=== PATIENT | male | born 1950 | race Caucasian/White ===

== ENCOUNTER 2023-06-07 16:56 | Inpatient (IN) | payer OTHER, SELFPAY ==
[2023-06-07] VITALS (11 sets, daily range): BP systolic 98–160; BP diastolic 24–90; BMI 24.8
[2023-06-07 13:46] LABS: % Basophils 0.4 % (0-2); % Eosinophils 1.6 % (0-6); % Immature Granulocytes 0.2 % (0-0.5); % Lymphocytes 18.5 % (20.5-51.1); % Monocytes 8.5 % (1.7-9.3); % Neutrophils 70.8 % (42.2-75.2); Absolute Eosinophils 0.1 10^3/uL (0-0.7); Absolute Lymphocytes 1.5 10^3/uL (1.2-3.4); Absolute Monocytes 0.7 10^3/uL (0.1-0.6); Absolute Neutrophils 5.9 10^3/uL (1.4-6.5); Hematocrit 42.3 % (39.0-52.0); Hemoglobin 14.2 g/dL (13.0-18.0); Mean Corp Hgb Conc. 33.6 g/dL (33.0-37.0); Mean Corpuscular Hgb 30.1 pg (27.0-31.0); Mean Corpuscular Volume 89.8 fL (80.0-94.0); Mean Platelet Volume 9.1 fL (7.4-10.4); Nucleated Red Blood Cells % 0 % (-); Platelet Count 215 10^3/uL (130-400); Red Blood Cell Count 4.71 10^6/uL (4.70-6.10); Red Cell Dist. Width 14.6 % (11.5-14.5); White Blood Cell Count 8.3 10^3/uL (4.8-10.8)
[2023-06-07 13:50] LABS: Lactic Acid 3.4 mmol/L (0.7-2.0)
[2023-06-07 13:52] LABS: ALT (SGPT) 21 U/L (0-50); AST (SGOT) 20 U/L (17-59); Albumin 2.6 g/dl (3.5-5.0); Alkaline Phosphatase 105 U/L (38-126); Blood Urea Nitrogen 17 mg/dl (9-20); Calcium 8.6 mg/dl (8.4-10.2); Carbon Dioxide 26 mmol/L (22-30); Chloride 101 mmol/L (98-107); Glucose 203 mg/dl (70-99); Potassium 5.2 mmol/L (3.5-5.1); Sodium 133 mmol/L (135-145); Total Bilirubin 0.5 mg/dl (0.2-1.3); Total Protein 5.5 g/dl (6.3-8.2); eGFR > 60.00
[2023-06-07 14:24] LABS: Lactic Acid 3.1 mmol/L (0.7-2.0)
[2023-06-07 14:36] LABS: Troponin I < 0.012 ng/ml
--- NOTE | 2023-06-07 14:51 | ED.GENMED ---
History of Present Illness
General
Chief Complaint: Breathing Problem
Source: patient and spouse
Exam Limitations: none
Time Seen by Provider: 06/07/23 13:32
Nursing documentation reviewed up to this point in time: agreed with
Travel History
Have you had any contact with someone who has COVID-19?: No
Do you have any symptoms of coronavirus? Fever > 100 degrees, chills, cough, shortness of breath, sore throat, loss of taste or smell, muscle aches, or headache?: No
History of Present Illness
History of Present Illness:
72-year-old male with Mari history of lung cancer currently on oral chemo treated at [place], history of atrial fibrillation currently on Eliquis, CAD hypertension hyperlipidemia diabetes presenting to the emergency department today with
concerns of shortness of breath and cough worsening over the past week was seen at [facility] 5 days ago had a thoracentesis but has had ongoing symptoms since. Claims that he had subjective fevers but denies any objective fevers. Denies specific
chest pain nausea vomiting. He claims that his exercise tolerance has been decreasing as well.
Past History
Past History
ED Past Medical History: Arrthythmia (Paroxysmal atrial fibrillation), CAD, Cancer (Prostate; adenocarcinoma of the lung diagnosed August 2021), HTN, Hypercholesterolemia and IDDM
ED Past Surgical History: Cardiac (CABG 2020) and Urological (Prostatectomy, urethral cuff)
Social History
Tobacco: Non-smoker
Alcohol: None
Drug: None
Personal:
Living: with family
Employment: Retired
Family History
Family History: Other (Noncontributory)
Review of Systems
Review of Systems
Allergies reviewed?: Yes
All Other Systems: ROS reviewed and negative except as documented in HPI and ROS
Phy Exam
Physical Exam
Physical Exam:
GENERAL: Alert , in no apparent distress
EYE: pupils equal and reactive
NECK: Supple, no significant adenopathy.
ENT: o/p clr, mmm.
CARDIAC: Crackles throughout the left lung mainly to the left lower lung, regular rate and rhythm .
LUNGS: Clear breath sounds bilaterally, no acute respiratory distress, no wheezes/rales/rhonchi
ABDOMEN: Soft, without focal tenderness, no r/g, no cvat
NEUROLOGICAL: Alert and oriented, no focal neuro deficits
SKIN: Warm and dry, skin intact.
MUSCULOSKELETAL: No edema, well perfused.
PSYCH: Normal and appropriate interaction.
Scores
Heart Failure Risk
Heart Failure Risk Score: Not Applicable
Course
Orders/Labs/Results
Orders:
Orders
06/07/23 13:29
EKG [Electrocardiogram (*1)] Stat
Reason for Study: Shortness of Breath
EKG- Treatment ONCE
06/07/23 13:31
Complete Blood Count/With Diff Urgent
Comprehensive Metabolic Panel Urgent
Lactate Level [Lactic Acid] Urgent
06/07/23 13:43
CT Chest Pe Study Urgent
Comment:
Reason For Exam: lung ca, cough, sob,
Cardiac Monitoring- Treatment ONCE
06/07/23 13:44
Electrocardiogram (*1) Stat
Reason for Study: Other
Other Reason for Exam: pneumonia
EKG- Treatment ONCE
06/07/23 13:55
Lactic Acid Q4H
Comment: CANCEL 2nd LACTIC ACID IF 1st LACTIC ACID IS LESS THAN 2
Troponin I Urgent
Blood Culture Q30M
ÁLVARO Source: Blood/Venous
Specimen Description:
06/07/23 15:18
Cefepime HCl [Maxipime] 2,000 mg IV NOW STA
06/07/23 15:38
0.9% Sodium Chloride 500 ml [Nss] 500 ml IV BOLUS
06/07/23 15:41
Vancomycin [Vancocin] 2,000 mg 0.9% Sodium Chloride 500 ml [Nss] 500 ml IV NOW
06/07/23 15:54
Blood Culture Q30M
ÁLVARO Source: Blood/Venous
Specimen Description:
06/07/23 16:22
Diabetes Management by Nurse Practitioner Routine
Consulting Provider: Liberty Mcdaniel
Was provider already notified?: Yes
PULMONARY CONSULT Routine
Consulting Provider: Reny Mabry
Was physician already notified: Yes
06/07/23 16:23
Admit/Transfer Patient As Directed
Co-Sign Provider:
Level of Care: Inpatient admission
Assign to:: Telemetry
Physician / Group: jack davis
Diagnosis: pneumonia
Reason for Telemetry: Arrhythmia
Date to Stop Telemetry: 06/10/23
Time to Stop Telemetry: 11:00
Reason for Hospitalization: pneumonia
pleural effusion
Expected length of stay greater than two midnights?: Yes
ELOS- Estimated Length of Stay in days: 3
I certify the patient meets the requirements for IP care: Yes
06/07/23 16:26
Code Status As Directed
Resuscitation Status: Full Code
06/07/23 16:52
Pantoprazole [Protonix IV] 40 mg IV NOW STA
06/07/23 16:54
Metoprolol [Lopressor] 5 mg IV NOW STA
06/07/23 17:09
Lactic Acid Q4H
Comment: CANCEL 2nd LACTIC ACID IF 1st LACTIC ACID IS LESS THAN 2
Procalcitonin Stat
PCT Algorithmm Indication: Respiratory
06/07/23 18:25
Dextrose 50%-Water [Dextrose 50% Syringe] 12.5 grams IV [id number] PRN
Enoxaparin Sodium [Lovenox] 40 mg SC QPM
Glucagon [GlucaGen] 1 mg IM PRN PRN
Insulin Pump [Patient's Own Insulin Pump:] 1 ea SC ACHS
Ipratropium/Albuterol Sulfate [Duoneb] 3 ml INH R Q4HPRN PRN
06/07/23 18:25
Legionella Urinary Antigen Routine
ÁLVARO Source: Urine
Specimen Description:
Respiratory Culture/Gram Stain Routine
ÁLVARO Source: Sputum
Specimen Description:
Activity As Directed
Activity Level: Out of Bed-Early Mobility
Bedside Glucose Monitoring As Directed
Frequency: AC&HS
Comment: Change to q6h if pt on TPN, tube feeding or not eating
Intake/ Output As Directed
Frequency: Per unit guidelines
Vital Signs As Directed
Frequency: Per unit guidelines
Weight As Directed
Frequency: Once
Comment: on admission
Pt Eval And Treat Routine
Activity Level: As Tolerated
DX Deep Vein Thrombosis Video Routine
06/07/23 19:00
Gabapentin [Neurontin] 600 mg PO BID@0800,1700
Insulin Pump [Patient's Own Insulin Pump] See Dose Instructions SC ACHS
METFORMIN HCl [Glucophage] 1,000 mg PO BID@0800,1700
06/07/23 20:00
Guaifenesin [Mucinex] 600 mg PO Q12
06/07/23 22:00
Gabapentin [Neurontin] 1,200 mg PO HS
Pravastatin Sodium [Pravachol] 40 mg PO HS
Trazodone [Desyrel] 200 mg PO HS
06/08/23 Breakfast
1800 calorie (15 carb) Diabetic
At Your Request: Full Participation
Cefepime HCl [Maxipime] 1,000 mg IV Q8H
06/08/23 07:29
Basic Metabolic Panel IN AM
Complete Blood Count/No Diff IN AM
Glycohemoglobin (HgbA1c) IN AM
06/08/23 08:00
Amlodipine [Norvasc] 7.5 mg PO DAILY
Aspirin Chewable [Low Strength Aspirin] 81 mg PO DAILY
Cetirizine HCl [Zyrtec] 10 mg PO DAILY
Cyclobenzaprine HCl [Flexeril] 10 mg PO DAILY
Escitalopram Oxalate [Lexapro] 10 mg PO DAILY
Gemfibrozil [Lopid] 600 mg PO DAILY
Metoprolol [Lopressor] 25 mg PO DAILY
Pantoprazole [Protonix] 40 mg PO DAILY
06/09/23 06:00
Basic Metabolic Panel IN AM
Complete Blood Count/No Diff IN AM
06/10/23 06:00
Basic Metabolic Panel IN AM
Complete Blood Count/No Diff IN AM
06/10/23 11:00
DC Protocol for Telemetry ONCE
06/11/23 06:00
Basic Metabolic Panel IN AM
Complete Blood Count/No Diff IN AM
06/12/23 06:00
Basic Metabolic Panel IN AM
Complete Blood Count/No Diff IN AM
Abnormal Lab Results
06/07/23 06/07/23
13:31 13:55
RDW 14.6 H %
(11.5-14.5)
Absolute Monos (auto) 0.7 H 10^3/uL
(0.1-0.6)
Lymphocytes % 18.5 L %
(20.5-51.1)
Sodium 133 L mmol/L
(135-145)
Potassium 5.2 H mmol/L
(3.5-5.1)
Glucose 203 H mg/dl
(70-99)
Lactic Acid 3.4 H mmol/L 3.1 H mmol/L
(0.7-2.0) (0.7-2.0)
Total Protein 5.5 L g/dl
(6.3-8.2)
Albumin 2.6 L g/dl
(3.5-5.0)
06/07/23 13:31
06/07/23 13:31
Vital Signs
Initial and Last Documented VS:
Initial Vital Signs
Temp Pulse Resp BP Pulse Ox
97.7 F 98 20 132/79 97
06/07/23 12:46 06/07/23 12:46 06/07/23 12:46 06/07/23 12:46 06/07/23 12:46
Last Documented Vital Signs
Temp Pulse Resp BP Pulse Ox
98.7 F 110 18 152/80 96
06/07/23 23:12 06/07/23 23:12 06/07/23 23:12 06/07/23 23:12 06/07/23 23:12
MDM/Problems Addressed
MDM/Problems Addressed:
72-year-old male presenting to the emergency department today with concerns of shortness of breath and cough worsening for the past 10 days recent thoracentesis at [facility] 5 days ago ongoing symptoms since has had subjective fevers but denies
objective fever. Upon arrival patient's vital signs are normal normal pulse ox no white count lactic acid was elevated to 3.4. Concern the patient does have a history of cancer with elevated lactic acid and is immunosuppressed we will start IV
antibiotics cefepime and vancomycin. Additionally CT scan showing a large left pleural effusion with adjacent pulmonary consolidation atelectasis versus pneumonia. Patient will be admitted for further treatment. Patient would likely benefit from
tap of the effusion. Additionally concern for pneumonia and immunosuppressed state patient started on IV antibiotics.
*Critical Care Note
Total Time (30-74mins, 75-104mins- exclusive of procedures): Not Applicable
ED Attending Note
-
Portions of this chart may have been created with voice recognition software.� Occasional wrong word or��sound alike� substitutions may have occurred due to the inherent limitations of voice recognition software.
Discharge Plan
Departure
Patient Disposition: Admit
Date of Disposition: 06/07/23
Time of Disposition: 15:43
Admit to: Med/Surg
Admit to doctor: Norman
Presentation/result/management discussed w/ accepting MD/DO: Hospitalist
Patient with high blood pressure during this ER visit?: No
Condition: Fair
Covid-19: Not Applicable
Discharge Problem:
Pleural effusion, Pneumonia
Interventions
Interventions:
*Risk Screen - Suicide Last Done: 06/07/23 20:10
*General Assessment Last Done: 06/07/23 12:46
*Neglect/Abuse Screening Last Done: 06/07/23 14:26
ED- Fall Risk Assessment Last Done: 06/07/23 14:26
*ED COVID-19 Vaccine History Last Done: 06/07/23 12:46
*Nursing Disposition Last Done: 06/07/23 17:30
ED- Cardiac Assessment Last Done: 06/07/23 14:26
ED- Pulmonary Assessment Last Done: 06/07/23 14:26
Discharge Date and Time
Discharge Date/Time: 06/07/23 18:02
[2023-06-07] MEDS: MAXIPIME 2000 MG IV (15:28)
--- NOTE | 2023-06-07 15:46 | HPS.HSE ---
Addendum entered and electronically signed by Anthony Austin MD 06/07/23 18:11:
I saw and examined the patient.
The AGING BOX HAND's note was reviewed and I agree with the note.
Patient is a 72-year-old male with history of stage IV adenocarcinoma of right lung came to ER with new onset of left-sided effusion. Patient was hospitalized in January 03 in our hospital for similar presentation of left-sided pleural effusion
requiring thoracentesis. In May 06 patient again required thoracentesis followed by this Thursday patient require another thoracentesis. Patient was in [facility] and primary oncologist in [facility]. Patient was in [facility] as
well. Patient started to having cough and shortness of breath and came to [place] for further care. CT chest in ER showed recurrence of left-sided effusion. Patient denies of having any fever episode/productive phlegm.
HEENT: No pallor, cyanosis, or jaundice. Throat clear.
NECK: Supple. No JVD.
RESPIRATORY: Lungs clear to auscultation.
CVS: S1, S2 normal. RRR. No murmur, rub or gallop.
ABDOMEN: Soft, non-tender. No distension. BS+/normal.
EXTREMITIES: No peripheral cyanosis or edema.
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 No focal deficits.
Recurrent malignant left-sided pleural effusion
-Thoracentesis done in January 03 x2
-Again in May 06 x1
-Earlier in week on Thursday in [facility].
-CT chest showing recurrence of left-sided effusion
-Patient not hypoxic/dyspneic
-Pulmonology evaluation requested as patient may benefit with Pleurx tube placement
Stage IV adenocarcinoma of right lung
Was on Capmatinib therapy discontinued due to edema
History of right malignant effusion with Pleurx placement in with removal
-Primary oncologist at [facility]
paroxysmal afib
-not on AC. continue metoprolol
IDDM
- patient have insulin pump and ok managing glucose
Full code - confirmed with patient
Original Note:
Family Physician
-
Family Physician: Tamanna Schmitt
Chief Complaint
-
sob
cough
History of Present Illness
72-year-old male with medical history of lung ca on oral chemo, pleural effusion, atrial fibrillation currently on Eliquis, CAD hypertension hyperlipidemia diabetes presenting to the emergency department today with concerns of shortness of breath
and cough worsening over the past week. sob worse with activity. cough is non productive. chest pain with cough. he feels feverish. did not check the temperature at home. denied abdominal pain, n,v,d. denied dysuria or hematuria. denied [place], dizzy or
syncopal episode. was seen at [facility] 5 days ago had a thoracentesis but has had ongoing symptoms since.
CT chest with pleural effusion and pneumonia. giving iv abx.
Medical History
Past Medical History
Past Medical History: Reports Other
Additional Past Medical History:
atrial fib
CAD
HTN
HLD
lung ca
Past Surgical History: Reports Other
Additional Past Surgical History:
CABG
prostatectomy
ureteral cuff
Social History
Tobacco: Former Smoker
Alcohol: None
Drug: None
Personal:
Living: With Family
Family History
Family History: Not pertinent
Allergies / Home Medications
Allergies reflects when Allergies were last updated in [facility].
Home Medications with original date entered in [facility]
Allergy/Medication List:
Allergies
Allergy/AdvReac Type Severity Reaction Status Date / Time
house dust mite Allergy Itching Verified 06/07/23 12:49
lisinopril Allergy COUGH Verified 06/07/23 12:49
pentazocine [From Talwin] Allergy PARALYZED Verified 06/07/23 12:49
Home Medications
Insulin Pump [Patient's Own Insulin Pump:] 0 ea SC ACHS Diabetes 06/12/20
aspirin 81 mg chewable tablet 81 mg PO DAILY Blood clot prevention/tx 06/12/20
escitalopram oxalate 10 mg tablet 10 mg PO DAILY Depression 06/12/20
metformin 500 mg tablet 1,000 mg PO BID Diabetes 06/12/20
omeprazole 20 mg capsule,delayed release 20 mg PO DAILY Gastrointestinal issue 06/12/20
amlodipine 5 mg tablet (Norvasc) 7.5 tab PO DAILY Blood pressure 08/31/21
trazodone 100 mg tablet 200 mg PO HS Mental Health/Anxiety 08/31/21
cetirizine 10 mg tablet (Zyrtec) 10 mg PO DAILY 06/07/23
cyclobenzaprine 10 mg tablet 10 mg PO DAILY 06/07/23
gabapentin 100 mg capsule 1,000 mg PO HS 06/07/23
gabapentin 100 mg capsule 500 mg PO BID@0800,1700 06/07/23
gemfibrozil 600 mg tablet 600 mg PO DAILY 06/07/23
metoprolol tartrate 25 mg tablet 25 mg PO DAILY 06/07/23
pravastatin 40 mg tablet 40 mg PO HS 06/07/23
Review of Systems
-
Constitutional: Reports No Symptoms
EENT: Reports No Symptoms
Respiratory: Reports Cough and Trouble Breathing
Cardiac: Reports No Symptoms
Abdomen/GI: Reports No Symptoms
: Reports No Symptoms
Musculoskeletal: Reports No Symptoms
Skin: Reports No Symptoms
Neurological: Reports No Symptoms
Endocrine: Reports No Symptoms
Hematologic/Lymphatic: Reports No Symptoms
Psych: Reports No Symptoms
Physical Exam
Vital Signs
Vital Signs
Temp Pulse Resp BP Pulse Ox
97.7 F 92 17 129/68 98
06/07/23 12:46 06/07/23 15:30 06/07/23 15:30 06/07/23 15:00 06/07/23 15:30
Physical Exam
General: Well Developed, Well Nourished and No Apparent Distress
HEENT: NormoCephalic, Moist mucous membranes and Atraumatic
Respiratory: Clear
Cardiac: S1/S2 and Regular Rhythm; No Murmur or Rub
GI: Soft, Non Tender, Non Distended and Normal Bowel Sounds; No Organomegaly
Rectal: Deferred by Provider
Musculoskeletal: No Clubbing, No Cyanosis and No Edema
Skin: No Rash
Neuro: AO x 3 and Nonfocal/grossly intact
Psych: Calm
Laboratory Results
-
06/07/23 13:31
06/07/23 13:31
Laboratory Results
Lactic Acid 3.1 mmol/L (0.7-2.0) H 06/07/23 13:55
Total Bilirubin 0.5 mg/dl (0.2-1.3) 06/07/23 13:31
AST 20 U/L (17-59) 06/07/23 13:31
ALT 21 U/L (0-50) 06/07/23 13:31
Alkaline Phosphatase 105 U/L (38-126) 06/07/23 13:31
Troponin I < 0.012 ng/ml 06/07/23 13:55
Data Reviewed
-
CT Scan: Report Reviewed by me
Lab Data: Labs Reviewed by me
Impression/Plan
-
# sob/cough likely from pleural effusion
-CT chest with impression of No evidence of pulmonary embolism.Large left pleural effusion. Adjacent pulmonary parenchymal consolidation, atelectasis versus pneumonia.
-iv vanco and cefepime in ER
-will continue IV cefepime
-blood culture sent from ER
-Tylenol prn for fever
-Mucinex prn for cough
-lactic 3.1
-trend lactic
-underwent thoracentesis last week , yielded 1500ml
-pulmonology consulted for Pleurx cath
# History of lung cancer
-On oral chemo
-follow [facility] oncologist
# Hyponatremia/hypokalemia
-Sodium 133, K5.2
-continue to monitor
#paroxysmal atrial fibrillation
-EKG with NSR
-metoprolol continued
#Insulin-dependent diabetes mellitus
-diabetic AGING BOX HAND consulted regarding insulin Pump
-metformin continued
#Essential hypertension
-Norvasc continued
Hyperlipidemia
-gemfibrozil continued
-statin continued
#GERD
-PPI continued
History of prostate cancer with prostatectomy
#Coronary disease with history of bypass
-asa continued
#depression
-Celexa continued
Full code
[2023-06-07] MEDS: VANCOCIN 540 MG IV (15:47)
[2023-06-07] MEDS: NSS 500 IV (15:47)
[2023-06-07 17:25] LABS: Lactic Acid 1.9 mmol/L (0.7-2.0)
[2023-06-07 17:48] LABS: Procalcitonin < 0.05 ng/ml (0.0-0.25)
[2023-06-07 18:26] LABS: Glucose - Point of Care 77 mg/dl (70-99)
[2023-06-07] MEDS: MUCINEX 600 MG PO (20:20)
[2023-06-07] MEDS: GLUCOPHAGE 1000 MG PO (20:20)
[2023-06-07] MEDS: NEURONTIN 600 MG PO (20:20)
[2023-06-07] MEDS: LOVENOX 40 MG SC (20:21)
[2023-06-07] MEDS: PATIENT'S OWN INSULIN PUMP SC (20:31)
--- NOTE | 2023-06-07 21:19 | PTCARENOTE ---
Patient received in bed from ED @ 1900. Pt AAOx3, ambulated from stretcher to bed. Oriented to room and call mackenzie.
[2023-06-07 21:24] LABS: Glucose - Point of Care 201 mg/dl (70-99)
[2023-06-07] MEDS: NEURONTIN 1200 MG PO (21:55)
[2023-06-07] MEDS: DESYREL 200 MG PO (21:55)
[2023-06-07] MEDS: PRAVACHOL 40 MG PO (21:55)
[2023-06-07] MEDS: PATIENT'S OWN INSULIN PUMP 6 UNITS SC (22:06)
[2023-06-08] MEDS: MAXIPIME 1000 MG IV ×2 (05:10→13:30)
[2023-06-08] MEDS: STERILE WATER FOR INJECTION 10 ML IV ×2 (05:11→13:30)
[2023-06-08 07:30] VITALS: BP 128/84
[2023-06-08 08:01] LABS: Hematocrit 40.9 % (39.0-52.0); Mean Corp Hgb Conc. 34.2 g/dL (33.0-37.0); Mean Corpuscular Hgb 30.2 pg (27.0-31.0); Mean Corpuscular Volume 88.3 fL (80.0-94.0); Platelet Count 200 10^3/uL (130-400); Red Blood Cell Count 4.63 10^6/uL (4.70-6.10); Red Cell Dist. Width 14.6 % (11.5-14.5)
[2023-06-08] MEDS: PROTONIX 40 MG PO (08:18)
[2023-06-08] MEDS: LOW STRENGTH ASPIRIN 81 MG PO (08:18)
[2023-06-08] MEDS: LEXAPRO 10 MG PO (08:18)
[2023-06-08] MEDS: FLEXERIL 10 MG PO (08:18)
[2023-06-08] MEDS: NORVASC 7.5 MG PO (08:18)
[2023-06-08] MEDS: ZYRTEC 10 MG PO (08:19)
[2023-06-08] MEDS: LOPID 600 MG PO (08:19)
[2023-06-08] MEDS: NEURONTIN 600 MG PO (08:19)
[2023-06-08] MEDS: LOPRESSOR 25 MG PO (08:19)
[2023-06-08] MEDS: GLUCOPHAGE 1000 MG PO (08:19)
[2023-06-08] MEDS: MUCINEX 600 MG PO (08:19)
[2023-06-08] MEDS: PATIENT'S OWN INSULIN PUMP SC ×2 (08:24→10:32)
[2023-06-08 08:25] LABS: Glucose - Point of Care 103 mg/dl (70-99)
[2023-06-08 08:27] LABS: Blood Urea Nitrogen 15 mg/dl (9-20); Calcium 8.2 mg/dl (8.4-10.2); Carbon Dioxide 25 mmol/L (22-30); Chloride 106 mmol/L (98-107); Estimated Creatinine Clearance 62 ml/min; Glucose 110 mg/dl (70-99); Potassium 4.5 mmol/L (3.5-5.1); Sodium 134 mmol/L (135-145); eGFR > 60.00
--- NOTE | 2023-06-08 08:31 | PN.DE.MGMTRT ---
Insulin Management
- -
06/08/2023: Insulin Pump Management Consult
72 year old male admitted Choledocholithiasis, presumed Acute cholangitis, E. coli/Klebsiella bacteremia and left pleural effusion.
PMH: ASCVD, HTN, HCL, prostate CA, diabetes. Was using Tandem Tslim X2 insulin pump with DexCom G6 CGM RELAY CHECKER. A1C 7.5%, [facility] Insulin pump currently active and in place. Glucose has been stable, 77 before
dinner, minor elevation @HS up to 201 and down to 103 this AM before breakfast.
Pt is awake, alert and oriented, at bedside, has brought in pump supplies and insulin, He is able to manage Insulin pump, settings as follows:
Basal corrective CHO ratio target
12am 1.15 30 1:17 110
2am 1.65 30 1:1.7 110
12pm 1.1 30 1:1.4 110
5pm 1.1 30 1:1.4 110
6pm 1.1 30 1:1.4 110
9pm 1.3 30 1:7 110
24 hour basal total 33.34 units
Patient has his CGM- DexCom in place, made aware that nursing will check accucheks ACHS.
Will cont current regimen, without changes to pump settings.
Patient to correct and take insulin via pump for meals and corrections.
Discussed with Nurse to provide pt with Insulin pump log sheet
Diabetes History
- -
Type of Diabetes: 1
Pre-Admission Diabetes Regimen
06/07/23 06/08/23
13:31 07:29
Creatinine 1.1 1.1
Insulin Pump Settings
IP Diabetes Regimen
06/07/23 06/07/23 06/07/23
13:31 18:25 21:22
Glucose 203 H
POC Glucose 77 201 H
06/08/23 06/08/23
07:29 08:23
Glucose 110 H
POC Glucose 103 H
Patient Education
[2023-06-08 09:15] VITALS: BP 112/80; BP_SYST 93
[2023-06-08 09:22] LABS: Glycohemoglobin (HgbA1c) 8.7 % (4.0-5.6)
[2023-06-08 09:24] VITALS: BMI 24.8
[2023-06-08 09:48] VITALS: BP 99/65; BP_SYST 88
[2023-06-08 10:14] LABS: Body Fluid pH 7.38
[2023-06-08 10:23] LABS: Body Fluid WBC 588 /CUMM
[2023-06-08 10:33] LABS: Body Fluid Second Tech AMA
[2023-06-08 10:39] LABS: Body Fluid Glucose 108 mg/dl; Body Fluid LDH 576 U/L; Body Fluid Protein 3.6 g/dl
--- NOTE | 2023-06-08 11:09 | CM ---
Patient seen bedside with spouse.
Patient lives in 2 story home with 1 step to enter.
Patient independent prior to admission with a cane.
Patient has had VN in the past with Carlene KINCAID.
PCP: Dr Schmitt
Pharmacy: [facility]
Plan: home no needs anticipated.
[2023-06-08 11:30] VITALS: BP 101/58
[2023-06-08 11:38] LABS: Glucose - Point of Care 176 mg/dl (70-99)
[2023-06-08 14:15] VITALS: PULSE 89; O2SAT 96
[2023-06-08 15:30] VITALS: BP 140/73
--- NOTE | 2023-06-08 15:36 | W.PN.HOSP.TC ---
Today's Communication/Plan
-
Stop AB
Discharge
Assessment / Plan
Assessment / Plan
72-year-old male with pleural effusion. Presents with increasing shortness of breath and cough nonproductive he also felt feverish did not check temperatures at home. He follows up with [facility] had a thoracentesis 5 days prior to arrival.
CVS: S1-S2 normal
Chest:decreased left base,
Abdomen: Soft, NT / Bowel sounds present
Extremities: No edema, normal pulses
ENGRAVER RUBBER: Non focal exam
# Recurrent pleural effusion
Previous pleural effusion was in August 2021
History of right-sided Pleurx placement and removal in the past
Thoracentesis 5 days prior to arrival and also on 06/08/2023 with 1400 mL of dark fluid
He had another thoracentesis on May 07 at [facility]
Stop antibiotics
Procalcitonin negative
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
Was on capmatinib 100 August 2022 which was then discontinued secondary to edema.
He is on a chemo pill which the family does not know the name.
# Lactic acidosis-better
Unlikely related to infection
# History of left lower lobe PE August 2021
# Paroxysmal atrial fibrillation on Eliquis with outpatient
# History of prostate cancer status post prostatectomy
# Coronary disease with history of CABG
Aspirin, metoprolol
# Hyperlipidemia-continue gemfibrozil, pravastatin
# Diabetes-insulin pump and metformin
Hemoglobin A1c 8.7
# Hypertension-on Norvasc, metoprolol
# History of E. coli and Klebsiella bacteremia secondary to cholangitis
# Depression-Lexapro, trazodone
# GERD-PPI
# Ex-smoker
# DVT prophylaxis-
Eliquis
Patient wants to go to [facility] for procedure he fears that it is not covered at [facility]. At present patient feels a lot better after thoracentesis. Therefore he wishes to go home and pursue this as an outpatient. Discussed with
pulmonary okay for discharge. No need for antibiotics. Patient is aware that he needs repeat x-rays as outpatient he is aware to get Pleurx done as outpatient so that,He does not end up in hospital in an emergency situation requiring thoracentesis.
Discharge time 32 min
Anticipated Discharge: Today
Subjective/Interval History
-
Date of Service: June 08, 2023
Objective Data
-
Labs:
Laboratory Results
06/08/23
07:29
WBC 8.0
Hgb 14.0
Hct 40.9
Plt Count 200
Sodium 134 L
Potassium 4.5
Chloride 106
Carbon Dioxide 25
BUN 15
Creatinine 1.1
Glucose 110 H
Calcium 8.2 L
Vital Signs:
Vital Signs
Temp Pulse Resp BP Pulse Ox
98.2 F 72 16 101/58 98
06/08/23 11:30 06/08/23 11:30 06/08/23 11:30 06/08/23 11:30 06/08/23 11:30
--- NOTE | 2023-06-08 15:46 | CON.PUL ---
Consultation
Consultation Request
Date/Time Consultation Requested: 06/08/2023
Date/Time Consultation Performed: 06/08/2023
Requesting Provider: Dr. Potts
Performing Provider: Dr. Charles Urbano
Reason for Consultation: Recurrent malignant pleural effusion
Medical History
-
History of Present Illness:
72-year-old man with history of stage IV adenocarcinoma of the lung, came to the hospital with a new pleural effusion. He had thoracentesis in December 2022 at [facility] with similar presentation.
In April of this year again required thoracentesis, required additional thoracentesis this past Thursday.
He usually follows up with oncology at [facility].
Came to [facility] with cough and shortness of breath.
CT of the chest demonstrated enlarged left pleural effusion.
Patient underwent thoracentesis ordered by our team. No complications.
Patient currently denies any chest pain or shortness of breath.
Reports improvement after large-volume thoracentesis.
Past Medical History
Past Medical History: Other (See assessment and plan section)
Social History
Tobacco: Non-smoker
Alcohol: None
Drug: None
Family History
Family History: Reviewed & Not Pertinent
Allergies / Home Medications
Allergies
Allergy/AdvReac Type Severity Reaction Status Date / Time
house dust mite Allergy Itching Verified 06/07/23 12:49
lisinopril Allergy COUGH Verified 06/07/23 12:49
pentazocine [From Talwin] Allergy PARALYZED Verified 06/07/23 12:49
Home Medications
Medication Instructions Recorded Confirmed Last Taken Type
Insulin Pump [Patient's Own 0 ea SC ACHS Diabetes 06/12/20 06/07/23 12/13/22 08:00 History
Insulin Pump:]
aspirin 81 mg chewable tablet 81 mg PO DAILY Blood clot 06/12/20 06/07/23 06/07/23 History
prevention/tx
escitalopram oxalate 10 mg tablet 10 mg PO DAILY Depression 06/12/20 06/07/23 06/07/23 History
metformin 500 mg tablet 1,000 mg PO BID Diabetes 06/12/20 06/07/23 06/07/23 History
omeprazole 20 mg capsule,delayed 20 mg PO DAILY Gastrointestinal 06/12/20 06/07/23 06/07/23 History
release issue
amlodipine 5 mg tablet (Norvasc) 7.5 tab PO DAILY Blood pressure 08/31/21 06/07/23 06/07/23 History
trazodone 100 mg tablet 200 mg PO HS Mental Health/Anxiety 08/31/21 06/07/23 06/06/23 History
cetirizine 10 mg tablet (Zyrtec) 10 mg PO DAILY Allergies 06/07/23 06/07/23 06/07/23 History
cyclobenzaprine 10 mg tablet 10 mg PO DAILY Muscle Spasms 06/07/23 06/07/23 06/07/23 History
gabapentin 100 mg capsule 1,000 mg PO HS Neurological 06/07/23 06/07/23 06/06/23 History
Condition
gabapentin 100 mg capsule 500 mg PO BID@0800,1700 06/07/23 06/07/23 06/07/23 History
Neurological Condition
gemfibrozil 600 mg tablet 600 mg PO DAILY High Cholesterol 06/07/23 06/07/23 06/07/23 History
metoprolol tartrate 25 mg tablet 25 mg PO DAILY Blood Pressure 06/07/23 06/07/23 06/07/23 History
pravastatin 40 mg tablet 40 mg PO HS High Cholesterol 06/07/23 06/07/23 Unknown History
Review of Systems
-
History Source: Patient
All other systems: Negative unless noted
Vitals / Labs / Diagnostic Testing
Vital Signs
Temp Pulse Resp BP Pulse Ox
98.2 F 72 16 101/58 98
06/08/23 11:30 06/08/23 11:30 06/08/23 11:30 06/08/23 11:30 06/08/23 11:30
Lab Data
06/08/23 07:29
06/08/23 07:29
Microbiology
06/07/23 13:55 Blood/Venous Blood Culture - Preliminary
No Growth in 24 hours- Final report to follow
06/08/23 09:58 Pleural Fluid Gram Stain - Preliminary
Diagnostic Testing:
Physical Exam
-
HEENT: Normocephalic
Cardiovascular: S1/S2 and Regular Rhythm
Respiratory: Clear and Other (Decreased breath sounds on the left base)
GI: Soft and Non Distended
Neurology: Awake, Alert, Oriented and No Motor Deficits
Skin: Warm
General: Respiratory Distress (n)
Assessment
-
72-year-old man with history of metastatic lung cancer. Admitted with cough and shortness of breath. Found to have a left pleural effusion which is recurrent and known to be malignant since December 2022. Multiple thoracentesis including
December, April 2023 and May 2023.
Recurrent left pleural effusion: Malignant based on cytology from 12/2022.
Status post thoracenteses 1400cc 06/08/2023.
7.38 pH/white blood cells 588/mononuclears 85%/fluid glucose 108/fluid protein 3.6/LDH 576.
S/p L thoracentesis 12-14: 1.65 L, theodore color, Gstain/cx negative, adenocarcinoma MPE (lung origin)
S/p therapeutic L thoracentesis 12-18: 2L
Conditions present prior admission:
E coli and Kleb pn bacteriemia 12-13, cholelithiasis/cholangitis source
Choledocolithiasis
ERCP 12-16 accomplished complete removal of stones, one plastic stent placed
Robotic laparoscopic cholecystectomy 12-17.
Recurrent left pleural effusion: Malignant 12/2022.
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
On capmatinib (MET inhibitor, TKI) for 9 m till August 2022 (discontinued due to diffuse edema)
LLL PE August 2021 at time of above outside adm, provoked event
[facility] adm August 2021: R PF, s/p thoracentesis 08-31-21 (adenocarcinoma MPE of lung origin)
According to patient, last chest CT at [facility] ([facility]) in July 2022 with no evidence of new mets
Paroxysmal atrial fibrillation, on apixaban
CAD, s/p CABG 2020
Prostate cancer, s/p surgery
HTN
HLD
IDDM
Former smoker
Plan and recommendations:
Known malignant pleural effusion, recurrent. Reaccumulating faster the last month or so.
Records reviewed in detail, prior imaging and cytology reviewed in detail.
Patient is on maintenance therapy for his cancer.
-
Status post thoracenteses on the left without complications. Patient feels better.
Denies any phlegm production, hemoptysis or chest pain.
Does not appear toxic, no need for antibiotics.
PleurX catheter will be indicated: Patient states that he will follow-up with his oncologist at [facility].
Usually he gets procedures done at the [facility] in [place].
I advised him to touch base sooner rather than later with his oncologist to arrange for the procedure to avoid readmission to the hospital.
Discussed with Brenden Chavez to JANIE from my perspective.
I offered the patient local follow-up but he states that because of his insurance he is unable to follow-up locally.
--- NOTE | 2023-06-08 16:10 | W.DS.TRANS ---
Addendum entered and electronically signed by Quintin Gillis MD 06/08/23 17:21:
Dictation- [id number]
Original Note:
DC Summary - Requirements Manager
-
Discharge Instructions:
Sleep Apnea Risk Intermediate
Discharge Diagnosis/Procedures Recurrent pleural effusion on the left side,
adenocarcinoma of the lung, atrial fibrillation,
depression, high cholesterol, high blood
pressure, diabetes,
Diet As tolerated
Activity As tolerated
Driving Restrictions As prior to admission
Instructions:
Stand-Alone Forms:
Changes to Home Medications: No
Discharge Medications:
DC Medications w/original date entered in [employer]
Insulin Pump [Patient's Own Insulin Pump:] 0 ea SC ACHS Diabetes 06/12/20
aspirin 81 mg chewable tablet 81 mg PO DAILY Blood clot prevention/tx 06/12/20
escitalopram oxalate 10 mg tablet 10 mg PO DAILY Depression 06/12/20
metformin 500 mg tablet 1,000 mg PO BID Diabetes 06/12/20
omeprazole 20 mg capsule,delayed release 20 mg PO DAILY Gastrointestinal issue 06/12/20
amlodipine 5 mg tablet (Norvasc) 7.5 tab PO DAILY Blood pressure 08/31/21
trazodone 100 mg tablet 200 mg PO HS Mental Health/Anxiety 08/31/21
cetirizine 10 mg tablet (Zyrtec) 10 mg PO DAILY Allergies 06/07/23
cyclobenzaprine 10 mg tablet 10 mg PO DAILY Muscle Spasms 06/07/23
gabapentin 100 mg capsule 1,000 mg PO HS Neurological Condition 06/07/23
gabapentin 100 mg capsule 500 mg PO BID@0800,1700 Neurological Condition 06/07/23
gemfibrozil 600 mg tablet 600 mg PO DAILY High Cholesterol 06/07/23
metoprolol tartrate 25 mg tablet 25 mg PO DAILY Blood Pressure 06/07/23
pravastatin 40 mg tablet 40 mg PO HS High Cholesterol 06/07/23
Home Medication Changes
Pending Results: Yes
Additional Pending Results:
pleural fluid culture
== END 2023-06-08 17:05 | disposition home or self-care (01) | DRG 181 ==
LOC: 4 WEST ACU 16:56
PROVIDERS: Physician Assistant; Radiology Vascular & Interventional Radiology; Registered Nurse; ADMITTING PHYSICIAN Hospitalist; ATTENDING PHYSICIAN Hospitalist; CONSULT PHYSICIAN Internal Medicine Critical Care Medicine; EMERGENCY PHYSICIAN Emergency Medicine; FAMILY PHYSICIAN Internal Medicine
PROC: 0W993ZX Drainage of Right Pleural Cavity, Percutaneous Approach, Diagnostic (ICD-10-PCS; 2023-06-08)
DX: C34.91 Malignant neoplasm of unspecified part of right bronchus or lung (principal); J91.0 Malignant pleural effusion; I48.0 Paroxysmal atrial fibrillation; E78.00 Pure hypercholesterolemia, unspecified; E11.9 Type 2 diabetes mellitus without complications; I10 Essential (primary) hypertension; K21.9 Gastro-esophageal reflux disease without esophagitis; F32.A Depression, unspecified; Z79.82 Long term (current) use of aspirin; Z79.84 Long term (current) use of oral hypoglycemic drugs; Z85.46 Personal history of malignant neoplasm of prostate; Z87.891 Personal history of nicotine dependence
CPT/HCPCS: 88305; 32555; 71045; 71275; 80048; 80053; 82945; 82962; 83036; 83605; 83615; 83986; 84145; 84157; 84484; 85025; 85027; 87015; 87040; 87070; 87205; 88112; 89051; 93005; 96365; 96366; 96375; 97161; 99285; Q9967

== ENCOUNTER 2023-07-03 15:19 | Inpatient (IN) | payer MEDICARE, OTHER, SELFPAY ==
[2023-07-03] VITALS (16 sets, daily range): BP systolic 84–141; BP diastolic 60–98; BMI 22.6; BMI 22.1
--- NOTE | 2023-07-03 11:58 | ED.GENMED ---
History of Present Illness
General
Chief Complaint: Breathing Problem
Time Seen by Provider: 07/03/23 11:46
Travel History
Have you had any contact with someone who has COVID-19?: No
Do you have any symptoms of coronavirus? Fever > 100 degrees, chills, cough, shortness of breath, sore throat, loss of taste or smell, muscle aches, or headache?: Yes
Symptoms:: SOB
History of Present Illness
History of Present Illness:
71-year-old male with known history of adenocarcinoma of the lung, A-fib, recurrent pleural effusion status post left Pleurx catheter presents to the emergency department for evaluation of difficulty breathing developing over the past day. Visiting
nurses drained approximately 500 mL from the patient's left Pleurx catheter this morning. Patient states it was blood-tinged drainage. He also notes that his catheter has been frequently bloody over the past several days and at the recommendation
of his oncology team his Eliquis was discontinued 3 days ago. The catheter was placed at the [facility] approximately 1 week ago, he was admitted to this hospital pleural effusion last month thoracentesis. He also notes that his insulin nor has his Dexcom
is working and he has not been administering any insulin for at least 3 to 4 days. Has generally not had an appetite.
Past History
Past History
ED Past Medical History: Arrthythmia (Paroxysmal atrial fibrillation), CAD, Cancer (Prostate; adenocarcinoma of the lung diagnosed August 2021), HTN, Hypercholesterolemia and IDDM
ED Past Surgical History: Cardiac (CABG 2020) and Urological (Prostatectomy, urethral cuff)
Social History
Tobacco: Non-smoker
Alcohol: None
Drug: None
Personal:
Living: with family
Employment: Retired
Family History
Family History: Other (Noncontributory)
Review of Systems
Review of Systems
Allergies reviewed?: Yes
All Other Systems: ROS reviewed and negative except as documented in HPI and ROS
Phy Exam
Physical Exam
Physical Exam:
GEN: Thin and frail appearing, cachectic
Eyes: PERRLA, EOMs intact, no scleral icterus
HENT: NCAT, oral mucosa dry
Lungs: Diminished left lower lobe breath sounds, otherwise clear, tachypneic with accessory muscle use
Cardiac: Profoundly tachycardic, no murmurs
Abdomen: Soft, flat abdomen, no tenderness. Right lower abdominal wall insulin pump is present with no active effusion, left lower abdominal Dexcom is present
Neuro: AO x 3, no focal deficits to BUE/BLE, normal sensation throughout
MSK: No gross deformity or ecchymosis. No edema. No digital clubbing
Skin: No rashes, petechiae.
Psych: Calm, cooperative, proper hygiene
Scores
Heart Failure Risk
Heart Failure Risk Score: Not Applicable
Course
Orders/Labs/Results
Orders:
Orders
07/03/23 11:44
Electrocardiogram (*1) Urgent
Reason for Study: Tachycardia
EKG- Treatment ONCE
07/03/23 11:54
0.9% Sodium Chloride 1000 ml [Nss] 1,000 ml IV BOLUS
07/03/23 11:57
CR Chest Portable - 1 View Urgent
Comment:
Reason For Exam: SOB
Reason Study Needs to be Portable: Other
07/03/23 11:59
B-Hydroxybutyrate Urgent
Comment: ADD ON
Complete Blood Count/With Diff Urgent
Comprehensive Metabolic Panel Urgent
Lactic Acid Q4H
Comment: CANCEL 2nd LACTIC ACID IF 1st LACTIC ACID IS LESS THAN 2
NT-proBNP Urgent
Prothrombin Time Urgent
Troponin I Urgent
Blood Culture Q30M
ÁLVARO Source: Blood/Venous
Specimen Description:
07/03/23 12:21
Diltiazem HCl [Cardizem] 10 mg IV NOW STA
07/03/23 12:30
Diltiazem 125 mg/125 ml Nss [Cardizem] 125 mg in 125 ml IV PER PROTOCOL
Initial dose in mg/hr, then titrate:: 5
Titrate to keep:: Heart rate 80-100 bpm
Titrate by mg/hr:: 5 mg/hr
Frequency of titrations (minutes):: 15
Maximum dose in mg/hr:: 15
07/03/23 12:46
Arterial Blood Gas Urgent
%Oxygen/Room Air: unknown
07/03/23 12:58
CT Chest Pe Study Urgent
Comment:
Reason For Exam: hypoxia/tachycardia, lung CA
07/03/23 13:04
Add On- LAB Urgent
Tests Added?: beta hydroxybutyrate
07/03/23 13:11
0.9% Sodium Chloride 1000 ml [Nss] 1,000 ml IV BOLUS
07/03/23 13:42
Bedside Glucose- Treatment Q1H
07/03/23 13:43
Piperacillin/Tazo 3.375 Gram [Zosyn] 3.375 gram in 50 ml IV NOW
07/03/23 13:46
Electrocardiogram (*1) Urgent
Reason for Study: Other
Other Reason for Exam: rhythm change
07/03/23 13:47
EKG- Treatment ONCE
07/03/23 14:05
Basic Metabolic Panel Q2H
Blood Culture Q30M
ÁLVARO Source: Blood/Venous
Specimen Description:
07/03/23 14:09
Reg Insulin 100 Units/100 ml [Novolin R Insulin Infusion] 100 units in 100 ml IV NOW
07/03/23 15:45
Basic Metabolic Panel Q2H
07/03/23 16:00
Lactic Acid Q4H
Comment: CANCEL 2nd LACTIC ACID IF 1st LACTIC ACID IS LESS THAN 2
07/03/23 17:45
Basic Metabolic Panel Q2H
Abnormal Lab Results
07/03/23 07/03/23
11:59 12:46
WBC 14.9 H 10^3/uL
(4.8-10.8)
RDW 15.9 H %
(11.5-14.5)
Abs Immat Gran (auto) 0.1 H 10^3/uL
(0-0.05)
Absolute Neuts (auto) 12.5 H 10^3/uL
(1.4-6.5)
Absolute Monos (auto) 0.8 H 10^3/uL
(0.1-0.6)
Immature Gran % 0.7 H %
(0-0.5)
Neutrophils % 83.7 H %
(42.2-75.2)
Lymphocytes % 9.5 L %
(20.5-51.1)
PT 16.4 H Sec
(11.4-14.6)
pCO2 18 L* mmHg
(35-48)
HCO3 10.9 L* mmol/L
(21-28)
ABG O2 Sat (Measured) 99.4 H %
(94-98)
Sodium 127 L mmol/L
(135-145)
Chloride 97 L mmol/L
(98-107)
Carbon Dioxide 16 L mmol/L
(22-30)
BUN 24 H mg/dl
(9-20)
Glucose 419 H mg/dl
(70-99)
Lactic Acid 3.4 H mmol/L
(0.7-2.0)
Calcium 8.2 L mg/dl
(8.4-10.2)
Alkaline Phosphatase 137 H U/L
(38-126)
Troponin I 0.080 H* ng/ml
Total Protein 5.3 L g/dl
(6.3-8.2)
Albumin 2.4 L g/dl
(3.5-5.0)
B-Hydroxybutyrate 5.63 H mmol/L
(0.02-0.27)
07/03/23 11:59
Vital Signs
Initial and Last Documented VS:
Initial Vital Signs
Pulse Resp BP Pulse Ox
169 20 138/98 89
07/03/23 11:42 07/03/23 11:42 07/03/23 11:42 07/03/23 11:42
Last Documented Vital Signs
Temp Pulse Resp BP Pulse Ox
97.7 F 108 28 131/90 96
07/03/23 11:44 07/03/23 14:00 07/03/23 14:00 07/03/23 14:00 07/03/23 14:00
MDM/Problems Addressed
MDM/Problems Addressed:
Patient's clinical presentation is complicated as it is multifactorial. On arrival he is in visible respiratory distress with rapid atrial fibrillation, initial concern for pulmonary embolism given that his Eliquis was discontinued recently.
Additionally we are unable to get reliable pulse oximetry secondary to blood gas was obtained that does show good oxygenation on the room air however compensated metabolic acidosis. PE study ultimately was unremarkable. Patient's elevated troponin
is likely related to the basis of rapid A-fib. Overall I suspect patient is developing given his compensated acidosis with pH not officially in DKA, nevertheless given the mild anion gap and started on insulin drip and given IV fluids for
resuscitation measures. Will admit for further management
Comment
Comment:
Initial EKG independently interpreted by me at 11:45 AM shows a rapid atrial flutter at a rate of [address] depressions suggestive of subendocardial ischemia
Repeat EKG independently interpreted by me at 1348 after EKG changes on telemetry shows sinus tachycardia at a rate of [address] changes concerning for ischemia
*Critical Care Note
Total Time (30-74mins, 75-104mins- exclusive of procedures): 45 minutes
comment:
Critical care time: 45 minutes
Critical care time was exclusive of: Separately billable procedures, treating other patients, and teaching time
Critical care was necessary to treat or prevent imminent or life-threatening deterioration of the following conditions: Rapid atrial fibrillation, hyperglycemia, compensated metabolic acidosis
Critical care time spent personally by me on the following activities:
[x] Review of old charts
[x] Obtaining history from patient or surrogate
[x] Ordering and review of the laboratory studies
[x] Ordering and review of radiographic studies
[x] Ordering and performing treatments and interventions
[x] Patient patient's response to treatment
[x] Development of treatment plan with patient or surrogate
Update Note
Update Note:
07/03/2023 1345 PM: Patient noted to convert to normal sinus rhythm, remains mildly tachycardic at a rate of 108. Will discontinue diltiazem drip
ED Attending Note
-
Portions of this chart may have been created with voice recognition software.� Occasional wrong word or��sound alike� substitutions may have occurred due to the inherent limitations of voice recognition software.
Discharge Plan
Departure
Patient Disposition: Admit
Date of Disposition: 07/03/23
Time of Disposition: 14:09
Admit to: Telemetry
Presentation/result/management discussed w/ accepting MD/DO: Hospitalist
Discharge Problem:
Acute hyperglycemia, Compensated metabolic acidosis, Atrial fibrillation with RVR
Prescriptions:
No Action
metformin 500 MG tablet
1,000 mg PO BID
trazodone 100 MG tablet
200 mg PO HS
escitalopram oxalate 20 mg Tablet
20 mg PO DAILY
cyclobenzaprine 10 mg Tablet
10 mg PO DAILY AT 0700
gabapentin 600 mg Tablet
1,200 mg PO HS
cetirizine 10 mg Tablet
10 mg PO DAILY
pravastatin 40 mg Tablet
40 mg PO HS
meloxicam 15 mg Tablet
15 mg PO DAILY
amlodipine 5 mg Tablet
7.5 mg PO DAILY
aspirin 81 mg Tablet,Delayed Release (Dr/Ec)
81 mg PO DAILY
gemfibrozil 600 mg Tablet
600 mg PO DAILY
gabapentin 300 mg Capsule
600 mg PO BID@0800,1700
omeprazole 20 mg Capsule,Delayed Release(Dr/Ec)
20 mg PO DAILY
metoprolol tartrate 25 mg Tablet
25 mg PO BID
Referrals:
Tamanna Schmitt MD [Family Provider] -
Interventions
Interventions:
ED- Cardiac Assessment Last Done: 07/03/23 14:00
ED- Pulmonary Assessment Last Done: 07/03/23 11:53
[2023-07-03] MEDS: NSS 1000 IV ×2 (12:04→13:32)
[2023-07-03 12:19] LABS: % Basophils 0.3 % (0-2); % Eosinophils 0.7 % (0-6); % Immature Granulocytes 0.7 % (0-0.5); % Lymphocytes 9.5 % (20.5-51.1); % Monocytes 5.1 % (1.7-9.3); % Neutrophils 83.7 % (42.2-75.2); Absolute Basophils 0.1 10^3/uL (0-0.2); Absolute Eosinophils 0.1 10^3/uL (0-0.7); Absolute Immature Granulocytes 0.1 10^3/uL (0-0.05); Absolute Lymphocytes 1.4 10^3/uL (1.2-3.4); Absolute Monocytes 0.8 10^3/uL (0.1-0.6); Absolute Neutrophils 12.5 10^3/uL (1.4-6.5); Hematocrit 43.3 % (39.0-52.0); Hemoglobin 14.8 g/dL (13.0-18.0); Mean Corp Hgb Conc. 34.2 g/dL (33.0-37.0); Mean Corpuscular Hgb 29.4 pg (27.0-31.0); Mean Corpuscular Volume 86.1 fL (80.0-94.0); Mean Platelet Volume 9.6 fL (7.4-10.4); Nucleated Red Blood Cells % 0 % (-); Platelet Count 295 10^3/uL (130-400); Red Blood Cell Count 5.03 10^6/uL (4.70-6.10); Red Cell Dist. Width 15.9 % (11.5-14.5); White Blood Cell Count 14.9 10^3/uL (4.8-10.8)
[2023-07-03 12:29] LABS: INR 1.34; PT 16.4 Sec (11.4-14.6)
[2023-07-03 12:32] LABS: ALT (SGPT) 26 U/L (0-50); AST (SGOT) 25 U/L (17-59); Albumin 2.4 g/dl (3.5-5.0); Alkaline Phosphatase 137 U/L (38-126); Blood Urea Nitrogen 24 mg/dl (9-20); Calcium 8.2 mg/dl (8.4-10.2); Carbon Dioxide 16 mmol/L (22-30); Chloride 97 mmol/L (98-107); Estimated Creatinine Clearance 60 ml/min; Glucose 419 mg/dl (70-99); Lactic Acid 3.4 mmol/L (0.7-2.0); Potassium 5.1 mmol/L (3.5-5.1); Sodium 127 mmol/L (135-145); Total Bilirubin 0.5 mg/dl (0.2-1.3); Total Protein 5.3 g/dl (6.3-8.2); eGFR > 60.00
--- NOTE | 2023-07-03 12:35 | PHANOTE ---
Medication list generated from [facility]'s [] discharge med list dated 06/24/23. Patient stated that he has an insulin pump but that is currently not working so he has not been using it. He stated that he has not been injecting insulin from a pen or
vial.
Discrepancies were noted from [facility] med list updated 06/16/23. Pregabalin dose noted on is 25mg BID; however, PDMP notes that pt has been dispensed pregabalin 100mg capsules. Other meds listed in eCW but not on med list include: amlodipine 7.5mg
daily, aspirin 81mg daily, cetirizine 10mg daily, gabapentin 500mg BID and 1000mg HS, cyclobenzaprine 10mg daily.
[2023-07-03] MEDS: CARDIZEM 10 MG IV (12:39)
[2023-07-03 12:46] LABS: NT-proBNP 5300 pg/ml
[2023-07-03] MEDS: CARDIZEM 125 IV (12:47)
[2023-07-03 12:58] LABS: B.E. -11.4 mmol/L; O2 Saturation % 99.4 % (94-98); PO2 103 mmHg (83-108); pH 7.39 (7.35-7.45)
[2023-07-03 13:01] LABS: HCO3 10.9 mmol/L (21-28); PCO2 18 mmHg (35-48)
[2023-07-03 13:56] LABS: B-Hydroxybutyrate 5.63 mmol/L (0.02-0.27)
[2023-07-03] MEDS: ZOSYN 50 IV (14:07)
--- NOTE | 2023-07-03 14:10 | HPS.HSE ---
Addendum entered and electronically signed by Maximo Saeed MD 07/03/23 15:34:
Seen and examined by me independently in collaboration with the nurse practitioner Merline.
Past medical history/social history/medication/allergies reviewed.
Lab data and imaging data reviewed.
Presents with palpitation shortness of breath and weakness.
Patient insulin pump has been not working for a week and he did not choose an alternative for his diabetes mellitus treatments. He has been without any treatments for a week now. He is diabetic for many years and has been using pump for the last
15 years. He got a new machine of the same brand 3 weeks ago. In the last week it was not working because of calibration issues apparently. Now is in DKA. Started on insulin IV DKA protocol follow labs. Consult diabetic nurse practitioner who
look into his machine issues.
He was noted to be in A-fib which converted spontaneously. Patient no family is available to diagnose of A-fib. It has been mention in his prior records. He was on anticoagulation which was discontinued by his oncologist because of hemorrhagic
left pleural effusion. He is not sure why he was on anticoagulation. Denies prior history of blood clots.
Metastatic adenocarcinoma of the lung and a recurrent pleural effusion. Now has a left Pleurx catheter. Its drained every 3 days. Last 1 yesterday was 500 mL. Hemorrhagic. Today was feeling short of breath despite the drainage of pleural
effusion yesterday. Chest CT shows no PE but has left lower lobe consolidation which is again identified. Decrease left pleural effusion since Pleurx catheter placement. There is slight prominence of interstitial marking of the left leg and
cannot exclude lymphangitic spread of tumor.
Trace lower extremity edema but no JVD. He does have increased BNP compared to before. Rule out heart failure. Cannot take weight into consideration as he has been losing weight from his cancer.
Consult cardiology for A-fib and possible CHF.
Be cautious with IV fluids for DKA treatments with above issue.
Pt wishes to be full code
Original Note:
Family Physician
-
Family Physician: Tamanna D. Schmitt
Chief Complaint
-
sob
palpitation
History of Present Illness
72 year old with PMH for paroxysmal A-fib, coronary artery disease, prostate cancer adenocarcinoma of the lung, hypertension, hyperlipidemia, type 2 diabetes presented to us with short of breath which is worse with exertion, palpitation. As per
, he has been weak for past few days. Patient not getting any insulin for 1 week due to the malfunction of the insulin pump. Patient denied any headache, dizziness, syncope. Patient denied fever, chills, chest pain. Denied abdominal pain,
nausea, vomiting. Stated chronic diarrhea. Stated poor appetite denied dysuria hematuria.
On arrival noted hyperglycemia. Patient was also noted in A-fib with RVR which spontaneously corrected to normal sinus rhythm at present tacky. Patient initiated on insulin drip. Admitting for further management
Medical History
Past Medical History
Past Medical History: Reports Other
Additional Past Medical History:
Paroxysmal A-fib
Type 2 diabetes on insulin pump
Hypertension-hyperlipidemia
Prostate cancer 6
Adenocarcinoma of the lung
Past Surgical History: Reports Other
Additional Past Surgical History:
Prostatectomy
Coronary artery bypass graft
Urethral cuff
Social History
Tobacco: Non-smoker
Alcohol: None
Drug: None
Personal:
Living: With Family
Family History
Family History: Not pertinent
Allergies / Home Medications
Allergies reflects when Allergies were last updated in [facility].
Home Medications with original date entered in [facility]
Allergy/Medication List:
Allergies
Allergy/AdvReac Type Severity Reaction Status Date / Time
house dust mite Allergy Itching Verified 06/07/23 12:49
lisinopril Allergy COUGH Verified 06/07/23 12:49
pentazocine [From Talwin] Allergy PARALYZED Verified 06/07/23 12:49
Home Medications
metformin 500 mg tablet 1,000 mg PO BID Diabetes 06/12/20
trazodone 100 mg tablet 200 mg PO HS Mental Health/Anxiety 08/31/21
amlodipine 5 mg tablet 7.5 mg PO DAILY blood pressure 07/03/23
aspirin 81 mg tablet,delayed release 81 mg PO DAILY Blood Clot Prevention/Tx 07/03/23
cetirizine 10 mg tablet 10 mg PO DAILY Allergies 07/03/23
cyclobenzaprine 10 mg tablet 10 mg PO DAILY AT 0700 Muscle Spasms 07/03/23
escitalopram oxalate 20 mg tablet 20 mg PO DAILY depression/anxiety 07/03/23
gabapentin 300 mg capsule 600 mg PO BID@0800,1700 pain 07/03/23
gabapentin 600 mg tablet 1,200 mg PO HS pain 07/03/23
gemfibrozil 600 mg tablet 600 mg PO DAILY High Cholesterol 07/03/23
meloxicam 15 mg tablet 15 mg PO DAILY pain 07/03/23
metoprolol tartrate 25 mg tablet 25 mg PO BID Blood Pressure 07/03/23
omeprazole 20 mg capsule,delayed release 20 mg PO DAILY Gastrointestinal Issue 07/03/23
pravastatin 40 mg tablet 40 mg PO HS high cholesterol 07/03/23
Review of Systems
-
Constitutional: Reports No Symptoms
EENT: Reports No Symptoms
Respiratory: Reports Trouble Breathing
Cardiac: Reports No Symptoms and Palpitations
Abdomen/GI: Reports No Symptoms
: Reports No Symptoms
Musculoskeletal: Reports No Symptoms
Skin: Reports No Symptoms
Neurological: Reports Weakness
Endocrine: Reports No Symptoms
Hematologic/Lymphatic: Reports No Symptoms
Psych: Reports No Symptoms
Physical Exam
Vital Signs
Vital Signs
Temp Pulse Resp BP Pulse Ox
97.7 F 108 29 128/77 97
07/03/23 11:44 07/03/23 13:45 07/03/23 13:45 07/03/23 13:45 07/03/23 12:07
Physical Exam
General: Well Developed, Well Nourished and No Apparent Distress
HEENT: NormoCephalic, Moist mucous membranes and Atraumatic
Respiratory: Clear and Decreased Breath Sounds
Cardiac: S1/S2 and Regular Rhythm; No Murmur or Rub
GI: Soft, Non Tender, Non Distended and Normal Bowel Sounds; No Organomegaly
Rectal: Deferred by Provider
Musculoskeletal: No Clubbing, No Cyanosis and No Edema
Skin: No Rash
Neuro: AO x 3 and Nonfocal/grossly intact
Psych: Calm
Laboratory Results
-
07/03/23 11:59
Laboratory Results
PT 16.4 Sec (11.4-14.6) H 07/03/23 11:59
INR 1.34 07/03/23 11:59
pH 7.39 (7.35-7.45) 07/03/23 12:46
pCO2 18 mmHg (35-48) L* 07/03/23 12:46
pO2 103 mmHg (83-108) 07/03/23 12:46
HCO3 10.9 mmol/L (21-28) L* 07/03/23 12:46
Lactic Acid 3.4 mmol/L (0.7-2.0) H 07/03/23 11:59
Total Bilirubin 0.5 mg/dl (0.2-1.3) 07/03/23 11:59
AST 25 U/L (17-59) 07/03/23 11:59
ALT 26 U/L (0-50) 07/03/23 11:59
Alkaline Phosphatase 137 U/L (38-126) H 07/03/23 11:59
Troponin I 0.080 ng/ml H* 07/03/23 11:59
Data Reviewed
-
Diagnostic Radiology: Report Reviewed by me
CT Scan: Report Reviewed by me
Lab Data: Labs Reviewed by me
Impression/Plan
-
# Rapid A-fib on arrival
-Converted spontaneously
-Cardizem drip DC'd
-Continue to monitor heart rate
-EKG on arrival with a flutter with variable AV block, incomplete right bundle branch block, nonspecific ST and T wave abnormality
-Repeat EKG with sinus tachycardia, incomplete right bundle branch block
-Metoprolol continued twice a day
-Cardiology consulted
# Hyperglycemia secondary to diabetic ketoacidosis
-CO2 16, lactate 3.4, blood sugar 419, B hydroxybutyrate is 5.63
-Insulin drip continued
-Blood sugar every 2 hours
-hold metformin
-Diabetic ESCORT SERVICE ATTENDANT consulted
# Elevated Trop likely demand ischemia
-Trop 0.080
-Trend troponin
-No complaints of chest pain
#acute hypoxic respiratory failure likely new CHF
-Patient requiring 3 L of oxygen
-chest CT with No evidence of central pulmonary embolism.Patient with history of left lung carcinoma with left lower lobe consolidation again identified. Placement of percutaneous left pleural catheter in the interval since recent prior study CT
(with accompanying air likely related to the catheter) with overall small volume decreased left pleural effusion. Cannot exclude some accompanying left pleural thickening.Slightly prominent pulmonary interstitial markings in the left lung, cannot
exclude some lymphangitic spread of tumor.Marked widespread bony metastatic disease again seen.
-chest x ray with Patient with known left lung malignancy again seen to contain opacification in the left chest at least in part representing pleural effusion and/or pleural thickening perhaps slightly increased in comparison to recent prior study.
-BNP 5300
-Continue supplemental oxygen to keep sat greater than 92
-Wean as tolerated
-hold diuretics until evaluated by cardiology
# hyponatremia likely pseudo
-corrected sodium 135
-ctm
# Leukocytosis likely stress reaction
-WBC 14.9
-Afebrile
-Obtain UA
-Blood culture sent from ER
-Continue to monitor
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
# History of left lower lobe PE August 2021
# History of prostate cancer status post prostatectomy
# Coronary disease with history of CABG
Aspirin, metoprolol
# Hyperlipidemia-continue gemfibrozil, pravastatin
# Hypertension-on Norvasc, metoprolol
# History of E. coli and Klebsiella bacteremia secondary to cholangitis
# Depression-Lexapro, trazodone
# GERD-PPI
# Ex-smoker
# DVT prophylaxis-
lovenox
--- NOTE | 2023-07-03 14:39 | PHANOTE ---
arrived in ED with home medication list. Patient self-administers all medications; he reviewed list that provided and stated that these are the medications that he is currently taking at home. He stated that he has not taken all
medications for at least 2 days.
[2023-07-03 14:49] LABS: Blood Urea Nitrogen 23 mg/dl (9-20); Calcium 7.4 mg/dl (8.4-10.2); Carbon Dioxide 14 mmol/L (22-30); Chloride 100 mmol/L (98-107); Estimated Creatinine Clearance 66 ml/min; Glucose 381 mg/dl (70-99); Sodium 126 mmol/L (135-145); eGFR > 60.00
[2023-07-03] MEDS: NOVOLIN R INSULIN INFUSION 100 IV (14:51)
--- NOTE | 2023-07-03 15:54 | PN.DE.MGMTRT ---
Insulin Management
- -
07/03/2023: Insulin Pump Management Consult
72 year old male admitted with DKA, GAP of 12, glucose 419, Cr 1.0 eGFR >60 on admission. Pt well known to Diabetes team from previous hosp admissions.
PMH: ASCVD, HTN, HCL, prostate CA, diabetes. Was using Tandem Tslim X2 insulin pump with DexCom G6 CGM up until a week ago when his pump malfunctioned and Pt stopped taking his insulin. A1C was 8.7% on 06/08/23.
Insulin pump currently unavailable. Glucose on admission was 419, CO2 16, lactate 3.4, B hydroxybutyrate is 5.63
Pt received 10 units Reg insulin @14:51.
Pt seen in ED, and Dtr at bedside. Pt awake, A/O x3, pleasant, offers no complaints. Able to participate in discussion regarding diabetes management while in the hosp. Recent point of care 381, pt has been started on DKA protocol with insulin
drip.
Serial BMPs, Accuchek Q2 hrs, Blood sugar every 2 hours. HOLD Metformin
will go home and bring Pt's home insulin, pump supplies in pump to be charged here.
Plan is to use SQ insulin up on transition from drip and pt will be seen by diabetes team on Thursday to assist with resuming pump use.
Diabetes History
- -
Type of Diabetes: 2 requiring insulin
Pre-Admission Diabetes Regimen
07/03/23 07/03/23
11:59 14:05
Creatinine 1.1 1.0
Insulin Pump Settings
IP Diabetes Regimen
07/03/23 07/03/23
11:59 14:05
Glucose 419 H 381 H
Patient Education
[2023-07-03 16:05] LABS: Glucose - Point of Care 324 mg/dl (70-99)
--- NOTE | 2023-07-03 16:17 | CON.CAR ---
Addendum entered and electronically signed by Scott Mcdonald DO 07/03/23 17:38:
I saw and examined the patient.
The Behavioral Instructor's note was reviewed and I agree with the note.
Comment:
Very pleasant 69-year-old male with past medical history significant for stage IV adenocarcinoma of the lung with bony metastases, CAD status post CABG x 4, paroxysmal atrial fibrillation, diabetes mellitus type 2 who presented with shortness of
breath found to be in DKA and A-fib with rapid ventricular response with spontaneous return to sinus rhythm. Underwent left Pleurx catheter placement 1 week ago fluid drainage was noted to be hemorrhagic and therefore his Eliquis stopped due to
this. Patient reporting lower extremity swelling, shortness of breath, weight loss, poor appetite denies any chest pain orthopnea or PND. Telemetry demonstrates sinus tachycardia; initial EKG A-fib RVR, repeat EKG sinus tach incomplete right
bundle branch block
General:�No Apparent Distress and Other (appears frail, cachectic)
HEENT:�Normocephalic, Anicteric and Moist Mucous Membranes
Respiratory:�Non Labored Respirations and Other (decreased BS at bases)
Cardiac:�S1/S2 and Regular Rhythm
GI:�Soft and Non Distended
Musculoskeletal:�No Clubbing, No Cyanosis and Edema (1+ edema of B/L LE)
Skin:�Warm and Dry
Neuro:�AO x 3
..
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 Fish in office 06/2020
Primary Oncologist: Dr. Morgan of [facility]
Assessment:
Presentation with SOB
DKA
Leukocytosis
Acute hypoxic respiratory failure
Concern for component of acute CHF
Paroxysmal atrial fibrillation with RVR, spontaneously converted to SR 07/03/23
Bilateral pulmonary vein RF ablations at time of CABG 06/2020
s/p MANISH Atricure clip closure 06/15/20
Chronic Eliquis OAC, recently stopped due to hemorrhagic drainage from pleurxSinus tachycardia
Elevated troponin, suspected nonMI trop elevation
Pseudohyponatremia
Hypoalbuminemia
Stage 4 adenocarcinoma of lung, mets to bone, followed at [facility]
Recurrent L pleural effusion, exudative in nature 12/14/2022, s/p pleurx catheter placement 06/2023
History of right-sided pleural effusion requiring thoracentesis
CAD
s/p CABG x 4 with HAMMOND-mid LAD; SVG seq - RPD, intramyocardial RI; SVG - D2 06/2020IDDM w/ insulin pump
HTN
Hyperlipidemia
Small left lower lobe pulmonary embolism in 08/2021
hx prostate CA s/p prostatectomy
Peripheral neuropathy
ECHO 12/17/2022: EF 54%, mild MR, sclerotic aortic valve without stenosis, mild to moderate TR, PAP 37 mmHg, pleural effusion present
TTE 07/03/2023: EF at bedside during echo study appears to be normal awaiting final report
Plan:
-Patient presents with shortness of breath.� In DKA on arrival due to a pump issue.� Also was in rapid A-fib on arrival, spontaneously converted to sinus rhythm while still in ER
-Cardiology consulted due to concern for component of acute CHF as etiology of shortness of breath.� proBNP elevated at 5500.� Chest x-ray with left lung malignancy and left pleural effusion noted.� Chest CT without PE, pleurx catheter noted on left
with small volume decrease left pleural effusion, pulmonary interstitial markings in left lung with lymphangitic spread of tumor not able to be excluded, and marked widespread bony metastatic disease. SOB could also be related to malignancy/known
exudative pleural effusion. also with hypoalbuminemia which could explain LE edema
-wean supp O2 as able
-For now would treat DKA.� consider for trial of gentle IV diuresis in AM and assess response. Not on diuretic prior to admission; treat underlying causes likely related to atrial fibrillation
-Last echo from 12/2022 with results as above.� Will repeat follow-up study to reevaluate EF
-Fortunately converted spontaneously to sinus rhythm in the ER.� Continue outpatient lopressor� Eliquis was discontinued earlier this week with hemorrhagic drainage from Pleurx.� Of note he does have left atrial appendage clip from 2020, continue to
hold Eliquis for now
-Troponin elevated at 0.08.� No chest pain.� Suspected non-CT troponin elevation.� Trend to peak.� EKGs without evidence of acute ischemic changes. continue asa, statin
-Prognosis appears poor.� He is noted to be a full code.� He is scheduled for follow-up appointment with his oncologist on 07/06/2023 at 2 PM, and patient/family would like to make this appointment if possible. Recommend strongly for goals
of care discussion by primary team
-Discussed with patient and family at bedside
Original Note:
Consultation
Consultation Request
Date/Time Consultation Performed: 07/03/23
Requesting Provider: Dr. Saeed
Performing Provider: Chandrika Cronin PA-C for Dr. Mcdonald
Reason for Consultation: ? CHF
Medical History
-
Chief Complaint: SOB
History of Present Illness:
Patient is a 72-year-old male with past medical history of stage IV adenocarcinoma of the lung, CAD status post CABG x 4, paroxysmal atrial fibrillation, DM2 who presents to [facility] for evaluation of shortness of breath. He also states
that his new insulin pump which he got 3 weeks ago has not been working for a week, and has gone without treatment of blood sugars. He is noted to be in DKA. On arrival was also noted to be in A-fib with rapid ventricular response which
fortunately spontaneously converted. He also relays he underwent left Pleurx catheter placement 1 week ago. He has visiting nurses who have been draining the fluid and noticed that it was hemorrhagic. 3 days ago his Eliquis was stopped due to
this. He reports despite Pleurx draining, still with worsening shortness of breath. He also reports lower extremity edema. He reports weight loss and poor appetite. He denies orthopnea or chest pain. He follows with Dr. Morgan at [facility]'
and is scheduled for an appointment on Thursday at 2 PM. He previously was on a chemotherapy pill, however then began experiencing the issues with fluid accumulation, and this was stopped approximately 2 months ago. proBNP 5500.
PMH:
Stage 4 adenocarcinoma of lung
Recurrent L pleural effusion, Exudative in nature 12/14/2022, s/p pleurx catheter placement 06/2023
History of right-sided pleural effusion requiring thoracentesis
CAD
s/p CABG x 4 with HAMMOND-mid LAD; SVG seq - RPD, intramyocardial RI; SVG - D2 06/2020
Paroxysmal Atrial fibrillation
Bilateral pulmonary vein RF ablations at time of CABG 06/2020
s/p MANISH Atricure clip closure 06/15/20
Chronic Eliquis OAC, recently stopped due to hemorrhagic drainage from pleurx
IDDM w/ insulin pump
HTN
Hyperlipidemia
Small left lower lobe pulmonary embolism in 08/2021
hx prostate CA s/p prostatectomy
Peripheral neuropathy
Past Medical History
Past Medical History: Other (in HPI)
Social History
Tobacco: Non-Smoker
Alcohol: None
Personal:
Living: With Family
Employment: Retired
Family History
Family History: Diabetes
Allergies / Home Medications
Allergy/AdvReac Type Severity Reaction Status Date / Time
house dust mite Allergy Itching Verified 06/07/23 12:49
lisinopril Allergy COUGH Verified 06/07/23 12:49
pentazocine [From Talwin] Allergy PARALYZED Verified 06/07/23 12:49
Medication Instructions Recorded Confirmed Type
metformin 500 mg tablet 1,000 mg PO BID Diabetes 06/12/20 07/03/23 History
trazodone 100 mg tablet 200 mg PO HS Mental Health/Anxiety 08/31/21 07/03/23 History
amlodipine 5 mg tablet 7.5 mg PO DAILY blood pressure 07/03/23 07/03/23 History
aspirin 81 mg tablet,delayed 81 mg PO DAILY Blood Clot 07/03/23 07/03/23 History
release Prevention/Tx
cetirizine 10 mg tablet 10 mg PO DAILY Allergies 07/03/23 07/03/23 History
cyclobenzaprine 10 mg tablet 10 mg PO DAILY AT 0700 Muscle 07/03/23 07/03/23 History
Spasms
escitalopram oxalate 20 mg tablet 20 mg PO DAILY depression/anxiety 07/03/23 07/03/23 History
gabapentin 300 mg capsule 600 mg PO BID@0800,1700 pain 07/03/23 07/03/23 History
gabapentin 600 mg tablet 1,200 mg PO HS pain 07/03/23 07/03/23 History
gemfibrozil 600 mg tablet 600 mg PO DAILY High Cholesterol 07/03/23 07/03/23 History
meloxicam 15 mg tablet 15 mg PO DAILY pain 07/03/23 07/03/23 History
metoprolol tartrate 25 mg tablet 25 mg PO BID Blood Pressure 07/03/23 07/03/23 History
omeprazole 20 mg capsule,delayed 20 mg PO DAILY Gastrointestinal 07/03/23 07/03/23 History
release Issue
pravastatin 40 mg tablet 40 mg PO HS high cholesterol 07/03/23 07/03/23 History
Review of Systems
-
History Source: Patient and Family
All other systems: Negative unless noted
Physical Exam
Vital Signs
Temp Pulse Resp BP Pulse Ox
97.7 F 114 26 141/87 96
07/03/23 11:44 07/03/23 15:30 07/03/23 15:30 07/03/23 15:30 07/03/23 15:30
Lab Results
07/03/23 11:59
Troponin I 0.080 ng/ml H* 07/03/23 11:59
Yty-W-Szqqysoarex Pept 5300 pg/ml 07/03/23 11:59
Physical Exam
General: No Apparent Distress and Other (appears frail, cachectic)
HEENT: Normocephalic, Anicteric and Moist Mucous Membranes
Respiratory: Non Labored Respirations and Other (decreased BS at bases)
Cardiac: S1/S2 and Regular Rhythm
GI: Soft and Non Distended
Musculoskeletal: No Clubbing, No Cyanosis and Edema (1+ edema of B/L LE)
Skin: Warm and Dry
Neuro: AO x 3
Impression / Plan
-
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 Fish in office 06/2020
Primary Oncologist: Dr. Morgan of [facility]
Assessment:
Presentation with SOB
DKA
Leukocytosis
Acute hypoxic respiratory failure
Concern for component of acute CHF
Paroxysmal atrial fibrillation with RVR, spontaneously converted to SR 07/03/23
Bilateral pulmonary vein RF ablations at time of CABG 06/2020
s/p MANISH Atricure clip closure 06/15/20
Chronic Eliquis OAC, recently stopped due to hemorrhagic drainage from pleurx
Sinus tachycardia
Elevated troponin, suspected nonMI trop elevation
Pseudohyponatremia
Hypoalbuminemia
Stage 4 adenocarcinoma of lung, mets to bone, followed at [facility]
Recurrent L pleural effusion, exudative in nature 12/14/2022, s/p pleurx catheter placement 06/2023
History of right-sided pleural effusion requiring thoracentesis
CAD
s/p CABG x 4 with HAMMOND-mid LAD; SVG seq - RPD, intramyocardial RI; SVG - D2 06/2020
IDDM w/ insulin pump
HTN
Hyperlipidemia
Small left lower lobe pulmonary embolism in 08/2021
hx prostate CA s/p prostatectomy
Peripheral neuropathy
ECHO 12/17/2022: EF 54%, mild MR, sclerotic aortic valve without stenosis, mild to moderate TR, PAP 37 mmHg, pleural effusion present
Plan:
-Patient presents with shortness of breath. In DKA on arrival due to a pump issue. Also was in rapid A-fib on arrival, spontaneously converted to sinus rhythm while still in ER
-Cardiology consulted due to concern for component of acute CHF as etiology of shortness of breath. proBNP elevated at 5500. Chest x-ray with left lung malignancy and left pleural effusion noted. Chest CT without PE, pleurx catheter noted on left
with small volume decrease left pleural effusion, pulmonary interstitial markings in left lung with lymphangitic spread of tumor not able to be excluded, and marked widespread bony metastatic disease. SOB could also be related to malignancy/known
exudative pleural effusion. also with hypoalbuminemia which could explain LE edema
-wean supp O2 as able
-For now would treat DKA. consider for trial of gentle IV diuresis in AM and assess response. Not on diuretic prior to admission
-Last echo from 12/2022 with results as above. Will repeat follow-up study to reevaluate EF
-Fortunately converted spontaneously to sinus rhythm in the ER. Continue outpatient lopressor Eliquis was discontinued earlier this week with hemorrhagic drainage from Pleurx. Of note he does have left atrial appendage clip from 2020
-Troponin elevated at 0.08. No chest pain. Suspected non-CT troponin elevation. Trend to peak. EKGs without evidence of acute ischemic changes. continue asa, statin
-Prognosis appears poor. He is noted to be a full code. He is scheduled for follow-up appointment with his oncologist on 07/06/2023 at 2 PM, and patient/family would like to make this appointment if possible
-Discussed with patient and family at bedside
Data Reviewed
-
EKG: Tracing Personally Visualized and interpreted
Radiology: Report Reviewed by me
CT Scan: Report Reviewed by me
Medical Tests (Nuc Med, Echo etc): Report Reviewed by me
Labs: Labs Reviewed by me
Old Records: Reviewed
[2023-07-03 16:32] LABS: Lactic Acid 2.2 mmol/L (0.7-2.0)
[2023-07-03 17:30] LABS: Glucose - Point of Care 288 mg/dl (70-99)
--- NOTE | 2023-07-03 17:30 | PTCARENOTE ---
Received patient from ED on stretcher. Patient able to use standing scale and ambulate to bed with assistance x1. Patient arrived to unit with regular insulin drip infusing via left ac site at 7 units an hour. First blood sugar on arrival 288. ST
on monitor, heart rate 100-110's. Vital signs stable,afebrile. Sp02 96% on room air. Patient in room at bedside. Oriented patient to room.
[2023-07-03] MEDS: LOVENOX SC ×2 (17:45→18:31)
[2023-07-03] MEDS: NEURONTIN 600 MG PO (17:45)
--- NOTE | 2023-07-03 17:54 | VATNOTE ---
attempted to restart IV but unsuccessful x3 since pt has pre-hospital line in left ac. another VAT RN to attempt.
[2023-07-03 18:39] LABS: Glucose - Point of Care 351 mg/dl (70-99)
[2023-07-03 19:19] LABS: Glucose - Point of Care 249 mg/dl (70-99)
[2023-07-03 19:58] LABS: Lactic Acid 3.5 mmol/L (0.7-2.0)
[2023-07-03 20:05] LABS: Blood Urea Nitrogen 22 mg/dl (9-20); Calcium 7.6 mg/dl (8.4-10.2); Carbon Dioxide 19 mmol/L (22-30); Chloride 103 mmol/L (98-107); Estimated Creatinine Clearance 72 ml/min; Glucose 224 mg/dl (70-99); Potassium 4.2 mmol/L (3.5-5.1); Sodium 128 mmol/L (135-145); eGFR > 60.00
[2023-07-03 20:15] LABS: Troponin I 0.061 ng/ml
[2023-07-03 20:23] LABS: Glucose - Point of Care 311 mg/dl (70-99)
[2023-07-03] MEDS: LOPRESSOR 25 MG PO (20:42)
[2023-07-03] MEDS: NEURONTIN 1200 MG PO (21:08)
[2023-07-03] MEDS: PRAVACHOL 40 MG PO (21:08)
[2023-07-03] MEDS: DESYREL 200 MG PO (21:08)
[2023-07-03 21:17] LABS: Glucose - Point of Care 207 mg/dl (70-99)
[2023-07-03 22:30] LABS: Glucose - Point of Care 206 mg/dl (70-99)
[2023-07-03 23:21] LABS: Glucose - Point of Care 147 mg/dl (70-99)
[2023-07-03] MEDS: D5/0.45%NACL 1000 IV (23:35)
[2023-07-03 23:50] LABS: Blood Urea Nitrogen 20 mg/dl (9-20); Calcium 7.7 mg/dl (8.4-10.2); Carbon Dioxide 21 mmol/L (22-30); Chloride 103 mmol/L (98-107); Estimated Creatinine Clearance 72 ml/min; Glucose 150 mg/dl (70-99); Potassium 3.9 mmol/L (3.5-5.1); Sodium 129 mmol/L (135-145); eGFR > 60.00
[2023-07-04] VITALS (15 sets, daily range): BP systolic 87–132; BP diastolic 58–93; PULSE 105; O2SAT 97; BMI 21.6
[2023-07-04 00:04] LABS: Troponin I 0.066 ng/ml
[2023-07-04 00:31] LABS: Glucose - Point of Care 170 mg/dl (70-99)
[2023-07-04 01:27] LABS: Glucose - Point of Care 203 mg/dl (70-99)
[2023-07-04] MEDS: LANTUS 0.149999999999999994 UNITS SC (01:36)
--- NOTE | 2023-07-04 01:50 | PTCARENOTE ---
Provider notified of lab values, insulin gtt off, Lantus given as ordered.
--- NOTE | 2023-07-04 02:12 | W.PN.UPDATE ---
Update Note
Progress Note Update
1869 Johnathon Baxter, here with DKA, on Insulin drip, BS was dropping to 205 207, ordered for D5 1/2 at 40cc/hr (hx of Metastatic adenocarcinoma of the lung and a recurrent pleural effusion). His BS now is 170.on lab 150. BMP is ordered Q2 hours. lactic
acid 3.0, was 3.5. Na 129, cl 103 K 3.9, Co2 21, BUN 20. (anion gap 5)Will add Lantus 15u, stop the insulin drip in 20 minutes and start the sliding scale q6h. BMP Q4 hrs, Lactic acid Q4hrs.
[2023-07-04 05:33] LABS: Hematocrit 38.1 % (39.0-52.0); Hemoglobin 13.2 g/dL (13.0-18.0); Mean Corp Hgb Conc. 34.6 g/dL (33.0-37.0); Mean Corpuscular Volume 83.7 fL (80.0-94.0); Mean Platelet Volume 9.1 fL (7.4-10.4); Platelet Count 238 10^3/uL (130-400); Red Blood Cell Count 4.55 10^6/uL (4.70-6.10); Red Cell Dist. Width 15.8 % (11.5-14.5); White Blood Cell Count 11.7 10^3/uL (4.8-10.8)
[2023-07-04 05:56] LABS: Lactic Acid 1.7 mmol/L (0.7-2.0)
[2023-07-04 05:57] LABS: Blood Urea Nitrogen 17 mg/dl (9-20); Calcium 7.8 mg/dl (8.4-10.2); Carbon Dioxide 20 mmol/L (22-30); Chloride 103 mmol/L (98-107); Estimated Creatinine Clearance 81 ml/min; Glucose 224 mg/dl (70-99); Potassium 4.2 mmol/L (3.5-5.1); Sodium 131 mmol/L (135-145); eGFR > 60.00
[2023-07-04] MEDS: FLEXERIL 10 MG PO (06:04)
[2023-07-04 06:13] LABS: Troponin I 0.063 ng/ml
[2023-07-04 06:23] LABS: Glucose - Point of Care 227 mg/dl (70-99)
[2023-07-04 09:08] LABS: Glucose - Point of Care 258 mg/dl (70-99)
[2023-07-04] MEDS: ASPIR LOW (ENTERIC COATED) 81 MG PO (09:10)
[2023-07-04] MEDS: LEXAPRO 20 MG PO (09:11)
[2023-07-04] MEDS: ZYRTEC 10 MG PO (09:11)
[2023-07-04] MEDS: NEURONTIN 600 MG PO ×2 (09:11→17:38)
[2023-07-04] MEDS: MOBIC 15 MG PO (09:11)
[2023-07-04] MEDS: PROTONIX 40 MG PO (09:11)
[2023-07-04] MEDS: LOPID 600 MG PO (09:11)
[2023-07-04] MEDS: LOPRESSOR 25 MG PO ×2 (09:11→19:30)
[2023-07-04] MEDS: NORVASC PO (09:12)
[2023-07-04] MEDS: NOVOLOG FLEXPEN-LOW RESISTANCE 3 UNITS SC (09:30)
--- NOTE | 2023-07-04 09:52 | W.PN.CARDCBS ---
Today's Communication / Plan
-
DKA management per primary service
Monitor fluid status, no overt HF at this time
Normal EF by echo
Impression / Plan
-
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
Primary Oncologist: Dr. Morgan of [facility]
Assessment:
Presentation with SOB
DKA
Leukocytosis
Acute hypoxic respiratory failure
Concern for component of acute CHF
Paroxysmal atrial fibrillation with RVR, spontaneously converted to SR 07/03/23
Bilateral pulmonary vein RF ablations at time of CABG 06/2020
s/p MANISH Atricure clip closure 06/15/20
Chronic Eliquis OAC, recently stopped due to hemorrhagic drainage from pleurxSinus tachycardiaElevated troponin, suspected nonMI trop elevation
Pseudohyponatremia
Hypoalbuminemia
Stage 4 adenocarcinoma of lung, mets to bone, followed at [facility]
Recurrent L pleural effusion, exudative in nature 12/14/2022, s/p pleurx catheter placement 06/2023
History of right-sided pleural effusion requiring thoracentesis
CAD
s/p CABG x 4 with HAMMOND-mid LAD; SVG seq - RPD, intramyocardial RI; SVG - D2 06/2020IDDM w/ insulin pumpHTN
Hyperlipidemia
Small left lower lobe pulmonary embolism in 08/2021
hx prostate CA s/p prostatectomy
Peripheral neuropathy
ECHO 12/17/2022: EF 54%, mild MR, sclerotic aortic valve without stenosis, mild to moderate TR, PAP 37 mmHg, pleural effusion present
TTE 07/03/2023: EF 55-60%, moderate MR, mild TR with PASP 39 mmHg, pleural effusion, trivial pericardial effusion
Plan:
-Patient presents with shortness of breath.� In DKA on arrival due to a pump issue.� Also was in rapid A-fib on arrival, spontaneously converted to sinus rhythm while still in ER
-Cardiology consulted due to concern for component of acute CHF as etiology of shortness of breath.� proBNP elevated at 5500.� Chest x-ray with left lung malignancy and left pleural effusion noted.� Chest CT without PE, pleurx catheter noted on left
with small volume decrease left pleural effusion, pulmonary interstitial markings in left lung with lymphangitic spread of tumor not able to be excluded, and marked widespread bony metastatic disease. SOB could also be related to malignancy/known
exudative pleural effusion. also with hypoalbuminemia which could explain LE edema
-wean supp O2 as able
-For now would treat DKA.� treat underlying causes likely related to atrial fibrillation; reassess fluid status, may require diuresis after DKA treatment
-Fortunately converted spontaneously to sinus rhythm in the ER.� Continue outpatient Lopressor� Eliquis was discontinued earlier this week with hemorrhagic drainage from Pleurx.� Of note he does have left atrial appendage clip from 2020, continue to
hold Eliquis for now
-Troponin elevated at 0.08.� No chest pain.� Suspected non-DE troponin elevation.� Trend to peak.� EKGs without evidence of acute ischemic changes. continue asa, statin
-Prognosis appears poor.� He is noted to be a full code.� He is scheduled for follow-up appointment with his oncologist on 07/06/2023 at 2 PM, and patient/family would like to make this appointment if possible.�
-Recommend strongly for goals of care discussion by primary team
Progress Note - Crayon Molding Machine Operator
Subjective
Date of Service: July 04, 2023
Patient seen and examined this morning. No acute events overnight. Patient resting comfortably, denies cp, sob, palpitations, lh, dizziness, near syncope, syncope, or weakness. Tele sinus tachycardia, patient asymptomatic.
Objective
Labs:
07/04/23 05:21
07/04/23 20:00
Labs
Hgb 13.2 g/dL (13.0-18.0) 07/04/23 05:21
Hct 38.1 % (39.0-52.0) L 07/04/23 05:21
Plt Count 238 10^3/uL (130-400) 07/04/23 05:21
PT 16.4 Sec (11.4-14.6) H 07/03/23 11:59
INR 1.34 07/03/23 11:59
Sodium Cancelled 07/04/23 20:00
Potassium Cancelled 07/04/23 20:00
BUN Cancelled 07/04/23 20:00
Creatinine Cancelled 07/04/23 20:00
Glucose Cancelled 07/04/23 20:00
Troponins
07/03/23 07/03/23 07/03/23
11:59 19:40 23:26
Troponin I 0.080 H* 0.061 H* 0.066 H*
07/04/23
05:21
Troponin I 0.063 H*
Vital Signs and I&O:
Vital Signs
Temp Pulse Resp BP Pulse Ox
99.2 F 121 24 127/93 94
07/04/23 07:55 07/04/23 07:30 07/04/23 07:30 07/04/23 06:00 07/04/23 07:30
Vital Signs
Temp Pulse Resp BP Pulse Ox
99.2 F 121 24 127/93 94
07/04/23 07:55 07/04/23 07:30 07/04/23 07:30 07/04/23 06:00 07/04/23 07:30
Intake & Output
07/02/23 07/03/23 07/04/23 07/05/23
06:59 06:59 06:59 06:59
Intake Total 3165 / 3165 360 / 360
Output Total 150 / 150
Balance 3015 / 3015 360 / 360
Physical Exam
Physical Exam
General:�No Apparent Distress and Other (appears frail, cachectic)
HEENT:�Normocephalic, Anicteric and Moist Mucous Membranes
Respiratory:�Non Labored Respirations and Other (decreased BS at bases)
Cardiac:�S1/S2 and Regular Rhythm, tachycardic
GI:�Soft and Non Distended
Musculoskeletal:�No Clubbing, No Cyanosis, No Edema
Skin:�Warm and Dry
Neuro:�AO x 3
--- NOTE | 2023-07-04 10:11 | W.PN.HOSP.TC ---
Today's Communication/Plan
-
Continue basal bolus insulin regimen child has insulin pump calibration issues started.
Transfer to telemetry.
PT eval
Advance diet per
Assessment / Plan
Assessment / Plan
# Diabetic ketoacidosis secondary to malfunction of insulin pump. He was without his insulin pump for a week.
-Resolved DKA. Normalized lactic acid. Anion gap normalized.
-Patient initiated on Lantus and nutritional insulin for now.
-Patient advised to speak with pump resources representative for calibration of his insulin pump and in meantime we will use basal bolus insulin for glycemic control.
# Paroxysmal atrial fibrillation with RVR on admission l
-Converted spontaneously
-Cardizem drip DC'd
-Continue to monitor heart rate
-EKG on arrival with a flutter with variable AV block, incomplete right bundle branch block, nonspecific ST and T wave abnormality
-Repeat EKG with sinus tachycardia, incomplete right bundle branch block
-Metoprolol continued twice a day
-Cardiology input noted.
-His anticoagulation was discontinued because of the hemorrhagic nature of his left pleural effusion.
# Elevated Trop likely demand ischemia
-Trop 0.080
-Trend troponin
-No complaints of chest pain
#Acute hypoxic respiratory insufficiency -resolved
-Patient was requiring 3 L of oxygen;currently on room air
- Possible multifactorial including lung cancer , may be lymphangitic spread in lung +_ acute CHFpEF in settin of rapid afib
-chest CT with No evidence of central pulmonary embolism.Patient with history of left lung carcinoma with left lower lobe consolidation again identified. Placement of percutaneous left pleural catheter in the interval since recent prior study CT
(with accompanying air likely related to the catheter) with overall small volume decreased left pleural effusion. Cannot exclude some accompanying left pleural thickening.Slightly prominent pulmonary interstitial markings in the left lung, cannot
exclude some lymphangitic spread of tumor.Marked widespread bony metastatic disease again seen.
-chest x ray with Patient with known left lung malignancy again seen to contain opacification in the left chest at least in part representing pleural effusion and/or pleural thickening perhaps slightly increased in comparison to recent prior study.
-BNP 5300
-hold diuretics for now
#�hyponatremia
Initially when corrected to glucose was normal. Today hyponatremic despite improved blood sugars. Check urine lytes
# Leukocytosis likely stress reaction
-WBC 14.9
-Afebrile
-Improved without abx tx
-Blood culture sent from ER
-Continue to monitor
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
# History of left lower lobe PE August 2021
# History of prostate cancer status post prostatectomy
# Coronary disease with history of CABG
Aspirin, metoprolol
# Hyperlipidemia-continue gemfibrozil, pravastatin
# Hypertension-on Norvasc, metoprolol
# History of E. coli and Klebsiella bacteremia secondary to cholangitis
# Depression-Lexapro, trazodone
# GERD-PPI
# Ex-smoker
# DVT prophylaxis-
lovenox
Tx to tele
PT eval
Total time spent on today's encounter was 52 minutes which included time spent in counseling the patient regarding diagnosis and treatment plan as listed above, goals of care, and symptom management. Case was discussed with nursing staff,
specialists, . All labs and imaging personally reviewed by me. Remainder the time spent in detailed review of previous records, lab data, imaging, and other medical provider documentation.
Anticipated Discharge: 24 - 48 hours
Subjective/Interval History
-
Date of Service: July 04, 2023
Feels improved. Not short of breath at rest. Most of his shortness of breath is with exertion.
No palpitations today. In sinus rhythm on the monitor.
No GI symptoms. Tolerating clear liquids.
Objective Data
-
Labs:
Laboratory Results
07/03/23 07/04/23 07/04/23
: 00:00 02:00
WBC
Hgb
Hct
Plt Count
Sodium 129 L Cancelled Cancelled
Potassium 3.9 Cancelled Cancelled
Chloride 103 Cancelled Cancelled
Carbon Dioxide 21 L Cancelled Cancelled
BUN 20 Cancelled Cancelled
Creatinine 0.9 Cancelled Cancelled
Glucose 150 H Cancelled Cancelled
Calcium 7.7 L Cancelled Cancelled
07/04/23 07/04/23 07/04/23
04:00 05:21 06:00
WBC 11.7 H
Hgb 13.2
Hct 38.1 L
Plt Count 238
Sodium Cancelled 131 L Cancelled
Potassium Cancelled 4.2 Cancelled
Chloride Cancelled 103 Cancelled
Carbon Dioxide Cancelled 20 L Cancelled
BUN Cancelled 17 Cancelled
Creatinine Cancelled 0.8 Cancelled
Glucose Cancelled 224 H Cancelled
Calcium Cancelled 7.8 L Cancelled
07/04/23 07/04/23 07/04/23
08:00 08:00 08:00
WBC
Hgb
Hct
Plt Count
Sodium Cancelled Cancelled
Potassium Cancelled Cancelled
Chloride Cancelled
Carbon Dioxide
BUN
Creatinine
Glucose
Calcium
07/04/23 07/04/23 07/04/23
08:00 08:00 08:00
WBC
Hgb
Hct
Plt Count
Sodium
Potassium
Chloride Cancelled
Carbon Dioxide Cancelled Cancelled
BUN Cancelled Cancelled
Creatinine Cancelled
Glucose
Calcium
07/04/23 07/04/23 07/04/23
08:00 08:00 08:00
WBC
Hgb
Hct
Plt Count
Sodium
Potassium
Chloride
Carbon Dioxide
BUN
Creatinine Cancelled
Glucose Cancelled Cancelled
Calcium Cancelled Cancelled
07/04/23 07/04/23 07/04/23
10:00 12:00 12:00
WBC
Hgb
Hct
Plt Count
Sodium Cancelled Cancelled Cancelled
Potassium Cancelled Cancelled
Chloride Cancelled
Carbon Dioxide Cancelled
BUN Cancelled
Creatinine Cancelled
Glucose Cancelled
Calcium Cancelled
07/04/23 07/04/23 07/04/23
12:00 12:00 12:00
WBC
Hgb
Hct
Plt Count
Sodium
Potassium Cancelled
Chloride Cancelled Cancelled
Carbon Dioxide Cancelled Cancelled
BUN Cancelled
Creatinine
Glucose
Calcium
07/04/23 07/04/23 07/04/23
12:00 12:00 12:00
WBC
Hgb
Hct
Plt Count
Sodium
Potassium
Chloride
Carbon Dioxide
BUN Cancelled
Creatinine Cancelled Cancelled
Glucose Cancelled Cancelled
Calcium Cancelled
07/04/23 07/04/23 07/04/23
12:00 14:00 16:00
WBC
Hgb
Hct
Plt Count
Sodium Cancelled Cancelled
Potassium Cancelled Cancelled
Chloride Cancelled Cancelled
Carbon Dioxide Cancelled Cancelled
BUN Cancelled Cancelled
Creatinine Cancelled Cancelled
Glucose Cancelled Cancelled
Calcium Cancelled Cancelled Cancelled
07/04/23
20:00
WBC
Hgb
Hct
Plt Count
Sodium Cancelled
Potassium Cancelled
Chloride Cancelled
Carbon Dioxide Cancelled
BUN Cancelled
Creatinine Cancelled
Glucose Cancelled
Calcium Cancelled
Vital Signs:
Vital Signs
Temp Pulse Resp BP Pulse Ox
99.2 F 121 24 127/93 94
07/04/23 07:55 07/04/23 07:30 07/04/23 07:30 07/04/23 06:00 07/04/23 07:30
I&O
07/03/23 07/04/23 07/05/23
06:59 06:59 06:59
Intake Total 3165 / 3165 360 / 360
Output Total 150 / 150
Balance 3015 / 3015 360 / 360
Review of Systems
-
Constitutional: Denies Fever
EENT: Denies Sore Throat
Respiratory: Reports Cough (chronic)
Neuro: Denies Dizzy
Physical Exam
-
General: No Apparent Distress
HEENT: Moist Mucous Membranes
Respiratory: Decreased Breath Sounds (left lower zone); Negative Wheezes
Cardiac: Regular Rhythm, S1/S2 and Tachycardic
GI: Soft and Nontender
Neuro: AO x 3
Data Reviewed
-
Labs: Labs Reviewed by me
[2023-07-04 13:32] LABS: Glucose - Point of Care 410 mg/dl (70-99)
[2023-07-04 13:58] LABS: Glucose 353 mg/dl (70-99)
[2023-07-04] MEDS: NOVOLOG FLEXPEN-LOW RESISTANCE 5 UNITS SC (14:01)
[2023-07-04] MEDS: NOVOLOG FLEXPEN 3 UNITS SC ×2 (14:02→17:37)
[2023-07-04] MEDS: NOVOLOG FLEXPEN-LOW RESISTANCE 4 UNITS SC ×2 (17:37→21:58)
[2023-07-04] MEDS: LOVENOX 40 MG SC (17:38)
[2023-07-04 17:46] LABS: Glucose - Point of Care 330 mg/dl (70-99)
[2023-07-04] MEDS: DESYREL 200 MG PO (21:06)
[2023-07-04] MEDS: PRAVACHOL 40 MG PO (21:06)
[2023-07-04] MEDS: NEURONTIN 1200 MG PO (21:06)
[2023-07-04 21:17] LABS: Glucose - Point of Care 403 mg/dl (70-99)
[2023-07-04 21:34] LABS: Glucose 334 mg/dl (70-99)
[2023-07-04] MEDS: LANTUS 0.100000000000000006 UNITS SC (21:59)
[2023-07-05] VITALS (9 sets, daily range): BP systolic 86–123; BP diastolic 55–84; BMI 21.6
[2023-07-05 00:12] LABS: Glucose - Point of Care 215 mg/dl (70-99)
[2023-07-05 05:02] LABS: Hematocrit 38.8 % (39.0-52.0); Hemoglobin 12.8 g/dL (13.0-18.0); Mean Corpuscular Hgb 28.6 pg (27.0-31.0); Mean Corpuscular Volume 86.6 fL (80.0-94.0); Mean Platelet Volume 9.3 fL (7.4-10.4); Platelet Count 222 10^3/uL (130-400); Red Blood Cell Count 4.48 10^6/uL (4.70-6.10); Red Cell Dist. Width 15.9 % (11.5-14.5); White Blood Cell Count 10.1 10^3/uL (4.8-10.8)
[2023-07-05 05:21] LABS: Osmolality Urine 714 mOsm/kg (300-900)
[2023-07-05 05:27] LABS: Urine Sodium 58 mmol/L (30-90)
[2023-07-05 05:27] LABS: Blood Urea Nitrogen 17 mg/dl (9-20); Calcium 7.7 mg/dl (8.4-10.2); Carbon Dioxide 22 mmol/L (22-30); Chloride 100 mmol/L (98-107); Estimated Creatinine Clearance 71 ml/min; Glucose 259 mg/dl (70-99); Potassium 4.4 mmol/L (3.5-5.1); Sodium 127 mmol/L (135-145); eGFR > 60.00
--- NOTE | 2023-07-05 05:47 | PTCARENOTE ---
Rec'd pt from IMU. Denies pain at this time. Oriented to room . call mackenzie in reach.
--- NOTE | 2023-07-05 05:54 | PTCARENOTE ---
Report given to 4W RN and transfer to room 336-2
[2023-07-05] MEDS: FLEXERIL 10 MG PO (06:13)
[2023-07-05 07:36] LABS: Glucose - Point of Care 261 mg/dl (70-99)
[2023-07-05] MEDS: PROTONIX 40 MG PO (09:34)
[2023-07-05] MEDS: ASPIR LOW (ENTERIC COATED) 81 MG PO (09:35)
[2023-07-05] MEDS: NORVASC 7.5 MG PO (09:35)
[2023-07-05] MEDS: NEURONTIN 600 MG PO ×2 (09:37→17:09)
[2023-07-05] MEDS: LOPID 600 MG PO (09:37)
[2023-07-05] MEDS: LEXAPRO 20 MG PO (09:37)
[2023-07-05] MEDS: LOPRESSOR 25 MG PO (09:43)
[2023-07-05] MEDS: ZYRTEC 10 MG PO (09:44)
[2023-07-05] MEDS: MOBIC 15 MG PO (09:44)
[2023-07-05] MEDS: NOVOLOG FLEXPEN-LOW RESISTANCE 3 UNITS SC (10:03)
[2023-07-05] MEDS: NOVOLOG FLEXPEN 3 UNITS SC ×3 (10:04→17:41)
[2023-07-05 11:19] LABS: Glucose - Point of Care 358 mg/dl (70-99)
--- NOTE | 2023-07-05 11:45 | W.PN.HOSP.TC ---
Today's Communication/Plan
-
IR to drain the pleural effusion
DC planning
Assessment / Plan
Assessment / Plan
# Diabetic ketoacidosis secondary to malfunction of insulin pump. He was without his insulin pump for a week.
-Resolved DKA. Normalized lactic acid. Anion gap normalized.
-Patient initiated on Lantus and nutritional insulin for now. Increase the dose of Lantus and adjust up the nutritional insulin.
-Patient advised to speak with pump shared services representative for calibration of his insulin pump and in meantime we will use basal bolus insulin for glycemic control. Patient tried to speak with shared services representative but invited after holding for 45 minutes. Our
diabetic nurse educator team is not here over the weekend.
-Patient states he has an appointment with his oncologist at 2:30 PM tomorrow and wants to make it to it. He has done long-acting insulin Lantus and requests long-acting insulin prescription. He can checks blood sugars at home without the pump;
normally his blood sugar checks are through the insulin pump. He also agreeable to do nutritional insulin at home. 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
# Paroxysmal atrial fibrillation with RVR on admission l
-Converted spontaneously
-Cardizem drip DC'd
-Continue to monitor heart rate
-EKG on arrival with a flutter with variable AV block, incomplete right bundle branch block, nonspecific ST and T wave abnormality
-Repeat EKG with sinus tachycardia, incomplete right bundle branch block
-Metoprolol continued twice a day
-Cardiology input noted.
-His anticoagulation was discontinued because of the hemorrhagic nature of his left pleural effusion.
# Elevated Trop likely demand ischemia
-Trop 0.080
-Trend troponin
-No complaints of chest pain
#Acute hypoxic respiratory insufficiency -resolved
-Patient was requiring 3 L of oxygen;currently on room air
- Possible multifactorial including lung cancer , may be lymphangitic spread in lung ;cards doesnt feel acute CHF component present
-chest CT with No evidence of central pulmonary embolism.Patient with history of left lung carcinoma with left lower lobe consolidation again identified. Placement of percutaneous left pleural catheter in the interval since recent prior study CT
(with accompanying air likely related to the catheter) with overall small volume decreased left pleural effusion. Cannot exclude some accompanying left pleural thickening.Slightly prominent pulmonary interstitial markings in the left lung, cannot
exclude some lymphangitic spread of tumor.Marked widespread bony metastatic disease again seen.
-chest x ray with Patient with known left lung malignancy again seen to contain opacification in the left chest at least in part representing pleural effusion and/or pleural thickening perhaps slightly increased in comparison to recent prior study.
-BNP 5300
-hold diuretics for now
#�hyponatremia
Initially when corrected to glucose was normal. Now hyponatremic despite improved blood sugars. urine lytes suggests SIADH possibly from his lung cancer. Continue with fluid restriction. Start on sodium tabs. Use Lasix every other day at home.
# Leukocytosis likely stress reaction
-WBC 14.9
-Afebrile
-Improved without abx tx
-Blood culture neg
-Continue to monitor
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
# Recurrent pleural effusion secondary to cancer-left Pleurx catheter in place-patient symptomatic with cough. IR to tap him again today.
# History of left lower lobe PE August 2021
# History of prostate cancer status post prostatectomy
# Coronary disease with history of CABG
Aspirin, metoprolol
# Hyperlipidemia-continue gemfibrozil, pravastatin
# Hypertension-blood pressure on lower side. I will DC further Norvasc and continue with metoprolol
# History of E. coli and Klebsiella bacteremia secondary to cholangitis
# Depression-Lexapro, trazodone
# GERD-PPI
# Ex-smoker
# DVT prophylaxis-
lovenox
PT eval noted
DC home after his pleural fluid is tapped
Pt understands the changes in tx plan,medication and follow up plan.
Follwo BMP in a week
Follow with Endo as OP
Total time of discharge 35 minutes
Anticipated Discharge: Today
Subjective/Interval History
-
Date of Service: July 05, 2023
He thinks his left Pleural fluid is reaccumulating-he is feeling short of breath a little and also cough which happens when it reaccumulates.
Last drainage was before he came into the hospital.
Denies any chest pain or palpitations.
No fever or chills.
No nausea vomiting.
Tolerating diet.
Objective Data
-
Labs:
Laboratory Results
07/05/23
04:29
WBC 10.1
Hgb 12.8 L
Hct 38.8 L
Plt Count 222
Sodium 127 L
Potassium 4.4
Chloride 100
Carbon Dioxide 22
BUN 17
Creatinine 0.9
Glucose 259 H
Calcium 7.7 L
Vital Signs:
Vital Signs
Temp Pulse Resp BP Pulse Ox
98.6 F 110 22 110/67 95
07/05/23 08:10 07/05/23 08:10 07/05/23 08:10 07/05/23 08:10 07/05/23 08:10
I&O
07/04/23 07/05/23 07/06/23
06:59 06:59 06:59
Intake Total 3165 / 3165 480 / 480
Output Total 150 / 150
Balance 3015 / 3015 480 / 480
Review of Systems
-
Neuro: Denies Dizzy
Physical Exam
-
General: No Apparent Distress
HEENT: Moist Mucous Membranes
Respiratory: Non Labored Respirations and Decreased Breath Sounds (left lower zone); Negative Wheezes or Accessory Resp Muscle Use
Cardiac: Regular Rhythm and S1/S2
GI: Soft
Neuro: AO x 3
Psych: Calm
Data Reviewed
-
Labs: Labs Reviewed by
--- NOTE | 2023-07-05 11:55 | PTCARENOTE ---
Patient with asymptomatic manual BP 88/56 while sitting up in chair. Dr. Saeed aware.
--- NOTE | 2023-07-05 12:04 | W.DS.TRANS ---
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
-
Discharge Instructions:
Sleep Apnea Risk Intermediate
Discharge Diagnosis/Procedures DKA sec to malfunctioning insulin pump. chronic
hyponatremia. metastatic lung cancer with
recurrent left pleural effusion; left Pleurx
catheter in place.
Diet Diabetic, Carb Controlled
Activity As tolerated
Driving Restrictions As prior to admission
Bathing Restrictions None
Blood Work BMP in mid week -slip given
Other Services VN,PT
Instructions:
Stand-Alone Forms:
Changes to Home Medications: Yes
Discharge Medications:
DC Medications w/original date entered in [employer]
metformin 500 mg tablet 1,000 mg PO BID Diabetes 06/12/20
trazodone 100 mg tablet 200 mg PO HS Sleep 08/31/21
aspirin 81 mg tablet,delayed release 81 mg PO DAILY Blood Clot Prevention/Tx 07/03/23
cetirizine 10 mg tablet 10 mg PO DAILY Allergies 07/03/23
cyclobenzaprine 10 mg tablet 10 mg PO DAILY AT 0700 Muscle Spasms 07/03/23
escitalopram oxalate 20 mg tablet 20 mg PO DAILY depression/anxiety 07/03/23
gabapentin 300 mg capsule 600 mg PO BID@0800,1700 pain 07/03/23
gabapentin 600 mg tablet 1,200 mg PO HS pain 07/03/23
gemfibrozil 600 mg tablet 600 mg PO DAILY High Cholesterol 07/03/23
meloxicam 15 mg tablet 15 mg PO DAILY pain 07/03/23
metoprolol tartrate 25 mg tablet 25 mg PO BID Blood Pressure 07/03/23
omeprazole 20 mg capsule,delayed release 20 mg PO DAILY Gastrointestinal Issue 07/03/23
pravastatin 40 mg tablet 40 mg PO HS high cholesterol 07/03/23
furosemide 20 mg tablet (Lasix) 20 mg PO Q OTHER DAY #20 tabs 07/05/23
insulin aspart U-100 100 unit/mL (3 mL) subcutaneous pen 3 unit (0.03 mL) SC AC #15 mL 07/05/23
insulin glargine 100 unit/mL (3 mL) subcutaneous pen (Lantus Solostar U-100 Insulin) 15 unit (0.15 mL) SC QPM #3 mL 07/05/23
sodium chloride 1,000 mg soluble tablet 1,000 mg PO DAILY #30 tabs 07/05/23
Home Medication Changes
New medications
Lantus and NovoLog and nutritional insulin Alba has a insulin pump situation is resolved.
Sodium chloride tablet and Lasix every other day
Pending Results: No
--- NOTE | 2023-07-05 12:16 | CM ---
Patient seen bedside.
IA completed.
Patient lives with spouse in a 2 story home.
Patient independent without AD prior to admission.
Patient has a Pleurx catheter and insulin pump.
Patient also has a glucometer at home.
Per patient insulin pump was malfunctioning.
Carlene KINCAID is current with patient and last drained his Pleurex Thursday. Due to be drained again tomorrow.
Referral for ASHLEY Concepcion via [facility].
Per patient he has an Oncology appointment t [facility] tomorrow at 2, needs to be seen here by the diabetic nurse educator prior to d/c. will leave message with office ([phone]).
PCP and pharmacy verified.
Plan:home with ASHLEY KINCAID
[2023-07-05] MEDS: NOVOLOG FLEXPEN-LOW RESISTANCE 5 UNITS SC (12:44)
--- NOTE | 2023-07-05 13:10 | W.PN.CARDCBS ---
Today's Communication / Plan
-
IV Lasix x1; IR to drain effusion
Monitor response on telemetry
Impression / Plan
-
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
Primary Oncologist: Dr. Morgan of [facility]
Assessment:
Presentation with SOB
DKA
Leukocytosis
Acute hypoxic respiratory failure
Concern for component of acute CHF
Paroxysmal atrial fibrillation with RVR, spontaneously converted to SR 07/03/23
Bilateral pulmonary vein RF ablations at time of CABG 06/2020
s/p MANISH Atricure clip closure 06/15/20
Chronic Eliquis OAC, recently stopped due to hemorrhagic drainage from pleurxSinus tachycardiaElevated troponin, suspected nonMI trop elevation
Pseudohyponatremia
Hypoalbuminemia
Stage 4 adenocarcinoma of lung, mets to bone, followed at [facility]
Recurrent L pleural effusion, exudative in nature 12/14/2022, s/p pleurx catheter placement 06/2023
History of right-sided pleural effusion requiring thoracentesis
CAD
s/p CABG x 4 with HAMMOND-mid LAD; SVG seq - RPD, intramyocardial RI; SVG - D2 06/2020IDDM w/ insulin pumpHTN
Hyperlipidemia
Small left lower lobe pulmonary embolism in 08/2021
hx prostate CA s/p prostatectomy
Peripheral neuropathy
ECHO 12/17/2022: EF 54%, mild MR, sclerotic aortic valve without stenosis, mild to moderate TR, PAP 37 mmHg, pleural effusion present
TTE 07/03/2023: EF 55-60%, moderate MR, mild TR with PASP 39 mmHg, pleural effusion, trivial pericardial effusion
Plan:
-Patient presents with shortness of breath.� In DKA on arrival due to a pump issue.� Also was in rapid A-fib on arrival, spontaneously converted to sinus rhythm while still in ER
-Cardiology consulted due to concern for component of acute CHF as etiology of shortness of breath.� proBNP elevated at 5500.� Chest x-ray with left lung malignancy and left pleural effusion noted.� Chest CT without PE, pleurx catheter noted on left
with small volume decrease left pleural effusion, pulmonary interstitial markings in left lung with lymphangitic spread of tumor not able to be excluded, and marked widespread bony metastatic disease. SOB could also be related to malignancy/known
exudative pleural effusion. also with hypoalbuminemia which could explain LE edema
-wean supp O2 as able
-For now would treat DKA.� treat underlying causes likely related to atrial fibrillation; reassess fluid status, may require diuresis after DKA treatment; gentle diuresis, IR to drain effusion
-Fortunately converted spontaneously to sinus rhythm in the ER.� Continue outpatient Lopressor� Eliquis was discontinued earlier this week with hemorrhagic drainage from Pleurx.� Of note he does have left atrial appendage clip from 2020, continue to
hold Eliquis for now
-Troponin elevated at 0.08.� No chest pain.� Suspected non-HI troponin elevation.� Trend to peak.� EKGs without evidence of acute ischemic changes. continue asa, statin
-Prognosis appears poor.� He is noted to be a full code.� He is scheduled for follow-up appointment with his oncologist on 07/06/2023 at 2 PM, and patient/family would like to make this appointment if possible.�
-Recommend strongly for goals of care discussion by primary team
Progress Note - Mine Surveyor
Subjective
Date of Service: July 05, 2023
Patient seen and examined. No acute events ovnight. Patient resting comfortably in chair. Notes mild SOB but not significant he says. No cp, palpitations, or weakness.
Objective
Labs:
07/05/23 04:29
07/05/23 04:
Labs
Hgb 12.8 g/dL (13.0-18.0) L 07/05/23 04:29
Hct 38.8 % (39.0-52.0) L 07/05/23 04:29
Plt Count 222 10^3/uL (130-400) 07/05/23 04:29
PT 16.4 Sec (11.4-14.6) H 07/03/23 11:59
INR 1.34 07/03/23 11:59
Sodium 127 mmol/L (135-145) L 07/05/23 04:29
Potassium 4.4 mmol/L (3.5-5.1) 07/05/23 04:29
BUN 17 mg/dl (9-20) 07/05/23 04:29
Creatinine 0.9 mg/dL (0.7-1.3) 07/05/23 04:29
Glucose 259 mg/dl (70-99) H 07/05/23 04:29
Troponins
07/03/23 07/03/23 07/03/23
11:59 19:40 23:26
Troponin I 0.080 H* 0.061 H* 0.066 H*
07/04/23
05:21
Troponin I 0.063 H*
Vital Signs and I&O:
Vital Signs
Temp Pulse Resp BP Pulse Ox
98.3 F 103 18 86/57 99
07/05/23 12:07 07/05/23 12:07 07/05/23 12:07 07/05/23 12:07 07/05/23 12:07
Vital Signs
Temp Pulse Resp BP Pulse Ox
98.3 F 103 18 86/57 99
07/05/23 12:07 07/05/23 12:07 07/05/23 12:07 07/05/23 12:07 07/05/23 12:07
Intake & Output
07/03/23 07/04/23 07/05/23 07/06/23
06:59 06:59 06:59 06:59
Intake Total 3165 / 3165 480 / 480
Output Total 150 / 150
Balance 3015 / 3015 480 / 480
Physical Exam
Physical Exam
General:�No Apparent Distress and Other (appears frail, cachectic)
HEENT:�Normocephalic, Anicteric and Moist Mucous Membranes
Respiratory:�Non Labored Respirations and Other (decreased BS at bases)
Cardiac:�S1/S2 and Regular Rhythm, tachycardic
GI:�Soft and Non Distended
Musculoskeletal:�No Clubbing, No Cyanosis, No Edema
Skin:�Warm and Dry
Neuro:�AO x 3
Tele SR/ST
--- NOTE | 2023-07-05 14:03 | PN.IRAD.UPD ---
Update Note - IRAD
- -
WEMT BEDSIDE AT 1400 TO DRAIN PATIENT'S LEFT SIDED ASEPT CATHETER. TOOK OFF 450ML OF DARK RED FLUID. NO COMPLAINTS FROM PATIENT, WAS LAST DRAINED ON THURSDAY. REDRESSED WITH TEGADERM.
[2023-07-05] MEDS: LASIX 20 MG IV (14:19)
[2023-07-05] MEDS: ROXICODONE 5 MG PO (14:53)
[2023-07-05 16:32] LABS: Glucose - Point of Care 405 mg/dl (70-99)
[2023-07-05 17:09] LABS: Glucose 433 mg/dl (70-99)
[2023-07-05] MEDS: LOVENOX 40 MG SC (17:09)
[2023-07-05] MEDS: NOVOLOG FLEXPEN-LOW RESISTANCE 6 UNITS SC (17:40)
[2023-07-05 19:57] LABS: Glucose - Point of Care 483 mg/dl (70-99)
[2023-07-05 20:38] LABS: Glucose 452 mg/dl (70-99)
--- NOTE | 2023-07-05 20:55 | PTCARENOTE ---
Addendum entered by Shira Lu RN 07/05/23 22:54:
Karen states she did not want a stat glucose drawn at this time.
Addendum entered by Shira Lu RN 07/05/23 22:52:
Delroybrittney Lucius LEAL aware that blood sugar taken 2 hours after treatment was 401. ordered to give 6U of Novolog now.
Original Note:
Karen Lucius LEAL made aware that at 1940 483 with a stat glucose of 452. She ordered to give the HS Lantus and sliding scale insulin and repeat a finger stick in 2 hours. pt updated on all orders.
[2023-07-05] MEDS: LANTUS 0.149999999999999994 UNITS SC (21:09)
[2023-07-05] MEDS: NOVOLOG FLEXPEN-LOW RESISTANCE 300 UNITS SC (21:10)
[2023-07-05] MEDS: LOPRESSOR PO (21:11)
[2023-07-05] MEDS: NEURONTIN 1200 MG PO (21:25)
[2023-07-05] MEDS: PRAVACHOL 40 MG PO (21:25)
[2023-07-05] MEDS: DESYREL 200 MG PO (21:27)
[2023-07-05 22:18] LABS: Glucose - Point of Care 401 mg/dl (70-99)
[2023-07-05] MEDS: NOVOLOG FLEXPEN 6 UNITS SC (22:56)
[2023-07-06 00:46] LABS: Glucose - Point of Care 251 mg/dl (70-99)
[2023-07-06 03:38] VITALS: BP 127/76
[2023-07-06 04:42] VITALS: BMI 21.5
[2023-07-06 07:14] LABS: Glucose - Point of Care 266 mg/dl (70-99)
[2023-07-06] MEDS: FLEXERIL 10 MG PO (07:30)
[2023-07-06 07:46] VITALS: BP 96/62
--- NOTE | 2023-07-06 08:42 | PN.DE.MGMTRT ---
Insulin Management
- -
07/06/2023: Insulin Pump Management F/U:
72 year old male admitted with DKA, GAP of 12, glucose 419, Cr 1.0 eGFR >60 on admission. Pt well known to Diabetes team from previous hosp admissions.
PMH: ASCVD, HTN, HCL, prostate CA, diabetes. Was using Tandem Tslim X2 insulin pump with [employer]or[employer]ob G6 CGM up until a week ago when his pump malfunctioned and Pt stopped taking his insulin. A1C was 8.7% on 06/08/23.
Glucose remained elevated throughout the weekend, trended up to 483, requiring high doses of aspart.
FBG this morning is 266, Pt is about to eat breakfast. Will give NovoLog 10 units NOW and attempt to resume insulin pump.
Insulin pump has been charged, new insulin and infusion kit at bedside, CGM in place
Was able to assist pt this morning to set up new insulin with new infusion set.
Current Pump settings:
Basal ICF ICR Target
12am 1.15 30 1:17 110
2am 1.65 30 1:1.7 110
12pm 1.1 30 1:1.4 110
5pm 1.1 30 1:1.4 110
6pm 1.1 30 1:1.4 110
9pm 1.3 30 1:7 110
24 hour basal total 33.34 units.
Reviewed bolus and corrections via pump with pt. He states he is independent with bolus adm during meals. Accucheks AC/HS
Discussed with Nurse and pt re: Bedside insulin pump worksheet.
Pt stable for d/c home from Diabetes stand point.
Diabetes History
- -
Type of Diabetes: 2 requiring insulin
Pre-Admission Diabetes Regimen
Insulin Pump Settings
IP Diabetes Regimen
07/05/23 07/05/23 07/05/23
11:18 16:30 16:47
Glucose 433 H
POC Glucose 358 H 405 H
07/05/23 07/05/23 07/05/23
19:55 20:17 22:16
Glucose 452 H*
POC Glucose 483 H* 401 H
07/06/23 07/06/23
00:45 07:13
Glucose
POC Glucose 251 H 266 H
Meal type: Breakfast
Amount consumed: 90%
Patient Education
[2023-07-06] MEDS: NOVOLOG FLEXPEN SC (09:16)
[2023-07-06 09:33] LABS: Glucose - Point of Care 251 mg/dl (70-99)
[2023-07-06] MEDS: NOVOLOG FLEXPEN-LOW RESISTANCE SC (09:34)
[2023-07-06] MEDS: NOVOLOG FLEXPEN 10 UNITS SC (09:38)
[2023-07-06] MEDS: LOPID 600 MG PO (09:42)
[2023-07-06] MEDS: PROTONIX 40 MG PO (09:42)
[2023-07-06] MEDS: ASPIR LOW (ENTERIC COATED) 81 MG PO (09:43)
[2023-07-06] MEDS: MOBIC 15 MG PO (09:43)
[2023-07-06] MEDS: LEXAPRO 20 MG PO (09:43)
[2023-07-06] MEDS: NEURONTIN 600 MG PO (09:43)
[2023-07-06] MEDS: ZYRTEC 10 MG PO (09:43)
[2023-07-06] MEDS: LOPRESSOR 25 MG PO (09:44)
--- NOTE | 2023-07-06 10:44 | W.PN.CARDCBS ---
Today's Communication / Plan
-
Stable from cardiac standpoint.
LE edema and dyspnea likely multifactorial including his malignancy and hypoalbuminemia.
Wean O2 as able.
Remains in sinus. Pt spontaneously converted to sinus. Eliquis was stopped due to hemorrhagic drainage from Pleurx.
Continue outpatient Lopressor. Of note he does have left atrial appendage clip from 2020.
Cont medical therapy of nonMI peak trop, 0.08. � EKGs without evidence of acute ischemic changes. Continue ASA, statin
Prognosis appears poor.� Cont goals of care discussion by primary team
Will arrange outpt follow up.
Please recall if needed
Impression / Plan
-
.
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
Primary Oncologist: Dr. Morgan of [facility]
Impression:
Presentation with SOB
DKA
Leukocytosis
s/p acute hypoxic respiratory failure
Concern for component of acute CHF
Paroxysmal atrial fibrillation with RVR, spontaneously converted to SR 07/03/23
Bilateral pulmonary vein RF ablations at time of CABG 06/2020
s/p MANISH Atricure clip closure 06/15/20
Chronic Eliquis OAC, recently stopped due to hemorrhagic drainage from pleurx
Sinus tachycardia
Elevated troponin, nonMI trop elevation
Pseudohyponatremia
Hypoalbuminemia
Stage 4 adenocarcinoma of lung, mets to bone, followed at [facility]
Recurrent L pleural effusion, exudative in nature 12/14/2022, s/p pleurx catheter placement 06/2023
History of right-sided pleural effusion requiring thoracentesis
CAD
s/p CABG x 4 with HAMMOND-mid LAD; SVG seq - RPD, intramyocardial RI; SVG - D2 06/2020IDDM w/ insulin pumpHTN
Hyperlipidemia
Small left lower lobe pulmonary embolism in 08/2021
hx prostate CA s/p prostatectomy
Peripheral neuropathy
ECHO 12/17/2022: EF 54%, mild MR, sclerotic aortic valve without stenosis, mild to moderate TR, PAP 37 mmHg, pleural effusion present
TTE 07/03/2023: EF 55-60%, moderate MR, mild TR with PASP 39 mmHg, pleural effusion, trivial pericardial effusion
Plan:
-Patient presented with shortness of breath.� In DKA on arrival due to a pump issue.� Also was in rapid A-fib on arrival, spontaneously converted to sinus rhythm while still in ER. Cardiology consulted due to concern for component of acute CHF as
etiology of shortness of breath.� proBNP was elevated at 5500.� Chest x-ray with left lung malignancy and left pleural effusion noted.� Chest CT without PE, pleurx catheter noted on left with small volume decrease left pleural effusion, pulmonary
interstitial markings in left lung with lymphangitic spread of tumor not able to be excluded, and marked widespread bony metastatic disease.
Stable from cardiac standpoint.
LE edema and dyspnea likely multifactorial including his malignancy and hypoalbuminemia.
Wean O2 as able.
Remains in sinus. Pt spontaneously converted to sinus. Eliquis was stopped due to hemorrhagic drainage from Pleurx.
Continue outpatient Lopressor. Of note he does have left atrial appendage clip from 2020.
Cont medical therapy of nonMI peak trop, 0.08. � EKGs without evidence of acute ischemic changes. Continue ASA, statin
Prognosis appears poor.� Cont goals of care discussion by primary team
Will arrange outpt follow up.
Please recall if needed.
Progress Note - Electrical Controls Engineer
Subjective
Date of Service: July 06, 2023
Pt seen and examined. No complaints. No chest pain or shortness of breath.
Objective
Labs:
07/05/23 04:29
07/05/23 20:17
Labs
Hgb 12.8 g/dL (13.0-18.0) L 07/05/23 04:29
Hct 38.8 % (39.0-52.0) L 07/05/23 04:29
Plt Count 222 10^3/uL (130-400) 07/05/23 04:29
PT 16.4 Sec (11.4-14.6) H 07/03/23 11:59
INR 1.34 07/03/23 11:59
Sodium 127 mmol/L (135-145) L 07/05/23 04:29
Potassium 4.4 mmol/L (3.5-5.1) 07/05/23 04:29
BUN 17 mg/dl (9-20) 07/05/23 04:29
Creatinine 0.9 mg/dL (0.7-1.3) 07/05/23 04:29
Glucose 452 mg/dl (70-99) H* 07/05/23 20:17
Troponins
07/03/23 07/03/23 07/03/23
11:59 19:40 23:26
Troponin I 0.080 H* 0.061 H* 0.066 H*
07/04/23
05:21
Troponin I 0.063 H*
Vital Signs and I&O:
Vital Signs
Temp Pulse Resp BP Pulse Ox
99.1 F 116 16 96 92
07/06/23 07:46 07/06/23 07:46 07/06/23 07:46 07/06/23 07:46 07/06/23 07:46
Vital Signs
Temp Pulse Resp BP Pulse Ox
99.1 F 116 16 92
07/06/23 07:46 07/06/23 07:46 07/06/23 07:46 07/06/23 07:46 07/06/23 07:46
Intake & Output
07/04/23 07/05/23 07/06/23 07/07/23
06:59 06:59 06:59 06:59
Intake Total 3165 / 3165 480 / 480 360 / 360
Output Total 150 / 150 150 / 150
Balance 3015 / 3015 480 / 480 210 / 210
Physical Exam
Physical Exam
General: No acute distress, AAOX3, cachectic
Neck: Negative JVD
Heart: Regular, Negative S3 positive S1/S2, Negative S4, No murmur
Lungs: CTA b/l, negative wheezes/rales/rhonchi
Abd: Positive BS, NT/ND, neg rebound/rigidity/guarding
Ext: Negative cyanosis/clubbing/edema
Neuro: nonfocal
[2023-07-06 11:10] VITALS: BP 88/51
--- NOTE | 2023-07-06 11:17 | WOUNDNOTE ---
R LATERAL FOOT NEAR 5TH TOE
--- NOTE | 2023-07-06 11:18 | WOUNDNOTE ---
L MEDIAL HEEL AFTER CLEANING
--- NOTE | 2023-07-06 11:20 | WOUNDNOTE ---
WON RN note: Patient admitted with diabetic ketoacidosis, malfunction of insulin pump.
See H&P for complete history.
PMH: Prostate cancer-prostatectomy, adenocarcinoma of lung, IDDM, A Fib, CAD, HTN and CABG 2020.
Wound Location and type/assessment: Patient admitted with: L lateral ankle partial thickness tiny shallow ulcer, pink base. Also has tiny shallow ulcer on L heel, stage 2 PI vs diabetic ulcer. Has area of non blanchable white skin surrounding
ulcer. Patient reports he has had these wounds for about 16 months and follows regularly with Cistern Room Operator Dr. Saravia. Patient states wounds developed after a new cancer pill started, which caused edema in legs. Confirmed with patient, wounds did not
develop from tight fitting shoes. Non palpable pedal pulses, skin on legs very dry, no edema. + Audible pedal pulses with Doppler, L fainter than R. R heel and sacrum are intact. Patient incontinent of large amt urine, skin care given, brief and
chux changed.
Appetite: Good. certified adapted physical educator on consult.
Pressure redistribution devices in place: On Versa care air bed. Encouraged turning.
Plan: Silicone foams applied to L heel and ankle. Offloaded heel with air cushion on pillow under calves. Vaseline applied to both legs, will order mineral oil. Patient states he plans to follow up with his boat designer Dr. Saravia upon discharge.
Will confirm orders with hospitalist and updated nurse Sabine. Updated care plan and will follow as needed.
Note to case management of equipment requested for discharge: VN if needed.
--- NOTE | 2023-07-06 11:21 | WOUNDNOTE ---
WON RN NOTE ADDENDUM: Patient able to turn self to sides, Sacrum and buttocks are blanchable red, incontinent of urine. On air mattress, encouraged turning self when in bed. Pressure ulcer prevention measures reviewed with patient. Due to
comorbidities, incontinence and low weight, patient susceptible to skin break, patient states he understands.
[2023-07-06 12:00] LABS: Glucose - Point of Care 275 mg/dl (70-99)
--- NOTE | 2023-07-06 12:11 | CM ---
Patient is for discharge to home today, plan is for discharge to home with [facility] visiting nurses.
Plan; Home with [facility] visiting nurses
[facility] [phone]
[2023-07-06 13:23] VITALS: BP 87/52; BP 96/62; PULSE 100; O2SAT 94
[2023-07-06] MEDS: PT'S OWN INSULIN PUMP - NovoLOG 25 UNIT SC (13:30)
--- NOTE | 2023-07-06 13:45 | W.PN.HOSP.TC ---
Addendum entered and electronically signed by Maximo Saeed MD 07/16/23 16:23:
Left Heel, Stage 2 Pressure Injury, POA
Original Note:
Today's Communication/Plan
-
dc
Assessment / Plan
Assessment / Plan
# Diabetic ketoacidosis secondary to malfunction of insulin pump. He was without his insulin pump for a week.
-Resolved DKA. Normalized lactic acid. Anion gap normalized.
-Seen by diabetic nurse practitioner now back on his insulin pump which is working.
# Paroxysmal atrial fibrillation with RVR on admission l
-Converted spontaneously
-Cardizem drip DC'd
-Continue to monitor heart rate
-EKG on arrival with a flutter with variable AV block, incomplete right bundle branch block, nonspecific ST and T wave abnormality
-Repeat EKG with sinus tachycardia, incomplete right bundle branch block
-Metoprolol continued twice a day
-Cardiology input noted.
-His anticoagulation was discontinued because of the hemorrhagic nature of his left pleural effusion.
# Elevated Trop likely demand ischemia
-Trop 0.080
-Trend troponin
-No complaints of chest pain
#Acute hypoxic respiratory insufficiency -resolved
-Patient was requiring 3 L of oxygen;currently on room air
- Possible multifactorial including lung cancer , may be lymphangitic spread in lung ;cards doesnt feel acute CHF component present
-chest CT with No evidence of central pulmonary embolism.Patient with history of left lung carcinoma with left lower lobe consolidation again identified. Placement of percutaneous left pleural catheter in the interval since recent prior study CT
(with accompanying air likely related to the catheter) with overall small volume decreased left pleural effusion. Cannot exclude some accompanying left pleural thickening.Slightly prominent pulmonary interstitial markings in the left lung, cannot
exclude some lymphangitic spread of tumor.Marked widespread bony metastatic disease again seen.
-chest x ray with Patient with known left lung malignancy again seen to contain opacification in the left chest at least in part representing pleural effusion and/or pleural thickening perhaps slightly increased in comparison to recent prior study.
-BNP 5300
-hold diuretics for now
#�hyponatremia
Initially when corrected to glucose was normal. Now hyponatremic despite improved blood sugars. urine lytes suggests SIADH possibly from his lung cancer. Continue with fluid restriction. Start on sodium tabs. Use Lasix every other day at home.
# Leukocytosis likely stress reaction
-WBC 14.9
-Afebrile
-Improved without abx tx
-Blood culture neg
-Continue to monitor
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
# Recurrent pleural effusion secondary to cancer-left Pleurx catheter in place-patient symptomatic with cough. IR to tap him again today.
# History of left lower lobe PE August 2021
# History of prostate cancer status post prostatectomy
# Coronary disease with history of CABG
Aspirin, metoprolol
# Hyperlipidemia-continue gemfibrozil, pravastatin
# Hypertension-blood pressure on lower side. I will DC further Norvasc and continue with metoprolol
# History of E. coli and Klebsiella bacteremia secondary to cholangitis
# Depression-Lexapro, trazodone
# GERD-PPI
# Ex-smoker
# DVT prophylaxis-
lovenox
Pt understands the changes in tx plan,medication and follow up plan.
Follwo BMP in a week
Follow with Endo as OP
Total time of discharge 32 minutes
Anticipated Discharge: Today
Subjective/Interval History
-
Date of Service: July 06, 2023
Feeling much better from cough and breathing standpoint after pleural drainage yesterday.
Also seen by diabetic nurse practitioner and was able to fix the calibration problem of his insulin pump which is currently on and running.
Objective Data
-
Vital Signs:
Vital Signs
Temp Pulse Resp BP Pulse Ox
98.8 F 107 16 88/51 97
07/06/23 11:10 07/06/23 11:10 07/06/23 11:10 07/06/23 11:10 07/06/23 11:10
I&O
07/05/23 07/06/23 07/07/23
06:59 06:59 06:59
Intake Total 480 / 480 360 / 360
Output Total 150 / 150
Balance 480 / 480 210 / 210
Review of Systems
-
Constitutional: Denies Fever
EENT: Denies Sore Throat
Abdomen/GI: Denies Abdominal Pain, Nausea or Vomiting
Neuro: Denies Dizzy
Physical Exam
-
General: No Apparent Distress
HEENT: Moist Mucous Membranes
Respiratory: Non Labored Respirations and Other (on RA); Negative Wheezes, Crackles or Accessory Resp Muscle Use
Cardiac: Regular Rhythm and S1/S2
GI: Soft and Nontender
Neuro: AO x 3
--- NOTE | 2023-07-06 13:52 | W.DS.TRANS ---
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
-
Discharge Instructions:
Sleep Apnea Risk Intermediate
Discharge Diagnosis/Procedures DKA sec to malfunctioning insulin pump. chronic
hyponatremia. metastatic lung cancer with
recurrent left pleural effusion; left Pleurx
catheter in place.
Diet Diabetic, Carb Controlled
Activity As tolerated
Driving Restrictions As prior to admission
Bathing Restrictions None
Blood Work BMP in mid week -slip given
Other Services VN,PT
Instructions:
Stand-Alone Forms:
Changes to Home Medications: Yes
Discharge Medications:
DC Medications w/original date entered in [employer]
metformin 500 mg tablet 1,000 mg PO BID Diabetes 06/12/20
trazodone 100 mg tablet 200 mg PO HS Sleep 08/31/21
aspirin 81 mg tablet,delayed release 81 mg PO DAILY Blood Clot Prevention/Tx 07/03/23
cetirizine 10 mg tablet 10 mg PO DAILY Allergies 07/03/23
cyclobenzaprine 10 mg tablet 10 mg PO DAILY AT 0700 Muscle Spasms 07/03/23
escitalopram oxalate 20 mg tablet 20 mg PO DAILY depression/anxiety 07/03/23
gabapentin 300 mg capsule 600 mg PO BID@0800,1700 pain 07/03/23
gabapentin 600 mg tablet 1,200 mg PO HS pain 07/03/23
gemfibrozil 600 mg tablet 600 mg PO DAILY High Cholesterol 07/03/23
meloxicam 15 mg tablet 15 mg PO DAILY pain 07/03/23
metoprolol tartrate 25 mg tablet 25 mg PO BID Blood Pressure 07/03/23
omeprazole 20 mg capsule,delayed release 20 mg PO DAILY Gastrointestinal Issue 07/03/23
pravastatin 40 mg tablet 40 mg PO HS high cholesterol 07/03/23
furosemide 20 mg tablet (Lasix) 20 mg PO Q OTHER DAY #20 tabs 07/05/23
sodium chloride 1,000 mg soluble tablet 1,000 mg PO DAILY #30 tabs 07/05/23
Pt's Own Ins. Pump Aspart [PT'S OWN INSULIN PUMP - NovoLOG] See Rx Instructions .Route .COMPLEX #1 insert 07/06/23
Home Medication Changes
New medication-sodium chloride tablet, Lasix every other day
Pending Results: No
--- NOTE | 2023-07-06 14:54 | PN.CDI ---
CDI
- -
CDI:
Physician Documentation Request
Admit Date: 07/03/23 15:19
Dear Doctor Christophe,
Clinical Indicators:
Patient admitted with diabetic ketoacidosis secondary to malfunction of insulin pump.
07/05 WOC RN skin/wound assessment: Left Heel, Stage 2 Pressure Injury, POA
Treatment: Silicone border foam dressing
Physician documentation of the type and location of wounds is required for compliant documentation. Based on the above clinical findings and your assessment, please provide the following in your progress note:
1. Location of the ulcer/wound, including laterality.
2. Type (etiology) of ulcer/wound:
- Pressure (decubitus) ulcer
- Other, please specify
3. If a pressure ulcer, please also include the stage* of the ulcer:
- Stage 1 - Skin intact, non-blanchable redness
- Stage 2 - Partial thickness loss of dermis, includes intact or open blister
- Stage 3 - Full thickness tissue not including bone, tendon or muscle
- Stage 4 - Full thickness tissue loss, including exposed bone, tendon or muscle
- Unstageable - Full thickness loss in which the base of the ulcer is covered by slough (yellow, abbasi, pop, green or brown) and/or eschar (abbasi, brown or black) in the wound bed.
- Unable to determine
Use of terms such as suspected, likely, concern for, or probable (associated with a specific diagnosis that is being evaluated, monitored, or treated as if it exists) are acceptable and can be coded in the inpatient setting, when documented at the
time of discharge.
Thank you,
JESI Causey RN
CDI Specialist
available via tiger text
Please use your independent medical judgment in providing your response.
*Source: National Pressure Ulcer Advisory Panel (NPUAP)
[2023-07-06 15:57] VITALS: BP 80/50
--- NOTE | 2023-07-20 14:27 | W.DCSUMMARY ---
Discharge Summary
Discharge Data
Date of Admission: 07/03/23
Date of Discharge: 07/06/23
-
Pending Results: No
Hospital Course
primary diagnosis:
Diabetic ketoacidosis secondary to malfunctioning insulin pump
Secondary diagnosis:
Metastatic adenocarcinoma of the lung
Recurrent pleural effusion with left Pleurx catheter in place
Paroxysmal atrial fibrillation
Elevated troponins likely secondary demand ischemia
Acute transient hypoxic respiratory insufficiency
HyponatremiaSuspect from lung cancer
history of pulm embolism
History of prostate cancer status post prostatectomy
Coronary disease status post prior coronary bypass surgery
Hyperlipidemia
Essential Hypertension
Hospital course:
Patient with stage IV lung cancer presented with weakness, palpitation or shortness of breath. He was noted to be in DKA. His insulin pump was not working for a week and he did not choose an alternative for his diabetes mellitus management. He
was without any treatments for a week. He has been diabetic for 15 years and was using a pump for long. He had a new machine of same brand 3 weeks ago but there was issue with calibration. With resumption of insulin treatment his DKA resolved.
He was seen by diabetic nurse educator who calibrated the machine for him.
He has a history of paroxysmal atrial fibrillation with RVR which converted spontaneously. Was seen by cardiology. He was maintained on rate control medication including beta-oscar. No anticoagulation because of hemorrhagic nature of his left
pleural effusion.
There was a transient hypoxia which also resolved with chest CT showed no evidence of PE. He has left lung cancer and there was left lower lobe consolidation again identified. He had a left Pleurx catheter and gets regular drainage at home. He
had 1 prior to coming to the hospital and he had again drained in the hospital. His hypoxia resolved after pleural fluid drainage.
He has chronic hyponatremia issues from pulmonary cancer. Sodium tablets was started on this admission. He was advised fluid restriction and Lasix every other day.
He follows with [facility] cancer team and plan is to follow with them as planned after discharge
Consultants on board:
Cardiology Dr Mcdonald,P
Discharge Plan
-
Patient Disposition: Home with Home Care
Discharge Diagnosis/Procedures: DKA sec to malfunctioning insulin pump. chronic hyponatremia. metastatic lung cancer with recurrent left pleural effusion; left Pleurx catheter in place.
Diet: Diabetic, Carb Controlled
Activity: As tolerated
Driving Restrictions: As prior to admission
Bathing Restrictions: None
Blood Work: BMP in mid week -slip given
Other Services: VN and PT
Activity Restrictions/Additional Instructions:
Wound Care Instructions
Mineral oil to dry skin on legs and feet daily
L foot/heel: clean with soap and water, dry dressing change daily until further orders from Podiatry.
Air cushion on pillow under calves can take upon discharge
air cushion when sitting
Follow up with [facility] as scheduled.
Referrals:
Tamanna Schmitt MD [Family Provider] - in less than 1 week
Prescriptions:
New
sodium chloride 1,000 mg tablet,soluble
1,000 mg PO DAILY Qty: 30 0RF
furosemide [Lasix] 20 mg tablet
20 mg PO Q OTHER DAY Qty: 20 0RF
Pt's Own Ins. Pump Aspart [Pt's Own Insulin Pump - Novolog]
See Rx Instructions .ROUTE .COMPLEX Qty: 1 0RF
Rx Instructions:
Use patient's own insulin pump, patient using novolog insulin
Continued
metformin 500 MG tablet
1,000 mg PO BID
trazodone 100 MG tablet
200 mg PO HS
escitalopram oxalate 20 mg Tablet
20 mg PO DAILY
cyclobenzaprine 10 mg Tablet
10 mg PO DAILY
gabapentin 600 mg Tablet
1,200 mg PO HS
cetirizine 10 mg Tablet
10 mg PO DAILY
pravastatin 40 mg Tablet
40 mg PO HS
meloxicam 15 mg Tablet
15 mg PO DAILY
aspirin 81 mg Tablet,Delayed Release (Dr/Ec)
81 mg PO DAILY
gabapentin 300 mg Capsule
600 mg PO BID@0800,1700
omeprazole 20 mg Capsule,Delayed Release(Dr/Ec)
20 mg PO DAILY
metoprolol tartrate 25 mg Tablet
25 mg PO BID
Discontinued
amlodipine 5 mg Tablet
7.5 mg PO DAILY
No Action
tramadol 50 mg Tablet
50 mg PO Q6HPRN PRN (Reason: moderate pains)
docusate sodium [Colace] 100 mg Capsule
100 mg PO BID
enoxaparin [Lovenox] 100 mg/mL Syringe
105 mg SC DAILY
Patient Comments:
using the va
tepotinib 225 mg Tablet
225 mg PO HS
Discharge Orders:
Discharge Patient (As Directed); Ordered 07/06/23
Ordered By: Maximo Saeed
Discharge Date and Time
Discharge Date/Time: 07/06/23 16:23
Print Language: GUYANESE
== END 2023-07-06 16:23 | disposition home health service (06) | DRG 919 ==
LOC: 4 WEST ACU 15:19
PROVIDERS: Nurse Practitioner Gerontology; Physician Assistant; Registered Nurse; ADMITTING PHYSICIAN Internal Medicine; CONSULT PHYSICIAN Internal Medicine Cardiovascular Disease; EMERGENCY PHYSICIAN Emergency Medicine; FAMILY PHYSICIAN Internal Medicine
DX: T85.614A Breakdown (mechanical) of insulin pump, initial encounter (principal); E11.10 Type 2 diabetes mellitus with ketoacidosis without coma; J96.01 Acute respiratory failure with hypoxia; C34.92 Malignant neoplasm of unspecified part of left bronchus or lung; C79.51 Secondary malignant neoplasm of bone; I24.89 Other forms of acute ischemic heart disease; I48.0 Paroxysmal atrial fibrillation; E11.40 Type 2 diabetes mellitus with diabetic neuropathy, unspecified; Z79.01 Long term (current) use of anticoagulants; E88.09 Other disorders of plasma-protein metabolism, not elsewhere classified; Z85.118 Personal history of other malignant neoplasm of bronchus and lung; E78.00 Pure hypercholesterolemia, unspecified; I11.0 Hypertensive heart disease with heart failure; I50.9 Heart failure, unspecified; F32.A Depression, unspecified; F41.9 Anxiety disorder, unspecified; K21.9 Gastro-esophageal reflux disease without esophagitis; Z87.891 Personal history of nicotine dependence; Y74.2 Prosthetic and other implants, materials and accessory general hospital and personal-use devices associated with adverse incidents; Z79.82 Long term (current) use of aspirin; Z79.4 Long term (current) use of insulin; L89.622 Pressure ulcer of left heel, stage 2
CPT/HCPCS: 93308; 71045; 71275; 80048; 80053; 82010; 82805; 82947; 82962; 83605; 83880; 83935; 84300; 84484; 85025; 85027; 85610; 87040; 93005; 93321; 93325; 96361; 96365; 96375; 96376; 97116; 97162; 97530; 99291; Q9967

== ENCOUNTER 2023-07-16 17:27 | Emergency (ER) | payer OTHER, MEDICARE, SELFPAY ==
[2023-07-16 17:34] VITALS: BP 110/74
[2023-07-16 17:55] VITALS: BP 107/65
[2023-07-16 17:56] VITALS: BMI 21.3
[2023-07-16 18:00] VITALS: BP 106/73
[2023-07-16 19:00] VITALS: BP 101/76
--- NOTE | 2023-07-16 19:07 | ED.GENMED ---
History of Present Illness
General
Chief Complaint: Breathing Problem
Time Seen by Provider: 07/16/23 19:07
Travel History
Have you had any contact with someone who has COVID-19?: No
Do you have any symptoms of coronavirus? Fever > 100 degrees, chills, cough, shortness of breath, sore throat, loss of taste or smell, muscle aches, or headache?: No
History of Present Illness
History of Present Illness:
HPI: Today, the patient had his left Pleurx catheter drained� reports that about 250 mL of fluid was removed. He had a follow-up visit with the primary care doctor who wanted to check a chest x-ray that showed there is still pleural fluid and
was sent here for further evaluation. He states the pleural catheter was placed at [facility], and he is going to start seeing [facility] this coming week for the first time. He was diagnosed with lung cancer 2 years ago and has been
taking oral chemo but had no surgery (other than Pleurx catheter placement) or radiation. He reports a dry mouth but no significant shortness of breath.
EXAM:
GENERAL: The patient appears somewhat chronically ill, occasional cough
HEENT: Very dry oral mucosa
CARDIOVASCULAR: No murmurs, tachycardic heart rate, regular rhythm, No chest wall tenderness
PULMONARY: No respiratory distress, breath sounds somewhat decreased on the right and very decreased on the left
ABDOMEN: Soft with no peritoneal signs, no tenderness
NEUROLOGIC: Good strength all extremities, no coordination deficits, mild dysarthria is noted but patient states that is because he is because he has a dry mouth and that he has sounded like this in the past
PSYCHIATRIC: Appropriate mental status, normal insight and judgement
EXTREMITIES: Nontender, trace bilateral lower extremity edema, moves all extremities equally
SKIN: No rash, no lesions
TIME OF INITIAL ENCOUNTER: 7:15 PM
NUMBER AND COMPLEXITY OF PROBLEMS ADDRESSED AT THE ENCOUNTER
� Chronic conditions affecting care: A-fib, lung cancer, CAD/CABG, high blood pressure, hyperlipidemia, IDDM, prostate cancer status post prostatectomy
� Acute Exacerbation and/or Progression of Chronic Illness: This is an acute but recurring problem
� Differential Diagnosis includes: Recurrence of left pleural fluid, worsening lung malignancy, CHF
AMOUNT AND/OR COMPLEXITY OF DATA TO BE REVIEWED AND ANALYZED
� I performed an independent evaluation of and my interpretation is:
EKG: Sinus 107, QTc measured by the computer was 651 ms
CT: I personally viewed CT imaging which shows hydropneumothorax
X-rays:
Laboratory Studies: White count is elevated, BNP is 10 which is less than prior, troponin negative, sodium 130 count is high at 15.9
Other:
� Review of other/old records: I reviewed old pulmonary notes including old CT imaging
� Clinical information was obtained by an independent historian: I spoke to the at bedside
� Prescriptions/Medications Considered but not given:
� Further testing considered but not performed:
RISK OF COMPLICATIONS AND/OR MORBIDITY OR MORTALITY OF PATIENT MANAGEMENT
� Social determinants of health affecting care: Lives at home
� Discussion with other providers:I discussed hydropneumothorax and shared the CT with Dr. Urbano that she does not feel that anything else needs to be done at this time.
� Escalation of care including admission/observation vs risk of discharge considered: The patient has virtually no symptoms other than a cough and is eager to go home. He states that he does not feel that he needs to be here.
He will be following up with Spencer Ashley. I have also given him the contact information for pulmonary here as he says he does not have a lung doctor. He was borderline hypotensive and tachycardic and his mouth appeared very dry�he was given IV
fluids prior to discharge.
Past History
Past History
ED Past Medical History: Arrthythmia (Paroxysmal atrial fibrillation), CAD, Cancer (Prostate; adenocarcinoma of the lung diagnosed August 2021), HTN, Hypercholesterolemia and IDDM
ED Past Surgical History: Cardiac (CABG 2020) and Urological (Prostatectomy, urethral cuff)
Social History
Tobacco: Non-smoker
Alcohol: None
Drug: None
Personal:
Living: with family
Employment: Retired
Family History
Family History: Other (Noncontributory)
Phy Exam
Physical Exam
Physical Exam:
See HPI
Scores
Heart Failure Risk
Heart Failure Risk Score: Not Applicable
Course
Orders/Labs/Results
Orders:
Orders
07/16/23 17:40
Electrocardiogram (*1) Urgent
Reason for Study: Shortness of Breath
EKG- Treatment ONCE
07/16/23 19:14
CT Chest W/o Iv Contrast Urgent
Comment:
Reason For Exam: increased L pleural fluid on cxr as outpt / [facility]
0.9% Sodium Chloride 500 ml [Nss] 500 ml IV BOLUS
07/16/23 19:[address] Non Medication Order As Directed
Physician Order: Please drain left pleural catheter
Above order entered?: Yes
07/16/23 19:22
Basic Metabolic Panel Urgent
Complete Blood Count/With Diff Urgent
NT-proBNP Urgent
Troponin I Urgent
07/16/23 20:04
Body Fluid Cell Count Urgent
What is the Body Fluid: left pleural fluid
Date Specimen was Collected: 07/16/23
Time Specimen was Collected: 20:02
Fluid Culture with Gram Stain Urgent
ÁLVARO Source: Chest Fluid
Specimen Description:
Date Specimen was Collected: 07/16/23
Time Specimen was Collected: 20:02
Abnormal Lab Results
07/16/23
19:22
WBC 15.9 H 10^3/uL
(4.8-10.8)
RDW 16.2 H %
(11.5-14.5)
Abs Immat Gran (auto) 0.2 H 10^3/uL
(0-0.05)
Absolute Neuts (auto) 13.0 H 10^3/uL
(1.4-6.5)
Absolute Monos (auto) 0.9 H 10^3/uL
(0.1-0.6)
Immature Gran % 0.9 H %
(0-0.5)
Neutrophils % 81.5 H %
(42.2-75.2)
Lymphocytes % 10.2 L %
(20.5-51.1)
Sodium 130 L mmol/L
(135-145)
Chloride 96 L mmol/L
(98-107)
BUN 24 H mg/dl
(9-20)
Glucose 110 H mg/dl
(70-99)
Calcium 8.3 L mg/dl
(8.4-10.2)
07/16/23 19:22
07/16/23 19:22
Vital Signs
Initial and Last Documented VS:
Initial Vital Signs
Temp Pulse Resp BP Pulse Ox
98.5 F 51 22 110/74 92
07/16/23 17:34 07/16/23 17:34 07/16/23 17:34 07/16/23 17:34 07/16/23 17:34
Last Documented Vital Signs
Temp Pulse Resp BP Pulse Ox
98.5 F 109 28 101/76 91
07/16/23 17:34 07/16/23 20:00 07/16/23 20:00 07/16/23 19:00 07/16/23 19:00
*Critical Care Note
Total Time (30-74mins, 75-104mins- exclusive of procedures): Not Applicable
ED Attending Note
-
Portions of this chart may have been created with voice recognition software.� Occasional wrong word or��sound alike� substitutions may have occurred due to the inherent limitations of voice recognition software.
Discharge Plan
Departure
Patient Disposition: Home (Routine Discharge)
Date of Disposition: 07/16/23
Time of Disposition: 20:52
Patient with high blood pressure during this ER visit?: Yes
Discharge Problem:
Hydropneumothorax
Prescriptions:
No Action
metformin 500 MG tablet
1,000 mg PO BID
trazodone 100 MG tablet
200 mg PO HS
escitalopram oxalate 20 mg Tablet
20 mg PO DAILY
cyclobenzaprine 10 mg Tablet
10 mg PO DAILY
gabapentin 600 mg Tablet
1,200 mg PO HS
cetirizine 10 mg Tablet
10 mg PO DAILY
pravastatin 40 mg Tablet
40 mg PO HS
meloxicam 15 mg Tablet
15 mg PO DAILY
aspirin 81 mg Tablet,Delayed Release (Dr/Ec)
81 mg PO DAILY
gabapentin 300 mg Capsule
600 mg PO BID@0800,1700
omeprazole 20 mg Capsule,Delayed Release(Dr/Ec)
20 mg PO DAILY
metoprolol tartrate 25 mg Tablet
25 mg PO BID
sodium chloride 1,000 mg tablet,soluble
1,000 mg PO DAILY Qty: 30 0RF
furosemide [Lasix] 20 mg tablet
20 mg PO Q OTHER DAY Qty: 20 0RF
Pt's Own Ins. Pump Aspart [Pt's Own Insulin Pump - Novolog]
See Rx Instructions .ROUTE .COMPLEX Qty: 1 0RF
Rx Instructions:
Use patient's own insulin pump, patient using novolog insulin
tramadol 50 mg Tablet
50 mg PO Q6HPRN PRN (Reason: moderate pains)
docusate sodium [Colace] 100 mg Capsule
100 mg PO BID
enoxaparin [Lovenox] 100 mg/mL Syringe
105 mg SC DAILY
Patient Comments:
using the va
tepotinib 225 mg Tablet
225 mg PO HS
Referrals:
Urbano-Beltran,Charles, MD [Active] - Follow up in 2-3 days
Tamanna Schmitt MD [Family Provider] -
Activity Restrictions/Additional Instructions:
Since you said you do not have a harness builder, I have given you the contact information for the harness builder I spoke to devyn�you saw this person in May. Take the disc of the CAT scan with you. It shows a 'hydropneumothorax'. Your nurses
should continue the drainage as they have been doing. Return here if you develop symptoms. The cardiac blood test that we do looking for signs of heart failure is actually better today than it was last month. We did use some IV fluids before he
left as you appeared somewhat dehydrated.
Interventions
Interventions:
*Risk Screen - Suicide Last Done: 07/16/23 17:38
*General Assessment Last Done: 07/16/23 17:38
*Neglect/Abuse Screening Last Done: 07/16/23 17:38
ED- Fall Risk Assessment Last Done: 07/16/23 18:00
*ED COVID-19 Vaccine History Last Done: 07/16/23 18:00
ED- Cardiac Assessment Last Done: 07/16/23 18:00
ED- Pulmonary Assessment Last Done: 07/16/23 18:00
Discharge Date and Time
Print Language: ECUADOREAN
[2023-07-16 19:28] LABS: % Basophils 0.4 % (0-2); % Eosinophils 1.5 % (0-6); % Immature Granulocytes 0.9 % (0-0.5); % Lymphocytes 10.2 % (20.5-51.1); % Monocytes 5.5 % (1.7-9.3); % Neutrophils 81.5 % (42.2-75.2); Absolute Basophils 0.1 10^3/uL (0-0.2); Absolute Eosinophils 0.2 10^3/uL (0-0.7); Absolute Immature Granulocytes 0.2 10^3/uL (0-0.05); Absolute Lymphocytes 1.6 10^3/uL (1.2-3.4); Absolute Monocytes 0.9 10^3/uL (0.1-0.6); Hematocrit 40.7 % (39.0-52.0); Hemoglobin 13.5 g/dL (13.0-18.0); Mean Corp Hgb Conc. 33.2 g/dL (33.0-37.0); Mean Corpuscular Hgb 28.7 pg (27.0-31.0); Mean Corpuscular Volume 86.6 fL (80.0-94.0); Mean Platelet Volume 9.2 fL (7.4-10.4); Nucleated Red Blood Cells % 0 % (-); Platelet Count 261 10^3/uL (130-400); Red Cell Dist. Width 16.2 % (11.5-14.5); White Blood Cell Count 15.9 10^3/uL (4.8-10.8)
[2023-07-16 19:47] LABS: Blood Urea Nitrogen 24 mg/dl (9-20); Calcium 8.3 mg/dl (8.4-10.2); Carbon Dioxide 24 mmol/L (22-30); Chloride 96 mmol/L (98-107); Estimated Creatinine Clearance 49 ml/min; Glucose 110 mg/dl (70-99); Sodium 130 mmol/L (135-145); eGFR 58.01
[2023-07-16 19:50] LABS: NT-proBNP 1210 pg/ml; Troponin I < 0.012 ng/ml
[2023-07-16 20:05] VITALS: BP 91/71
[2023-07-16 20:18] LABS: Body Fluid Mononuclear 43.7 %; Body Fluid Polymorphonuclear 56.3 %; Body Fluid WBC 55 /CUMM
[2023-07-16 20:27] LABS: Body Fluid Second Tech DB
[2023-07-16] MEDS: NSS 500 IV (20:41)
[2023-07-16 21:00] VITALS: BP 106/63
== END 2023-07-16 21:53 | disposition home or self-care (01) ==
LOC: EMR 17:27
PROVIDERS: EMERGENCY PHYSICIAN Emergency Medicine; FAMILY PHYSICIAN Internal Medicine
DX: J94.8 Other specified pleural conditions (principal); I10 Essential (primary) hypertension
CPT/HCPCS: 99284; 96360; 71250; 80048; 83880; 84484; 85025; 87015; 87070; 87205; 89051; 93005

== ENCOUNTER 2023-07-20 14:44 | Inpatient (IN) | payer MEDICARE, OTHER, SELFPAY ==
[2023-07-20] VITALS (18 sets, daily range): BP systolic 92–129; BP diastolic 56–87; BMI 21.2
[2023-07-20 12:11] LABS: % Basophils 0.4 % (0-2); % Eosinophils 0.3 % (0-6); % Immature Granulocytes 0.8 % (0-0.5); % Lymphocytes 3.2 % (20.5-51.1); % Monocytes 3.3 % (1.7-9.3); Absolute Basophils 0.1 10^3/uL (0-0.2); Absolute Eosinophils 0.1 10^3/uL (0-0.7); Absolute Immature Granulocytes 0.1 10^3/uL (0-0.05); Absolute Lymphocytes 0.5 10^3/uL (1.2-3.4); Absolute Monocytes 0.5 10^3/uL (0.1-0.6); Absolute Neutrophils 15.3 10^3/uL (1.4-6.5); Hematocrit 39.1 % (39.0-52.0); Hemoglobin 13.2 g/dL (13.0-18.0); Mean Corp Hgb Conc. 33.8 g/dL (33.0-37.0); Mean Corpuscular Hgb 29.1 pg (27.0-31.0); Mean Corpuscular Volume 86.3 fL (80.0-94.0); Mean Platelet Volume 9.5 fL (7.4-10.4); Nucleated Red Blood Cells % 0 % (-); Platelet Count 260 10^3/uL (130-400); Red Blood Cell Count 4.53 10^6/uL (4.70-6.10); Red Cell Dist. Width 16.5 % (11.5-14.5); White Blood Cell Count 16.6 10^3/uL (4.8-10.8)
[2023-07-20 12:23] LABS: ALT (SGPT) 24 U/L (0-50); AST (SGOT) 23 U/L (17-59); Albumin 2.1 g/dl (3.5-5.0); Alkaline Phosphatase 158 U/L (38-126); Blood Urea Nitrogen 24 mg/dl (9-20); Calcium 8.1 mg/dl (8.4-10.2); Carbon Dioxide 21 mmol/L (22-30); Chloride 95 mmol/L (98-107); Glucose 239 mg/dl (70-99); Potassium 5.1 mmol/L (3.5-5.1); Sodium 128 mmol/L (135-145); Total Bilirubin 0.7 mg/dl (0.2-1.3); Total Protein 5.1 g/dl (6.3-8.2); eGFR 58.01
[2023-07-20 12:24] LABS: INR 1.34; PT 16.4 Sec (11.4-14.6)
[2023-07-20 12:25] LABS: APTT 34.3 Sec (23.4-35.0)
[2023-07-20 12:34] LABS: Troponin I 0.016 ng/ml
[2023-07-20] MEDS: NSS 1000 IV (12:41)
[2023-07-20 13:07] LABS: Lactic Acid 4.3 mmol/L (0.7-2.0)
--- NOTE | 2023-07-20 13:14 | ED.GENMED ---
History of Present Illness
General
Chief Complaint: Breathing Problem
Source: patient and spouse
Exam Limitations: none
Time Seen by Provider: 07/20/23 11:58
Travel History
Have you had any contact with someone who has COVID-19?: No
Do you have any symptoms of coronavirus? Fever > 100 degrees, chills, cough, shortness of breath, sore throat, loss of taste or smell, muscle aches, or headache?: No
History of Present Illness
History of Present Illness:
72-year-old male with a history of metastatic lung cancer who was supposed to have a visit with Spencer Ashley today. The patient has Pleurx catheter in his left chest wall. The patient states that starting yesterday he has had difficulty breathing.
Also has been coughing. No noted fevers. Does feel better when oxygen applied in the emergency department.
Past History
Past History
ED Past Medical History: Arrthythmia (Paroxysmal atrial fibrillation), CAD, Cancer (Prostate; adenocarcinoma of the lung diagnosed August 2021), HTN, Hypercholesterolemia, IDDM and Other (Hemorrhagic pleural effusion)
ED Past Surgical History: Cardiac (CABG 2020) and Urological (Prostatectomy, urethral cuff)
Social History
Tobacco: Non-smoker
Alcohol: None
Drug: None
Personal:
Living: with family
Employment: Retired
Family History
Family History: Other (Noncontributory)
Phy Exam
Physical Exam
Physical Exam:
CONSTITUTIONAL Patient alert and oriented to person, place and time. ill-appearing. Vital signs reviewed.
HEAD atraumatic, normocephalic.
EYES eyelids normal to inspection, Pupils equally round and reactive to light, Extraocular muscles intact, Conjunctiva normal, Sclera normal.
NECK normal range of motion, Trachea midline, no jugular venous distention.
RESPIRATORY CHEST moderate respiratory distress noted, Chest expansion equal, diminished at bilateral bases. Diminished left-sided lung sounds. Scattered crackles. Left-sided catheter intact
CARDIOVASCULAR regular and tachycardic
ABDOMEN abdomen nontender, Bowel sounds normal. No distention.
UPPER EXTREMITY range of motion normal, Motor strength normal, cyanotic nailbeds bilaterally, no edema.
LOWER EXTREMITY range of motion normal, Motor strength normal, no edema.
NEURO Speech normal, No focal motor deficits, Bud coma scale 15, Memory normal, Cranial Nerves intact to screening exam.
SKIN skin warm, dry, and normal in color.
PSYCHIATRIC patient oriented to person place and time, Normal affect.
Scores
Heart Failure Risk
Heart Failure Risk Score: Not Applicable
Course
Orders/Labs/Results
Orders:
Orders
07/20/23 11:46
Electrocardiogram (*1) Urgent
Reason for Study: QTc Monitoring
07/20/23 11:47
EKG- Treatment ONCE
07/20/23 11:49
Comprehensive Metabolic Panel Urgent
07/20/23 11:51
Complete Blood Count/With Diff Urgent
Troponin I Urgent
07/20/23 11:56
Protime/PTT Urgent
07/20/23 12:01
CR Chest Portable - 1 View Urgent
Comment:
Reason For Exam: pain, sob
Reason Study Needs to be Portable: Unable to Transport
07/20/23 12:33
0.9% Sodium Chloride 1000 ml [Nss] 1,000 ml IV BOLUS
07/20/23 12:39
Lactic Acid Q4H
Comment: CANCEL 2nd LACTIC ACID IF 1st LACTIC ACID IS LESS THAN 2
Blood Culture Q30M
ÁLVARO Source: Blood/Venous
Specimen Description:
Blood Culture Q30M
ÁLVARO Source: Blood/Venous
Specimen Description:
07/20/23 13:12
0.9% Sodium Chloride 1000 ml [Nss] 2,100 ml IV NOW STA
Piperacillin/Tazo 3.375 Gram [Zosyn] 3.375 gram in 50 ml IV NOW
07/20/23 13:28
Vancomycin [Vancocin] 1,500 mg 0.9% Sodium Chloride [Nss] 20 ml 0.9% Sodium Chloride 250 ml [Nss] 250 ml IV NOW
07/20/23 16:45
Lactic Acid Q4H
Comment: CANCEL 2nd LACTIC ACID IF 1st LACTIC ACID IS LESS THAN 2
Abnormal Lab Results
07/20/23 07/20/23 07/20/23
11:49 11:51 11:56
WBC 16.6 H 10^3/uL
(4.8-10.8)
RBC 4.53 L 10^6/uL
(4.70-6.10)
RDW 16.5 H %
(11.5-14.5)
Abs Immat Gran (auto) 0.1 H 10^3/uL
(0-0.05)
Absolute Neuts (auto) 15.3 H 10^3/uL
(1.4-6.5)
Absolute Lymphs (auto) 0.5 L 10^3/uL
(1.2-3.4)
Immature Gran % 0.8 H %
(0-0.5)
Neutrophils % 92.0 H %
(42.2-75.2)
Lymphocytes % 3.2 L %
(20.5-51.1)
PT 16.4 H Sec
(11.4-14.6)
Sodium 128 L mmol/L
(135-145)
Chloride 95 L mmol/L
(98-107)
Carbon Dioxide 21 L mmol/L
(22-30)
BUN 24 H mg/dl
(9-20)
Glucose 239 H mg/dl
(70-99)
Lactic Acid
Calcium 8.1 L mg/dl
(8.4-10.2)
Alkaline Phosphatase 158 H U/L
(38-126)
Total Protein 5.1 L g/dl
(6.3-8.2)
Albumin 2.1 L g/dl
(3.5-5.0)
07/20/23
12:39
WBC
RBC
RDW
Abs Immat Gran (auto)
Absolute Neuts (auto)
Absolute Lymphs (auto)
Immature Gran %
Neutrophils %
Lymphocytes %
PT
Sodium
Chloride
Carbon Dioxide
BUN
Glucose
Lactic Acid 4.3 H* mmol/L
(0.7-2.0)
Calcium
Alkaline Phosphatase
Total Protein
Albumin
07/20/23 11:51
07/20/23 11:49
Vital Signs
Initial and Last Documented VS:
Initial Vital Signs
Temp Pulse Resp BP Pulse Ox
97.7 F 129 26 93/66 98
07/20/23 11:39 07/20/23 11:39 07/20/23 11:39 07/20/23 11:39 07/20/23 11:39
Last Documented Vital Signs
Temp Pulse Resp BP Pulse Ox
97.7 F 123 26 107/76 99
07/20/23 11:39 07/20/23 13:30 07/20/23 13:30 07/20/23 13:00 07/20/23 13:30
MDM/Problems Addressed
MDM/Problems Addressed:
Sepsis, lactic acidosis, pneumonia, metastatic lung cancer, long QT
*Radiology
Radiology exam reviewed: preliminary read by ED provider (L PTX) and radiology read reviewed
*Pulse Oximetry
Patient hypoxic: yes
*EKG
Interpreted by ED Provider?: Yes
Interpretation: abnormal
Rate: tachycardiac
Rhythm: sinus
[place]: normal axis
Interval: long QT
QRS Pattern: other (incomplete RBBB)
Ischemia: non-specific ST changes
*Facilities Flight Check Pilot Interpretation
Rate: tachycardiac
Interpretation: abnormal
Rhythm: sinus
*Critical Care Note
Total Time (30-74mins, 75-104mins- exclusive of procedures): 50 minutes
Data Reviewed
Review of Other/Old Records Reveals: Labs, Radiology Studies (Previous CT scan report reviewed) and Discharge Summary (Recent discharge summary reviewed)
Source: patient and significant other
Further Testing Considered But Not Given:
Consider CTA but recently had a CTA and is already on Lovenox
Patient Management
Discussion with other providers: Hospitalist
Escalation/DeEscalation of care consider admission/obs:
72-year-old male who presents with shortness of breath and cough. Unfortunate history of metastatic disease. Stage IV lung cancer. Now with increasing white count. Lactic acidosis that is worse. Radiology report some possible infiltrative
process suspicious for sepsis and pneumonia. IV fluids. IV antibiotics. Admit
ED Attending Note
-
Portions of this chart may have been created with voice recognition software.� Occasional wrong word or��sound alike� substitutions may have occurred due to the inherent limitations of voice recognition software.
Discharge Plan
Departure
Patient Disposition: Admit
Date of Disposition: 07/20/23
Time of Disposition: 13:14
Admit to: IMU
Presentation/result/management discussed w/ accepting MD/DO: Hospitalist
Discharge Problem:
Sepsis, Pneumonia, Metastatic cancer to lung
Prescriptions:
No Action
metformin 500 MG tablet
1,000 mg PO BID
trazodone 100 MG tablet
200 mg PO HS
escitalopram oxalate 20 mg Tablet
20 mg PO DAILY
cyclobenzaprine 10 mg Tablet
10 mg PO DAILY
gabapentin 600 mg Tablet
1,200 mg PO HS
cetirizine 10 mg Tablet
10 mg PO DAILY
pravastatin 40 mg Tablet
40 mg PO HS
meloxicam 15 mg Tablet
15 mg PO DAILY
aspirin 81 mg Tablet,Delayed Release (Dr/Ec)
81 mg PO DAILY
gabapentin 300 mg Capsule
600 mg PO BID@0800,1700
omeprazole 20 mg Capsule,Delayed Release(Dr/Ec)
20 mg PO DAILY
metoprolol tartrate 25 mg Tablet
25 mg PO BID
sodium chloride 1,000 mg tablet,soluble
1,000 mg PO DAILY Qty: 30 0RF
furosemide [Lasix] 20 mg tablet
20 mg PO Q OTHER DAY Qty: 20 0RF
Pt's Own Ins. Pump Aspart [Pt's Own Insulin Pump - Novolog]
See Rx Instructions .ROUTE .COMPLEX Qty: 1 0RF
Rx Instructions:
Use patient's own insulin pump, patient using novolog insulin
tramadol 50 mg Tablet
50 mg PO Q6HPRN PRN (Reason: moderate pains)
docusate sodium [Colace] 100 mg Capsule
100 mg PO BID
enoxaparin [Lovenox] 100 mg/mL Syringe
105 mg SC DAILY
Patient Comments:
using the va
tepotinib 225 mg Tablet
225 mg PO HS
Referrals:
Tamanna Schmitt MD [Family Provider] -
Interventions
Interventions:
*Risk Screen - Suicide Last Done: 07/20/23 11:39
*General Assessment Last Done: 07/20/23 12:45
*Neglect/Abuse Screening Last Done: 07/20/23 12:45
ED- Fall Risk Assessment Last Done: 07/20/23 12:45
ED- Cardiac Assessment Last Done: 07/20/23 12:45
ED- Pulmonary Assessment Last Done: 07/20/23 12:45
Discharge Date and Time
Print Language: SWEDISH
[2023-07-20] MEDS: ZOSYN 50 IV (13:18)
[2023-07-20] MEDS: VANCOCIN 300 MG IV (13:53)
[2023-07-20] MEDS: VANCOCIN 300 ML IV (13:53)
--- NOTE | 2023-07-20 14:09 | HPS.HSE ---
Family Physician
-
Family Physician: Tamanna Schmitt
Chief Complaint
-
trouble breathing
History of Present Illness
Patient is a 72-year-old male who was just hospitalized here for insulin pump malfunction who was supposed to see [facility] for an appointment today. He has a history of metastatic lung cancer. Visiting nurses came in to drain his
pleural fluid from his catheter. 350 mL was removed. Unfortunately, patient continues to have shortness of breath and pulse ox was 60% at home. Patient does not wear home oxygen. He was brought in for evaluation and treatment. Workup here finds
him to have right lower lobe pneumonia. Patient is being admitted.
Medical History
Past Medical History
Past Medical History: Reports Other
Additional Past Medical History:
Metastatic lung cancer
Paroxysmal atrial fibrillation
Coronary artery disease
Prostate cancer
Essential hypertension
Hyperlipidemia
Type 2 diabetes with insulin pump
Syndrome of inappropriate ADH secretion
Hyperlipidemia
Essential hypertension
Past Surgical History: Reports Other
Additional Past Surgical History:
Coronary artery bypass grafting in 2020
Prostatectomy with urethral cuff
Social History
Tobacco: Former Smoker (Patient quit in his 20s)
Alcohol: None
Drug: None
Personal:
Living: With Family
Family History
Family History: Not pertinent
Allergies / Home Medications
Allergies reflects when Allergies were last updated in [facility].
Home Medications with original date entered in [facility]
Allergy/Medication List:
Allergies
Allergy/AdvReac Type Severity Reaction Status Date / Time
house dust mite Allergy Itching Verified 07/16/23 17:33
lisinopril Allergy COUGH Verified 07/16/23 17:33
pentazocine [From [facility]win] Allergy PARALYZED Verified 07/16/23 17:33
Home Medications
metformin 500 mg tablet 1,000 mg PO BID Diabetes 06/12/20
trazodone 100 mg tablet 200 mg PO HS Sleep 08/31/21
aspirin 81 mg tablet,delayed release 81 mg PO DAILY Blood Clot Prevention/Tx 07/03/23
cetirizine 10 mg tablet 10 mg PO DAILY Allergies 07/03/23
cyclobenzaprine 10 mg tablet 10 mg PO DAILY Muscle Spasms 07/03/23
escitalopram oxalate 20 mg tablet 20 mg PO DAILY depression/anxiety 07/03/23
gabapentin 300 mg capsule 600 mg PO BID@0800,1700 pain 07/03/23
gabapentin 600 mg tablet 1,200 mg PO HS pain 07/03/23
meloxicam 15 mg tablet 15 mg PO DAILY pain 07/03/23
metoprolol tartrate 25 mg tablet 25 mg PO BID Blood Pressure 07/03/23
omeprazole 20 mg capsule,delayed release 20 mg PO DAILY Gastrointestinal Issue 07/03/23
pravastatin 40 mg tablet 40 mg PO HS high cholesterol 07/03/23
furosemide 20 mg tablet (Lasix) 20 mg PO Q OTHER DAY #20 tabs 07/05/23
sodium chloride 1,000 mg soluble tablet 1,000 mg PO DAILY #30 tabs 07/05/23
Pt's Own Ins. Pump Aspart [PT'S OWN INSULIN PUMP - NovoLOG] See Rx Instructions .Route .COMPLEX #1 insert 07/06/23
docusate sodium 100 mg capsule (Colace) 100 mg PO BID 07/16/23
enoxaparin 100 mg/mL subcutaneous syringe (Lovenox) 105 mg SC DAILY 07/16/23
tepotinib 225 mg tablet 225 mg PO HS 07/16/23
tramadol 50 mg tablet 50 mg PO Q6HPRN PRN moderate pains 07/16/23
Review of Systems
-
History Source: Patient and Family
A 12 point ROS was completed and negative except as noted: Yes
Constitutional: Denies Fever or Chills
EENT: Reports No Symptoms
Respiratory: Reports Cough (Phlegm--patient does not know what color it is as he swallows it), Trouble Breathing and Other (Wheezing)
Cardiac: Reports Chest Pain (Patient describes dull in nature)
Abdomen/GI: Reports No Symptoms
: Reports No Symptoms
Musculoskeletal: Reports No Symptoms
Skin: Reports No Symptoms
Neurological: Reports No Symptoms
Endocrine: Reports No Symptoms
Hematologic/Lymphatic: Reports No Symptoms
Psych: Reports No Symptoms
Physical Exam
Vital Signs
Vital Signs
Temp Pulse Resp BP Pulse Ox
97.7 F 123 26 107/76 99
07/20/23 11:39 07/20/23 13:30 07/20/23 13:30 07/20/23 13:00 07/20/23 13:30
Physical Exam
General: Appears Chronically Ill and Cachectic
HEENT: NormoCephalic, Atraumatic and Oxygen
Respiratory: Rhonchi (Right base), Decreased Breath Sounds and Other (Pleurx catheter left chest wall)
Cardiac: S1/S2, Regular Rhythm and Tachycardia
GI: Soft, Non Tender, Non Distended and Normal Bowel Sounds
Musculoskeletal: No Clubbing, No Cyanosis and No Edema
Skin: Warm
Neuro: Awake and Alert
Psych: Calm
Laboratory Results
-
07/20/23 11:51
07/20/23 11:49
Laboratory Results
PT 16.4 Sec (11.4-14.6) H 07/20/23 11:56
INR 1.34 07/20/23 11:56
APTT 34.3 Sec (23.4-35.0) 07/20/23 11:56
Lactic Acid 4.3 mmol/L (0.7-2.0) H* 07/20/23 12:39
Total Bilirubin 0.7 mg/dl (0.2-1.3) 07/20/23 11:49
AST 23 U/L (17-59) 07/20/23 11:49
ALT 24 U/L (0-50) 07/20/23 11:49
Alkaline Phosphatase 158 U/L (38-126) H 07/20/23 11:49
Troponin I 0.016 ng/ml 07/20/23 11:51
Impression/Plan
-
Patient is a 72-year-old male
Sepsis (by criteria) with acute hypoxemic respiratory failure due to likely community-acquired pneumonia--patient is immunocompromised from his Tepotinib -- ADMIT--consult ID--continue Rocephin and doxycycline--May need oxygen at discharge
Paroxysmal atrial fibrillation--patient appears in sinus rhythm but is tachycardic--continue IV fluids--continue Lovenox--continue metoprolol with parameters
Type 2 diabetes mellitus--with insulin pump-- states that the patient pump is malfunctioning currently--consult MACHINE SHOP WORKER-diabetes for assistance
Metastatic lung cancer--patient was to have appointment at [facility] today--appears to have poor prognosis but would need oncology to determine that
Coronary artery disease--status post bypass surgery in past--continue aspirin, beta-oscar, statin
Prostate cancer--noted status post prostatectomy
Essential hypertension--continue medications with parameters
Hyperlipidemia--continue statin therapy
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
Gastroesophageal reflux disease--continue omeprazole
DVT prophylaxis--Lovenox
CODE STATUS--DNR/DNI
--- NOTE | 2023-07-20 14:50 | CON.ID ---
Consultation
-
Date/Time Consultation Requested: 07/20/23 14:30
Date/Time Consultation Performed: 14:53
Requesting Provider: Dr Stone
Performing Provider: Dr Ibarra
Reason for Consultation: met lung cancer on chemo with pneumonia
Chief Complaint / Past History
Chief Complaint
shortness of breath
History of Present Illness
Mr Baxter is a 72 year old male with history of stage IV adenocarcinoma of the lung diagnosed August 2021 for which he is on oral chemotherapy (tepotinib RTK-I) and has pleurex tube, prostate cancer, DM on insulin pump, who presented here today for
shortness of breath, cough. No fevers. He was due for reassessment at [place] but due to shortness of breath presented here instead. 'I feel terrified that I cant get my breath'
Of note he was recently hospitalized here for DKA after home insulin pump stopped working and he didnt seek alternative rx.
Since arrival here he has been afebrile, bp stable,currently saturating 99% on 4L O2 - O2 sat on arrival listed at 98%, wbc 16.6, hgb 13, plt 260, a left shift is noted, eos are present, cr 1.3 - similar to last week, chronically hyponatremic and Na
is 128, lactic acid 4.3, CXR portable: L sided hydropneumothorax, with partial reexpansion, possible basilar right sided pneumonia or chronic changes and pulmonary nodules. Not known to be colonized with MDROs, has received vancomycin and zosyn, ID
is consulted for assistance with management.
Past History
Additional Past Medical History:
Arrthythmia (Paroxysmal atrial fibrillation), CAD, Cancer (Prostate; adenocarcinoma of the lung diagnosed August 2021), HTN, Hypercholesterolemia, IDDM and Other (Hemorrhagic pleural effusion)
Additional Past Surgical History:
Cardiac (CABG 2020) and Urological (Prostatectomy, urethral cuff)
Allergy History:
house dust mite Allergy (Verified 07/16/23 17:33)
Itching
lisinopril Allergy (Verified 07/16/23 17:33)
COUGH
pentazocine [From [facility]] Allergy (Verified 07/16/23 17:33)
PARALYZED
Medications Reviewed: Yes
Social History
Tobacco: Non-Smoker
Alcohol: None
Drug: None
Family History
Family History: Not Pertinent
Review of Systems
Review of Systems
General: Negative Fever or Chills
All systems: All other systems were reviewed and were negative
Vital Signs
Temp Pulse Resp BP Pulse Ox
97.7 F 123 26 107/76 99
07/20/23 11:39 07/20/23 13:30 07/20/23 13:30 07/20/23 13:00 07/20/23 13:30
Physical Exam
Physical Exam
Constitutional: No Acute Distress
Cardiovascular: Regular Rate and S1/S2; Negative Murmur or Rub
Pulmonary: Clear and Symmetric; Negative Wheezes, Rales or Rhonchi
Gastrointestinal: Soft, Non Tender, Non Distended and Normal Bowel Sounds
Extremities: Negative Edema
Skin: Warm and Dry; Negative Rash or Jaundice
Lines: Other (pleural drain in place, entry site covered by bandage - dressing is clean/dry/intact)
Lab / Diagnostic Study Results
07/20/23 11:51
07/20/23 11:49
Abs Immat Gran (auto) 0.1 10^3/uL (0-0.05) H 07/20/23 11:51
Absolute Neuts (auto) 15.3 10^3/uL (1.4-6.5) H 07/20/23 11:51
Absolute Lymphs (auto) 0.5 10^3/uL (1.2-3.4) L 07/20/23 11:51
Absolute Monos (auto) 0.5 10^3/uL (0.1-0.6) 07/20/23 11:51
Absolute Basos (auto) 0.1 10^3/uL (0-0.2) 07/20/23 11:51
Immature Gran % 0.8 % (0-0.5) H 07/20/23 11:51
Neutrophils % 92.0 % (42.2-75.2) H 07/20/23 11:51
Lymphocytes % 3.2 % (20.5-51.1) L 07/20/23 11:51
Monocytes % 3.3 % (1.7-9.3) 07/20/23 11:51
Eosinophils % 0.3 % (0-6) 07/20/23 11:51
Basophils % 0.4 % (0-2) 07/20/23 11:51
PT 16.4 Sec (11.4-14.6) H 07/20/23 11:56
INR 1.34 07/20/23 11:56
Lactic Acid 4.3 mmol/L (0.7-2.0) H* 07/20/23 12:39
Microbiology Results
Micro:
07/20/23 12:39 Blood Culture - Pending
Blood/Venous
07/20/23 12:39 Blood Culture - Pending
Blood/Venous
Assessment / Plan
Possible Pneumonia - subtle
Leukocytosis
Stage IV Lung Cancer with malignant effusion
- sputum culture if able to produce
- covid and influenza screens
- blood cultures x2 are in progress
- last thoracentesis / here without evidence of infection at that time; 350 ccs removed by home health RN today without significant improvement in breathing
- trend lactic acid
- fine to start ceftriaxone/doxycycline; not known to be colonized with MDROs
- tepotinib RTK-I - has not typically been associated with opportunistic infections
- clarifying prognosis of his stage IV cancer would be helpful
- follow clinically
--- NOTE | 2023-07-20 14:58 | PN.DE.MGMTRT ---
Insulin Management
- -
07/20/2023: Insulin Pump Management Consult
72 year old male well known to Diabetes team from previous hosp admissions. Pt admitted with Acute hypoxemic respiratory failure due to likely CAP.
PMH: ASCVD, HTN, HCL, prostate CA, stage IV adenocarcinoma of the lung DX 08/2021 for which he is on oral chemotherapy (tepotinib RTK-I) and has pleurex tube, and T2DM. Was using Tandem Tslim X2 insulin pump with DexCom G6 CGM BABBITTER. Cr 1.3 eGFR 58.7,
glucose 239 on admission.
Pt awake, A/O x3, pleasant, offers no complaints. Able to participate in discussion regarding diabetes management
Pt's at bedside, states that pump has been malfunctioning for the last couple of days. Was alarming in the ED and she took it off, currently not available to assess malfunction issues. Last A1C was 8.7% on 06/08/23. Has his CGM in place.
Plan is to use SQ insulin for now. Instructed pt's to bring Pt's insulin pump with supplies in tomorrow and will assist him in set up and to resume it.
Give Lantus 10 units @ HS, NovoLog 4 units AC and low corrective with meals. 1800 salome diet
P
Diabetes History
- -
Type of Diabetes: 2
Pre-Admission Diabetes Regimen
07/20/23
11:49
Creatinine 1.3
Insulin Pump Settings
IP Diabetes Regimen
07/20/23
11:49
Glucose 239 H
Patient Education
[2023-07-20] MEDS: NSS 1000 ML IV (15:09)
[2023-07-20 15:32] LABS: COVID-19 Antigen Negative (Negative)
[2023-07-20 16:24] LABS: Lactic Acid 3.7 mmol/L (0.7-2.0)
[2023-07-20] MEDS: LR 1000 IV (16:31)
--- NOTE | 2023-07-20 17:05 | PTCARENOTE ---
Pt. admitted from ED. ST on monitor. Pt. states 'feels SOB.' 98% on 4 L o2. at bedside. Pt. oriented to unit.
[2023-07-20 17:20] LABS: Glucose - Point of Care 225 mg/dl (70-99)
[2023-07-20] MEDS: CARDIZEM 5 MG IV (17:42)
[2023-07-20] MEDS: NEURONTIN 600 MG PO (17:49)
[2023-07-20] MEDS: CARDIZEM 125 IV (17:52)
--- NOTE | 2023-07-20 18:01 | PTCARENOTE ---
Pt. eating dinner and HR sustaining in 190s-200s. EKG showing UAF. Pt. c/o of SOB at rest and having frequent productive cough. 98% on 4L o2. made aware. Cardizem bolus and gtt started. Bp stable. Cardizem gtt started at 5 mg/ hr. Speech eval
ordered. MD gonzalez'd patient to continue taking PO medications 1 at a time.
--- NOTE | 2023-07-20 18:13 | PTCARENOTE ---
Pt still sustaining HR in 180s in UAF after initiaton of gtt and 5 mg bolus. MD made aware. Gtt increased to 10 mg/ hr. BP 106/72. Pt. still c/o of SOB. Pulse ox 98% on 4 L o2
[2023-07-20] MEDS: LOPRESSOR 5 MG IV (19:01)
--- NOTE | 2023-07-20 19:12 | W.PN.UPDATE ---
Update Note
Progress Note Update
transferred pt to IMU for better titration of the cardizem drip
cardiology has been consulted for assistance
--- NOTE | 2023-07-20 19:26 | PTCARENOTE ---
IV Lopressor given per Cardiology. IMU transfers in. Pt. went into NSR and converted back to Afib sustaining in 130s. Report given to IMU RN. BP 129/83. Cardizem at 15 mg/ hr.
[2023-07-20] MEDS: MORPHINE SULFATE 1 MG IV (20:10)
[2023-07-20] MEDS: STERILE WATER FOR INJECTION 20 ML IV (20:11)
[2023-07-20] MEDS: VIBRAMYCIN 100 MG PO (20:11)
[2023-07-20] MEDS: COLACE 100 MG PO (20:11)
[2023-07-20] MEDS: ROCEPHIN 2000 MG IV (20:11)
[2023-07-20] MEDS: LOPRESSOR PO (20:12)
[2023-07-20] MEDS: DESYREL 200 MG PO (21:05)
[2023-07-20] MEDS: PRAVACHOL 40 MG PO (21:05)
[2023-07-20] MEDS: FLUSH (NSS) 1 FLUSH IV (21:05)
[2023-07-20] MEDS: NEURONTIN 1200 MG PO (21:05)
[2023-07-20] MEDS: FLUSH (NSS) IV (21:20)
[2023-07-20] MEDS: LANTUS 0.100000000000000006 UNITS SC (21:29)
[2023-07-20] MEDS: TIGAN 200 MG IM (21:29)
[2023-07-20 21:40] LABS: Glucose - Point of Care 282 mg/dl (70-99)
[2023-07-20 21:41] LABS: Lactic Acid 4.5 mmol/L (0.7-2.0)
[2023-07-20 21:50] LABS: NT-proBNP 3650 pg/ml
[2023-07-20] MEDS: ATIVAN 0.5 MG PO (21:59)
[2023-07-21] VITALS (16 sets, daily range): BP systolic 84–134; BP diastolic 49–74; BMI 22.3
[2023-07-21] MEDS: LR 1000 IV (00:14)
[2023-07-21] MEDS: CARDIZEM 125 IV (01:41)
--- NOTE | 2023-07-21 04:17 | PTCARENOTE ---
Received patient as a transfer from [address] [place] [address] overnight on [facility]] at 15mcg/min on 5 liters NC. Patient with increased work of breathing and tachypneic. Placed on midflow NC at 8 liters. outbound call center representative provider contacted an ordered morphine x1. GIven with
relief. HR ranged from the 100s-140s overnight.
[2023-07-21 05:21] LABS: Hematocrit 32.7 % (39.0-52.0); Mean Corp Hgb Conc. 33.6 g/dL (33.0-37.0); Mean Corpuscular Hgb 28.7 pg (27.0-31.0); Mean Corpuscular Volume 85.4 fL (80.0-94.0); Mean Platelet Volume 9.7 fL (7.4-10.4); Platelet Count 227 10^3/uL (130-400); Red Blood Cell Count 3.83 10^6/uL (4.70-6.10); Red Cell Dist. Width 16.8 % (11.5-14.5); White Blood Cell Count 17.5 10^3/uL (4.8-10.8)
[2023-07-21 06:05] LABS: ALT (SGPT) 18 U/L (0-50); AST (SGOT) 21 U/L (17-59); Albumin 1.7 g/dl (3.5-5.0); Alkaline Phosphatase 126 U/L (38-126); Blood Urea Nitrogen 31 mg/dl (9-20); Carbon Dioxide 13 mmol/L (22-30); Chloride 97 mmol/L (98-107); Estimated Creatinine Clearance 47 ml/min; Glucose 383 mg/dl (70-99); Potassium 5.5 mmol/L (3.5-5.1); Sodium 127 mmol/L (135-145); Total Bilirubin 0.3 mg/dl (0.2-1.3); Total Protein 4.2 g/dl (6.3-8.2); eGFR 53.07
--- NOTE | 2023-07-21 06:30 | PTCARENOTE ---
Critical c02 13- radiosonde specialist provider made aware and ordered stat BHB lab.
[2023-07-21 06:57] LABS: B-Hydroxybutyrate 3.33 mmol/L (0.02-0.27)
--- NOTE | 2023-07-21 07:00 | W.PN.UPDATE ---
Update Note
Progress Note Update
AM labs show Anion gap 17
CO2 13
glucose 383
bhydroxy 3.33
will initiative dka protocol until gap closes
[2023-07-21 07:42] LABS: Glucose - Point of Care 424 mg/dl (70-99)
[2023-07-21] MEDS: LOVENOX 100 MG SC (07:55)
[2023-07-21] MEDS: NSS 1000 IV ×2 (07:57→15:51)
[2023-07-21] MEDS: SODIUM CHLORIDE 1 GRAM PO (07:58)
[2023-07-21] MEDS: NEURONTIN 600 MG PO ×2 (08:00→16:54)
[2023-07-21] MEDS: PROTONIX 40 MG PO (08:01)
[2023-07-21] MEDS: FLEXERIL 10 MG PO (08:02)
[2023-07-21] MEDS: COLACE 100 MG PO ×2 (08:02→21:03)
[2023-07-21] MEDS: ASPIR LOW (ENTERIC COATED) 81 MG PO (08:05)
[2023-07-21] MEDS: VIBRAMYCIN 100 MG PO ×2 (08:05→21:03)
[2023-07-21] MEDS: MOBIC 15 MG PO (08:06)
[2023-07-21] MEDS: ZYRTEC 10 MG PO (08:06)
[2023-07-21] MEDS: LOPRESSOR 25 MG PO ×2 (08:07→21:03)
[2023-07-21] MEDS: LEXAPRO 20 MG PO (08:16)
[2023-07-21] MEDS: NOVOLIN R INSULIN INFUSION 100 IV (08:22)
[2023-07-21 08:46] LABS: Blood Urea Nitrogen 31 mg/dl (9-20); Calcium 6.8 mg/dl (8.4-10.2); Carbon Dioxide 17 mmol/L (22-30); Chloride 100 mmol/L (98-107); Estimated Creatinine Clearance 47 ml/min; Glucose 376 mg/dl (70-99); Potassium 5.2 mmol/L (3.5-5.1); Sodium 126 mmol/L (135-145); eGFR 53.07
--- NOTE | 2023-07-21 08:49 | W.PN.HOSP.TC ---
Today's Communication/Plan
-
consult pulm
recheck CXR
cont insulin drip
PT/OT/speech
cardizem drip
await cards input
Assessment / Plan
Assessment / Plan
Patient is a 72-year-old male
Sepsis (by criteria) with acute hypoxemic respiratory failure due to likely community-acquired pneumonia--patient is immunocompromised from his Tepotinib --apprec ID--continue Rocephin and doxycycline--May need oxygen at discharge--now on 8L
midflow--consider Hi RADU and consult pulm
Paroxysmal atrial fibrillation--moved to IMU for cardizem drip--continue IV fluids--continue Lovenox--continue metoprolol with parameters--consult cards
Type 2 diabetes mellitus--with insulin pump-- states that the patient pump is malfunctioning currently--went into DKA overnight and placed on insulin drip--will need gap closed x 2 prior to restarting pump
Metastatic lung cancer--patient was to have appointment at [facility] day of admission but didn't make it--appears to have poor prognosis but would need oncology to determine that--has PleurX drained every 4 days, was drained day of
admission
hypocalcemia--replete
anemia of chronic disease--HGB dropped with IVF hydration
Coronary artery disease--status post bypass surgery in past--continue aspirin, beta-oscar, statin
Prostate cancer--noted status post prostatectomy
Essential hypertension--continue medications with parameters
Hyperlipidemia--continue statin therapy
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
Gastroesophageal reflux disease--continue omeprazole
DVT prophylaxis--Lovenox
CODE STATUS--DNR/DNI
prognosis guarded at best
Total Critical Care Time 36 minutes. I was immediately available to the patient and staff. I personally examined, reviewed labs, diagnostic images/reports, interpretations, treatment plans, discussed patient care with other providers and family
or caregivers (if patient is unable to make decisions), entered orders as appropriate and documented the medical record.
Updated by phone 07/21/23
Anticipated Discharge: > 48 hours
Subjective/Interval History
-
Date of Service: July 21, 2023
pt had bad night with coughing and SOB
Objective Data
-
Labs:
Laboratory Results
07/21/23 07/21/23 07/21/23
04:07 08:12 10:00
WBC 17.5 H
Hgb 11.0 L
Hct 32.7 L
Plt Count 227
Sodium 127 L 126 L Pending
Potassium 5.5 H 5.2 H Pending
Chloride 97 L 100 Pending
Carbon Dioxide 13 L* 17 L Pending
BUN 31 H 31 H Pending
Creatinine 1.4 H 1.4 H Pending
Glucose 383 H 376 H Pending
Calcium 7.0 L 6.8 L* Pending
Total Bilirubin 0.3
AST 21
ALT 18
Alkaline Phosphatase 126
07/21/23 07/21/23
12:00 14:00
WBC
Hgb
Hct
Plt Count
Sodium Pending Pending
Potassium Pending Pending
Chloride Pending Pending
Carbon Dioxide Pending Pending
BUN Pending Pending
Creatinine Pending Pending
Glucose Pending Pending
Calcium Pending Pending
Total Bilirubin
AST
ALT
Alkaline Phosphatase
Vital Signs:
max temp for 24 hours
07/20/23
20:40
Temp 98.1 F
Vital Signs
Temp Pulse Resp BP Pulse Ox
97.4 F 93 30 104/67 95
07/21/23 04:21 07/21/23 08:07 07/21/23 06:00 07/21/23 08:07 07/21/23 06:00
I&O
07/20/23 07/21/23 07/22/23
06:59 06:59 06:59
Intake Total 1979
Balance 1979
Review of Systems
-
All other systems: Reviewed and negative
Physical Exam
-
General: Appears Chronically Ill and Cachectic
HEENT: Normocephalic, Atraumatic and Oxygen
Respiratory: Decreased Breath Sounds (left lung ) and Other (pleurX cath on left)
Cardiac: Regular Rhythm and S1/S2; Negative Murmur
GI: Soft, Nontender, Nondistended and Normal Bowel Sounds
Musculoskeletal: No Clubbing, No Cyanosis and No Edema
Neuro: Awake and Alert
Psych: Calm
--- NOTE | 2023-07-21 08:49 | W.PN.ID1 ---
Addendum entered and electronically signed by Pauline Ibarra MD 07/21/23 16:54:
resp viral panel negative
Addendum entered and electronically signed by Pauline Ibarra MD 07/21/23 15:38:
resp viral panel in progress
Original Note:
Date of Service
Date of Service: July 21, 2023
Today's Communication
- ordered resp viral panel today
- switched ceftriaxone to cefepime
- no gram positives on sputum gram stain
- clarifying prognosis of his stage IV cancer would be helpful
Assessment / Plan
Pneumonia
Leukocytosis
Stage IV Lung Cancer with malignant effusion
- sputum culture in progress; gram stain not revealing - no gram positives on the gram stain
- if due to MRSA would expect gram positives on the gram stain
- covid and influenza screens negative
- ordered resp viral panel today
- blood cultures x2 are in progress
- last thoracentesis 07/15 here without evidence of infection at that time; 350 ccs removed by home health RN 07/19 without significant improvement in breathing
- repeat CXR in the AM
- switched ceftriaxone to cefepime
- continue doxycycline particularly with long qtc; not known to be colonized with MDROs
- tepotinib RTK-I - has not typically been associated with opportunistic infections
- clarifying prognosis of his stage IV cancer would be helpful
- follow clinically
Chief Complaint
-: Pneumonia
Subjective / Review of Systems
remains afebrile
bp stable
now on 8L NC - increasing overnight
slight increase in leukocytosis
slight increase in Cr
persistent acidosis noted, dka protacol started
hyponatremia noted
downtrending lactic acid
hypocalemica (uncorrected)
'I feel lousy'
reports he doesnt typically need cpap at night
Vital Signs / Physical Exam
Vital Signs
Vital Signs
Temp Pulse Resp BP Pulse Ox
97.4 F 93 30 104/67 95
07/21/23 04:21 07/21/23 08:07 07/21/23 06:00 07/21/23 08:07 07/21/23 06:00
Physical Exam
Constitutional: No Acute Distress, Acutely Ill and Chronically Ill
Cardiovascular: Regular Rate and S1/S2; Negative Murmur or Rub
Pulmonary: Clear and Symmetric; Negative Wheezes or Rales
Gastrointestinal: Soft, Non Tender, Non Distended and Normal Bowel Sounds
Skin: Warm and Dry; Negative Rash or Jaundice
Objective Data
Lab Data
Lab Results
07/21/23 04:07
PT 16.4 Sec (11.4-14.6) H 07/20/23 11:56
INR 1.34 07/20/23 11:56
APTT 34.3 Sec (23.4-35.0) 07/20/23 11:56
Estimated Creat Clear 47 ml/min 07/21/23 08:12
Lactic Acid 4.0 mmol/L (0.7-2.0) H* 07/21/23 04:07
Total Bilirubin 0.3 mg/dl (0.2-1.3) 07/21/23 04:07
AST 21 U/L (17-59) 07/21/23 04:07
ALT 18 U/L (0-50) 07/21/23 04:07
Alkaline Phosphatase 126 U/L (38-126) 07/21/23 04:07
Most recent labs reviewed.
Micro Results:
07/20/23 18:07 Respiratory Culture - Pending
Sputum Gram Stain - Preliminary
07/20/23 15:21 Influenza Types A & B (LAURIE) - Final
Nasal Swab Negative for Influenza A & B, NAAT
Negative results must be combined with clinical observations
and patient history.
Nucleic Acid Amplification test (NAAT)performed on the
[employer] NOW platform.
07/20/23 12:39 Blood Culture - Pending
Blood/Venous
07/20/23 12:39 Blood Culture - Pending
Blood/Venous
[2023-07-21 08:52] LABS: Glucose - Point of Care 464 mg/dl (70-99)
[2023-07-21 08:52] LABS: Lactic Acid 3.1 mmol/L (0.7-2.0)
--- NOTE | 2023-07-21 08:55 | CM ---
Patient seen at bedside with physician. Patient lives with in a 2 story home. Patient has a cane but does not use it. Patient has a pleurx cath and an insulin pump, glucometer at home. Patient has [facility] that follows for the pleurx cath and
had it drained on Thursday. [facility] Oncology docs yesterday but was here at instead. Patient PCP is Dr. Schmitt and he uses the [facility] on [facility]. Patient is interested in SNF vs home with home O2.
Patient expressed anxiety about returning home and needing to go up the stairs/ wanting home O2. CM spoke with on the phone and she confirmed above information. Per prior CM [facility]Jeane from [place] for updates
[phone] ext [phone]. CM will continue to follow for discharge planning needs.
Plan SNF vs home with VN/[facility] and watch for home O2 needs.
--- NOTE | 2023-07-21 09:16 | CON.PUL ---
Consultation
Consultation Request
Date/Time Consultation Requested: 07/21/23
Date/Time Consultation Performed: 07/21/23
Performing Provider: Madhavi
Reason for Consultation: SOB/cancer
Medical History
-
History of Present Illness:
Patient is a 72-year-old male with history of metastatic adenocarcinoma of the lung/recurrent malignant pleural effusion s/p left Pleurx catheter, seen by [facility] presenting with insulin pump malfunction and admitted at 07/20/23. Patient continually
has his Pleurx catheter drained every 3 days by visiting nurses, most recently 350 mL was removed. He continues to have shortness of breath and pulse ox reportedly was 60% at home. He does not wear home oxygen. He had similarly presented to the ""hospital and admitted in June for insulin pump malfunction and shortness of breath. CT at that time indicates chronic left lower lobe consolidation identified as his lung cancer location.
Repeat CT on 07/16/23 compared to prior on 07/03/23 showing extensive disease with enlarging entrapped lung.
He notes that his pleural fluid has never stopped draining since placement but has been slowly decreasing.
He was planning to transition his oncological care from [facility] to [facility] but had yet to make the appt. He is not sure where his treatment regiment stands.
He is now DNR, and when speaking with him regarding hospice, he was prepared should his condition decline further.
Past Medical History
Past Medical History: Other (see list below)
Social History
Tobacco: Former Smoker
Alcohol: None
Drug: None
Family History
Family History: Reviewed & Not Pertinent
Allergies / Home Medications
Allergies
Allergy/AdvReac Type Severity Reaction Status Date / Time
house dust mite Allergy Itching Verified 07/16/23 17:33
lisinopril Allergy COUGH Verified 07/16/23 17:33
pentazocine [From Talwin] Allergy PARALYZED Verified 07/16/23 17:33
Home Medications
�Medication �Instructions �Recorded �Confirmed �Last Taken �Type
metformin 500 mg tablet 1,000 mg PO BID Diabetes 06/12/20 07/20/23 07/20/23 History
trazodone 100 mg tablet 200 mg PO HS Sleep 08/31/21 07/20/23 07/15/23 History
aspirin 81 mg tablet,delayed 81 mg PO DAILY Blood Clot 07/03/23 07/20/23 07/20/23 History
release Prevention/Tx
cetirizine 10 mg tablet 10 mg PO DAILY Allergies 07/03/23 07/20/23 07/20/23 History
cyclobenzaprine 10 mg tablet 10 mg PO DAILY Muscle Spasms 07/03/23 07/20/23 07/20/23 History
escitalopram oxalate 20 mg tablet 20 mg PO DAILY depression/anxiety 07/03/23 07/20/23 07/20/23 History
gabapentin 300 mg capsule 600 mg PO BID@0800,1700 pain 07/03/23 07/20/23 07/20/23 History
gabapentin 600 mg tablet 1,200 mg PO HS pain 07/03/23 07/20/23 07/15/23 History
meloxicam 15 mg tablet 15 mg PO DAILY pain 07/03/23 07/20/23 07/20/23 History
metoprolol tartrate 25 mg tablet 25 mg PO BID Blood Pressure 07/03/23 07/20/23 07/20/23 History
omeprazole 20 mg capsule,delayed 20 mg PO DAILY Gastrointestinal 07/03/23 07/20/23 07/20/23 History
release Issue
pravastatin 40 mg tablet 40 mg PO HS high cholesterol 07/03/23 07/20/23 07/15/23 History
furosemide 20 mg tablet (Lasix) 20 mg PO Q OTHER DAY #20 tabs 07/05/23 07/20/23 07/20/23 Rx
sodium chloride 1,000 mg soluble 1,000 mg PO DAILY #30 tabs 07/05/23 07/20/23 07/20/23 Rx
tablet
Pt's Own Ins. Pump Aspart [PT'S See Rx Instructions .Route 07/06/23 07/20/23 Unknown Rx
OWN INSULIN PUMP - NovoLOG] .COMPLEX #1 insert
docusate sodium 100 mg capsule 100 mg PO BID 07/16/23 07/20/23 07/20/23 History
(Colace)
enoxaparin 100 mg/mL subcutaneous 105 mg SC DAILY 07/16/23 07/20/23 07/20/23 History
syringe (Lovenox)
tepotinib 225 mg tablet 225 mg PO HS 07/16/23 07/20/23 07/15/23 History
tramadol 50 mg tablet 50 mg PO Q6HPRN PRN moderate pains 07/16/23 07/20/23 07/16/23 History
Review of Systems
-
History Source: Patient
All other systems: Negative unless noted
Vitals / Labs / Diagnostic Testing
Vital Signs
Temp Pulse Resp BP Pulse Ox
97.4 F 93 30 104/67 95
07/21/23 04:21 07/21/23 08:07 07/21/23 06:00 07/21/23 08:07 07/21/23 06:00
Lab Data
07/21/23 04:07
Laboratory Results
07/20/23
11:56
PT 16.4 H
INR 1.34
APTT 34.3
Microbiology
07/20/23 18:07 Sputum Gram Stain - Preliminary
07/20/23 15:21 Nasal Swab Influenza Types A & B (LAURIE) - Final
Negative for Influenza A & B, NAAT
Negative results must be combined with clinical observations
and patient history.
Nucleic Acid Amplification test (NAAT)performed on the
Jaxtr platform.
Diagnostic Testing:
Physical Exam
-
HEENT: Normocephalic, Anicteric and Moist Mucous Membranes
Cardiovascular: S1/S2, Regular Rhythm and Peripheral Edema (trace/bilateral)
Respiratory: Clear, Non-Labored Respirations and Other (overall decreased on L, pleural drain in place)
GI: Soft, Non Distended and Non Tender
Neurology: Awake, Alert, Oriented, AO x 3 and No Motor Deficits
Skin: Warm and Dry
General: Comfortable and Other (chronically ill appearing)
Assessment
-
Patient is a 72-year-old male with history of metastatic adenocarcinoma of the lung/recurrent malignant pleural effusion s/p left Pleurx catheter, seen by [facility] presenting with insulin pump malfunction and admitted at 07/20/23. Patient continually
has his Pleurx catheter drained every 3 days by visiting nurses, most recently 350 mL was removed. He continues to have shortness of breath and pulse ox reportedly was 60% at home. He does not wear home oxygen. He had similarly presented to the ""hospital and admitted in June for insulin pump malfunction and shortness of breath. CT at that time indicates chronic left lower lobe consolidation identified as his lung cancer location. We are asked for eval of SOB.
Acute hypoxic respiratory failure, on midflow NC
Metastatic lung cancer primary
Entrapped lung/pneumothorax ex vacuo
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
Chronic LLL consolidation, likely lung cancer tumor primary location
Progressive SOB
Malfunctioning insulin pump with mild DKA
Lactic acidosis
Hyponatremia
Hypocalcemia
Afib with RVR
Acute HFpEF, proBNP 3650
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
Paroxysmal atrial fibrillation
Type 2 diabetes mellitus--with insulin pump
Metastatic lung cancer
diagnosed @ [facility], transitioning to [facility]
Anemia of chronic disease
Coronary artery disease s/p bypass surgery
Prostate cancer a/p prostatectomy
Essential hypertension
Hyperlipidemia
Chronic hyponatremia due to syndrome of inappropriate ADH secretion
Gastroesophageal reflux disease
Plan
Hypoxemia noted on arrival, O2 manan 60s reportedly at home
He is placed on midflow 10-12L satting >95%
Prior history of lung disease is noted including metastatic lung cancer s/p pleurx catheter on L
Repeat CT on 07/16/23 compared to prior on 3/22/24 showing extensive disease with enlarging entrapped lung.
He notes that his pleural fluid has never stopped draining since placement but has been slowly decreasing.
He was planning to transition his oncological care from [facility] to [facility] but had yet to make the appt. He is not sure where his treatment regiment stands.
Suspect patient has underlying progressive lung disease
Superimposed infection possible with lactic acidosis/leukocytosis
He is placed on empiric abx
Recent cultures were negative, if continues to be neg, can stop abx
Extensive imaging reviewed
There is significant disease progression noted in 2 weeks since last comparative scan last month
This was also reviewed wtih patient
Not sure there is role here for IV steroids, which would only exacerbate DKA
AFib noted, on IV cardizem
Some component of HF with elevated proBNP
Cards eval obtained
ECHO results in past reviewed--normal EF, mild PH, mild-mod MR
Insulin pump malfunction, mild DKA labs noted
Repeat BMP improved post insulin protocol
DM VACCINATOR consult
Patient would likely benefit from SQ regiment as OP, if pump has not been reliable at home
Prognosis is very poor
He is now DNR, and when speaking with him regarding hospice, he was prepared should his condition decline further.
Would focus on pain/anxiety management at this point
This was discussed in detail with patient and care team
We will follow
Diagnostic Data
Chest X-Ray: 07/20/23- 1. Left lung is grossly unchanged in appearance compared to prior chest x-ray, with unchanged expansion and aeration compared to prior chest x-ray.
2. There is interstitial prominence within the left lung, which may be related to posttreatment change, interstitial pneumonitis, or atypical pneumonia. Grossly unchanged compared to prior chest x-ray.
3. Hazy opacity at the right medial lung base, also seen on prior CT dated 07/16/2023, also concerning for right basilar pneumonia.
4. 1 cm nodular opacity projected over the right scapular tip. This may represent rounded pneumonia or pulmonary nodule, radiographic follow-up is suggested.
CT Scan: CHEST 07/16/23- Left chest tube is present. There is a moderate left hydropneumothorax. Compared to examination of July 03, 2023, significant interval increase in the component of air within this left hydropneumothorax. Overall, the volume
of the left hydropneumothorax is probably not significantly changed compared to the volume of the pleural effusion seen on the prior examination. Increasing parenchymal airspace opacity within the left upper lobe and the right lower lobe, which
likely represents pneumonia.
CHEST 07/03/23- No evidence of central pulmonary embolism. Patient with history of left lung carcinoma with left lower lobe consolidation again identified. Placement of percutaneous left pleural catheter in the interval since recent prior study CT
(with accompanying air likely related to the catheter) with overall small volume decreased left pleural effusion. Cannot exclude some accompanying left pleural thickening. Slightly prominent pulmonary interstitial markings in the left lung, cannot
exclude some lymphangitic spread of tumor. Marked widespread bony metastatic disease again seen.
Echo: 07/03/23- Left ventricle is small in size. Mild concentric left ventricular hypertrophy. Normal left ventricular systolic function. No regional wall motion abnormalities are seen. Estimated ejection fraction is 55-60%. Normal diastolic
function. Normal right ventricular size and function. Normal left atrium. The right atrium is of normal size as is the IVC. Mitral valve opens normally. Prolapse of the posterior mitral leaflet was present with moderate mitral regurgitation. Mitral
annular calcification. Trileaflet aortic valve. Aortic valve opens normally. No aortic regurgitation is seen. Structurally normal tricuspid valve. Tricuspid valve opens normally. Estimated pulmonary artery pressure of 39 mmHg, assuming a right
atrial pressure of 3 mmHg. Mild pulmonary hypertension.Trace pulmonic regurgitation. Trivial pericardial effusion. Pleural effusion present. The aortic root is of normal size. The aortic arch is normal in caliber. The IVC is of normal size and
demonstrates normal respiratory variation. Interatrial septum is intact with no evidence of shunting by color flow Doppler. No intracardiac mass or thrombus formation seen. When compared to prior study on 12/17/2022, there interval increase in
mitral regurgitation (from mild to moderate), no other significant change.
PFT's:
Reports and relevant images were personally reviewed.
--- NOTE | 2023-07-21 09:21 | PTCARENOTE ---
pt remains in NSR, cardizem gtt d/c per cardiology.
[2023-07-21] MEDS: CALCIUM GLUCONATE 130 MG IV (09:26)
[2023-07-21 09:44] LABS: Glucose - Point of Care 485 mg/dl (70-99)
--- NOTE | 2023-07-21 09:49 | PN.DE.MGMTRT ---
Insulin Management
- -
07/21/2023: Diabetes Management with Insulin Pump Consult Follow up
Pt admitted with Acute hypoxemic respiratory failure due to likely CAP, well known to Diabetes team from previous hospital admissions.
PMH: ASCVD, HTN, HCL, prostate CA, stage IV adenocarcinoma of the lung DX 08/2021 for which he is on oral chemotherapy (tepotinib RTK-I) and has pleurex tube, and T2DM. Was using Tandem Tslim X2 insulin pump with DexCom G6 CGM LACE STRIPPER. Today Cr 1.4,
eGFR 53.7.
Pt awake, alert and oriented, pleasant, slightly SOB when speaking but offers no complaints, Able to participate in discussion regarding diabetes management.
Patients to bring pump and supplies in this morning. Patient states the pump was replaced because it malfunctioned, and new pump is not 'right'. Was alarming in the ED and took it home, currently not available to assess malfunction issues.
Last A1C was 8.7% on 06/08/23. Has his CGM in place.
Overnight patient in DKA, currently on insulin infusion DKA protocol. GAP this AM 27, @ 8:12 down to 9. Labs just drawn.
When pump arrives will prepare to transition back to pump after I evaluate settings, if GAP remains closed with most recent labs.
Diabetes History
- -
Type of Diabetes: 2 requiring insulin
Pre-Admission Diabetes Regimen
07/20/23 07/21/23 07/21/23
11:49 04:07 08:12
Creatinine 1.3 1.4 H 1.4 H
Insulin Pump Settings
IP Diabetes Regimen
07/20/23 07/20/23 07/20/23
11:49 17:18 21:29
Glucose 239 H
POC Glucose 225 H 282 H
07/21/23 07/21/23 07/21/23
04:07 07:30 08:12
Glucose 383 H 376 H
POC Glucose 424 H
04/09/24 04/09/24
08:41 09:32
Glucose
POC Glucose 464 H* 485 H*
Patient Education
[2023-07-21 10:12] LABS: Blood Urea Nitrogen 32 mg/dl (9-20); Calcium 7.3 mg/dl (8.4-10.2); Carbon Dioxide 19 mmol/L (22-30); Chloride 101 mmol/L (98-107); Estimated Creatinine Clearance 51 ml/min; Glucose 331 mg/dl (70-99); Sodium 128 mmol/L (135-145); eGFR 58.01
[2023-07-21] MEDS: CARDIZEM CD PO (10:15)
[2023-07-21 10:17] LABS: Lactic Acid 4.1 mmol/L (0.7-2.0)
[2023-07-21] MEDS: MAXIPIME 1000 MG IV ×2 (10:17→21:03)
[2023-07-21] MEDS: STERILE WATER FOR INJECTION 10 ML IV ×2 (10:17→21:03)
--- NOTE | 2023-07-21 10:33 | CON.CAR ---
Addendum entered and electronically signed by Titi Fish DO 07/21/23 14:34:
I saw and examined the patient.
The Vest Presser's note was reviewed and I agree with the note.
Comment:
Plan:
PAFib now back in sinus after spontaneous conversion.
Cont Lopressor and Cardizem PO for rate control. Stop IV cardizem.
He had been on Eliquis which was stopped June 2023 due to hemorrhagic drainage from Pleurx. Remains on Lovenox and ASA.
He has PNA and recent CT with entrapped lung secondary to lung cancer and metastatic disease.
Cont pulm toilet and O2
Pt is DNR and goals of care discussions ongoing.
Stable cv status. Please recall if needed.
Original Note:
Consultation
Consultation Request
Date/Time Consultation Performed: 07/21/23
Requesting Provider: Dr. Stone
Performing Provider: Chandrika Cronin PA-C for Dr. Fish
Reason for Consultation: afib
Medical History
-
Chief Complaint: afib
History of Present Illness:
Patient is a 72-year-old male with stage IV adenocarcinoma of lung with mets to bone, previously followed at [facility] transitioning care to [facility]. He has history of right-sided pleural effusion requiring thoracentesis, and most
recently with recurrent left-sided pleural effusion and underwent Pleurx catheter placement 06/2023. He has been having his Pleurx catheter drained approximately every 3 days by visiting nurses. He presents with insulin pump malfunction, as well as
worsening shortness of breath and hypoxia at home. Prior to admission he was not on supplemental oxygen, currently requiring mid flow. He had repeat CT scan on 07/16/23 reportedly with worsening extensive blastic metastatic disease, mod L
hydropneumothorax related to enlarging trapped lung, left upper lobe and right lower lobe opacity. He was noted on arrival to be in A-fib with rapid ventricular response. Was started on IV Cardizem gtt, and spontaneously converted to sinus rhythm
this morning. He remains in sinus rhythm at this time. He had been on Eliquis which was stopped due to hemorrhagic drainage from his Pleurx catheter in June. He is noted to be on Lovenox 105 mg subcutaneous daily as an outpatient. Cardiology
consulted for evaluation
PMH:
Paroxysmal atrial fibrillation
Bilateral pulmonary vein RF ablations at time of CABG 06/2020
s/p MANISH Atricure clip closure 06/15/20
Prior Eliquis OAC, stopped 06/2023 due to hemorrhagic drainage from pleurx
Stage 4 adenocarcinoma of lung, mets to bone, followed at [facility]
Recurrent L pleural effusion, exudative in nature 12/14/2022, s/p pleurx catheter placement 06/2023
History of right-sided pleural effusion requiring thoracentesis
CAD
s/p CABG x 4 with HAMMOND-mid LAD; SVG seq - RPD, intramyocardial RI; SVG - D2 06/2020IDDM w/ insulin pump
HTN
Hyperlipidemia
DM2, insulin pump
Chronic anemia
Small left lower lobe pulmonary embolism in 08/2021
hx prostate CA s/p prostatectomy
Peripheral neuropathy
Chronic hyponatremia
GERD
Past Medical History
Past Medical History: Other (in HPI)
Social History
Tobacco: Former Smoker
Personal:
Living: With Family
Employment: Retired
Allergies / Home Medications
Allergy/AdvReac Type Severity Reaction Status Date / Time
house dust mite Allergy Itching Verified 07/16/23 17:33
lisinopril Allergy COUGH Verified 07/16/23 17:33
pentazocine [From Talwin] Allergy PARALYZED Verified 07/16/23 17:33
�Medication �Instructions �Recorded �Confirmed �Type
metformin 500 mg tablet 1,000 mg PO BID Diabetes 06/12/20 07/20/23 History
trazodone 100 mg tablet 200 mg PO HS Sleep 08/31/21 07/20/23 History
aspirin 81 mg tablet,delayed 81 mg PO DAILY Blood Clot 07/03/23 07/20/23 History
release Prevention/Tx
cetirizine 10 mg tablet 10 mg PO DAILY Allergies 07/03/23 07/20/23 History
cyclobenzaprine 10 mg tablet 10 mg PO DAILY Muscle Spasms 07/03/23 07/20/23 History
escitalopram oxalate 20 mg tablet 20 mg PO DAILY depression/anxiety 07/03/23 07/20/23 History
gabapentin 300 mg capsule 600 mg PO BID@0800,1700 pain 07/03/23 07/20/23 History
gabapentin 600 mg tablet 1,200 mg PO HS pain 07/03/23 07/20/23 History
meloxicam 15 mg tablet 15 mg PO DAILY pain 07/03/23 07/20/23 History
metoprolol tartrate 25 mg tablet 25 mg PO BID Blood Pressure 07/03/23 07/20/23 History
omeprazole 20 mg capsule,delayed 20 mg PO DAILY Gastrointestinal 07/03/23 07/20/23 History
release Issue
pravastatin 40 mg tablet 40 mg PO HS high cholesterol 07/03/23 07/20/23 History
furosemide 20 mg tablet (Lasix) 20 mg PO Q OTHER DAY #20 tabs 07/05/23 07/20/23 Rx
sodium chloride 1,000 mg soluble 1,000 mg PO DAILY #30 tabs 07/05/23 07/20/23 Rx
tablet
Pt's Own Ins. Pump Aspart [PT'S See Rx Instructions .Route 07/06/23 07/20/23 Rx
OWN INSULIN PUMP - NovoLOG] .COMPLEX #1 insert
docusate sodium 100 mg capsule 100 mg PO BID 07/16/23 07/20/23 History
(Colace)
enoxaparin 100 mg/mL subcutaneous 105 mg SC DAILY 07/16/23 07/20/23 History
syringe (Lovenox)
tepotinib 225 mg tablet 225 mg PO HS 07/16/23 07/20/23 History
tramadol 50 mg tablet 50 mg PO Q6HPRN PRN moderate pains 07/16/23 07/20/23 History
Review of Systems
-
History Source: Patient and Family
All other systems: Negative unless noted
Physical Exam
Vital Signs
Temp Pulse Resp BP Pulse Ox
97.5 F 73 30 85/56 95
07/21/23 07:20 07/21/23 10:15 07/21/23 06:00 07/21/23 10:15 07/21/23 06:00
Lab Results
07/21/23 04:07
Troponin I 0.016 ng/ml 07/20/23 11:51
Kqs-G-Rqbfnxmffjq Pept 3650 pg/ml 07/20/23 21:17
Physical Exam
General: No Apparent Distress and Other (cachectic appearing. on midflow supp O2)
HEENT: Normocephalic, Anicteric and Moist Mucous Membranes
Respiratory: Rhonchi and Non Labored Respirations
Cardiac: S1/S2 and Regular Rhythm
GI: Soft, Non Tender, Non Distended and Normal Bowel Sounds
Musculoskeletal: No Clubbing, No Cyanosis and Edema (1+ of B/L LE )
Skin: Warm and Dry
Neuro: AO x 3
Impression / Plan
-
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 Fish in office 06/2020
Primary Oncologist: Dr. Morgan of [facility], transitioning to [facility]
Assessment:
Presentation with SOB
Acute hypoxic respiratory failure, on midflow
LLL consolidation
Entrapped lung/pneumothorax ex vacuo
DKA
Atrial fibrillation with RVR, spontaneously converted to SR 07/21/23
Hypotension
Hyponatremia
Hypocalcemia
Sinus tachycardia
Paroxysmal atrial fibrillation
Bilateral pulmonary vein RF ablations at time of CABG 06/2020
s/p MANISH Atricure clip closure 06/15/20
Chronic Eliquis OAC, recently stopped due to hemorrhagic drainage from pleurx
Stage 4 adenocarcinoma of lung, mets to bone, followed at [facility]
Recurrent L pleural effusion, exudative in nature 12/14/2022, s/p pleurx catheter placement 06/2023
History of right-sided pleural effusion requiring thoracentesis
CAD
s/p CABG x 4 with HAMMOND-mid LAD; SVG seq - RPD, intramyocardial RI; SVG - D2 06/2020
IDDM w/ insulin pump
HTN
Hyperlipidemia
Chronic anemia
Small left lower lobe pulmonary embolism in 08/2021
hx prostate CA s/p prostatectomy
Peripheral neuropathy
Chronic hyponatremia
GERD
ECHO 12/17/2022: EF 54%, mild MR, sclerotic aortic valve without stenosis, mild to moderate TR, PAP 37 mmHg, pleural effusion present
TTE 07/03/2023: EF 55-60%, moderate MR, mild TR with PASP 39 mmHg, pleural effusion, trivial pericardial effusion
Plan:
-Patient presented to [facility] last evening due to worsening shortness of breath and hypoxia. He is noted to have possible pneumonia by chest x-ray. Continue treatment per pulmonary
-By recent CT scan 07/16/2023, patient appears to have worsening of entrapped lung secondary to lung cancer as well as worsening metastatic disease.
-Cardiology consulted as patient was noted to be in A-fib with rapid ventricular response upon arrival. He spontaneously converted to sinus rhythm on IV Cardizem gtt. This has now been stopped. He will continue outpatient dose of p.o. Lopressor
in addition to low-dose p.o. Cardizem, added today. Hold parameters in place, as blood pressures remain soft
-He had been on Eliquis which was stopped 06/2023 due to hemorrhagic drainage from his Pleurx catheter. He is on Lovenox 105mg SC daily as OP, which has been continued. He is also on baby aspirin.
-proBNP 3650. as Cr up to 1.4 and hypotensive, will likely hold off on diuretics at present and follow volume status. he was taking 20mg po lasix EOD as OP.
-recent echo 07/03/23 with results as above
-wean supp O2 as able. was not on supp O2 prior to admission
-also being treated for insulin pump failure. He is being treated for DKA per primary service
-He is a DNR. It appears hospice care would be appropriate
-d/w patient and at bedside
-d/w nursing
-d/w pulmonary
Data Reviewed
-
EKG: Tracing Personally Visualized and interpreted
Radiology: Report Reviewed by me
CT Scan: Report Reviewed by me
Medical Tests (Nuc Med, Echo etc): Report Reviewed by me
Labs: Labs Reviewed by me
Old Records: Reviewed
[2023-07-21 10:43] LABS: Glucose - Point of Care 319 mg/dl (70-99)
[2023-07-21 11:44] LABS: Glucose - Point of Care 304 mg/dl (70-99)
[2023-07-21 12:16] LABS: Blood Urea Nitrogen 34 mg/dl (9-20); Calcium 7.8 mg/dl (8.4-10.2); Carbon Dioxide 20 mmol/L (22-30); Chloride 99 mmol/L (98-107); Estimated Creatinine Clearance 47 ml/min; Glucose 248 mg/dl (70-99); Potassium 4.8 mmol/L (3.5-5.1); Sodium 129 mmol/L (135-145); eGFR 53.07
--- NOTE | 2023-07-21 12:30 | PN.DE.MGMTRT ---
Insulin Management
- -
07/21/2023 Pump update
Patient brought pump but no infusion sets. Will transition when infusion sets are brought in.
Diabetes History
- -
Type of Diabetes: 2 requiring insulin
Pre-Admission Diabetes Regimen
07/21/23 07/21/23 07/21/23
04:07 08:12 09:45
Creatinine 1.4 H 1.4 H 1.3
07/21/23
11:45
Creatinine 1.4 H
Insulin Pump Settings
IP Diabetes Regimen
07/20/23 07/20/23 07/21/23
17:18 21:29 04:07
Glucose 383 H
POC Glucose 225 H 282 H
07/21/23 07/21/23 07/21/23
07:30 08:12 08:41
Glucose 376 H
POC Glucose 424 H 464 H*
07/21/23 07/21/23 07/21/23
09:32 09:45 10:32
Glucose 331 H
POC Glucose 485 H* 319 H
07/21/23 07/21/23
11:33 11:45
Glucose 248 H
POC Glucose 304 H
Patient Education
--- NOTE | 2023-07-21 12:40 | PTOTSP ---
Speech Language Pathology
Pt seen for clinical bedside swallow evaluation. present at bedside. P.O. trials of puree, regular solids, and thin liquids provided. Prolonged mastication, suspect secondary to fatigue and respiratory status, but was able to clear oral
cavity independently. Increased WOB with P.O. intake. Brief throat clear/slight cough noted at times with liquids with clear vocal quality following.
Pt is at risk for aspiration given respiratory status. Discussed option of VSE, but would like to avoid testing if possible. Also discussed option of softer diet given exertion required to chew. However, appetite is poor, and suspect modified
diet would negatively impact P.O. intake to a significant degree.
Recommend:
(1) Regular solids/thin liquids with pt choosing softer items
(2) Aspiration precautions: sit upright, slow rate, single sips, take break if SOB, eat only if Sp02 >90% and RR <30
(3) Meds as tolerated
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
[2023-07-21 12:44] LABS: Glucose - Point of Care 217 mg/dl (70-99)
[2023-07-21 13:42] LABS: Glucose - Point of Care 289 mg/dl (70-99)
[2023-07-21 14:09] LABS: Lactic Acid 4.6 mmol/L (0.7-2.0)
[2023-07-21 14:13] LABS: Blood Urea Nitrogen 33 mg/dl (9-20); Calcium 7.5 mg/dl (8.4-10.2); Carbon Dioxide 20 mmol/L (22-30); Chloride 102 mmol/L (98-107); Estimated Creatinine Clearance 51 ml/min; Glucose 190 mg/dl (70-99); Potassium 4.4 mmol/L (3.5-5.1); Sodium 128 mmol/L (135-145); eGFR 58.01
[2023-07-21 14:48] LABS: Glucose - Point of Care 230 mg/dl (70-99)
[2023-07-21 16:00] LABS: Glucose - Point of Care 188 mg/dl (70-99)
--- NOTE | 2023-07-21 16:42 | WOUNDNOTE ---
[facility] RN NOTE: Reviewed chart and met with patient and . Patient with left heel unstageable wound with eschar intact. Patient also with epithelized wound to left lateral ankle. explained that patient has had wound for over a year. This wound
appears to be a healed stage 2 or 3 PI. Both wounds given local wound care per order. Spoke to about off-loading of heel and demonstrated with pillow. Fiber filled boot also ordered to left heel. Explained to and patient that left heel
wound is unstageable and may open or worsen. Patient reports poor appetite. He has several co-morbidities including metastatic lung cancer. Wounds may worsen and new wounds may develop even with optimal care. Orders confirmed with hospitalist and
JOHN, Sophy sargent. Will follow as needed.
[2023-07-21 16:43] LABS: Glucose - Point of Care 145 mg/dl (70-99)
[2023-07-21] MEDS: D5/0.45%NACL 1000 IV (16:54)
[2023-07-21 17:50] LABS: Glucose - Point of Care 114 mg/dl (70-99)
[2023-07-21 18:49] LABS: Glucose - Point of Care 118 mg/dl (70-99)
[2023-07-21] MEDS: FLUSH (NSS) IV ×2 (20:25→20:26)
[2023-07-21 20:38] LABS: Glucose - Point of Care 188 mg/dl (70-99)
[2023-07-21] MEDS: NEURONTIN 1200 MG PO (21:02)
[2023-07-21] MEDS: PRAVACHOL 40 MG PO (21:02)
[2023-07-21] MEDS: DESYREL 200 MG PO (21:03)
[2023-07-21 21:12] LABS: Potassium 4.2 mmol/L (3.5-5.1)
[2023-07-21 21:14] LABS: Blood Urea Nitrogen 29 mg/dl (9-20); Calcium 7.6 mg/dl (8.4-10.2); Carbon Dioxide 21 mmol/L (22-30); Chloride 102 mmol/L (98-107); Estimated Creatinine Clearance 60 ml/min; Glucose 205 mg/dl (70-99); Potassium 4.3 mmol/L (3.5-5.1); Sodium 127 mmol/L (135-145); eGFR > 60.00
--- NOTE | 2023-07-21 21:31 | PTCARENOTE ---
Addendum entered by Crystal Nguyen RN 07/21/23 21:37:
call out clerk provider also ordered fluids to be decreased, a breathing tx, and stat chest xray.
Original Note:
Patient anxious and attempting to jump out of bed into the tripod position to catch his breath. He is on midflow 15 liters and tachypneic. Morphine given x1 night prior without relief. call or contact centre manager provider made aware and ordered 1 x dose ativan.
[2023-07-21] MEDS: ATIVAN 0.5 MG PO (21:36)
[2023-07-21 21:45] LABS: Glucose - Point of Care 181 mg/dl (70-99)
[2023-07-21 22:43] LABS: Glucose - Point of Care 187 mg/dl (70-99)
[2023-07-21 23:42] LABS: Glucose - Point of Care 186 mg/dl (70-99)
[2023-07-22] VITALS (7 sets, daily range): BP systolic 90–127; BP diastolic 61–85; BMI 22.6
[2023-07-22] MEDS: D5/0.45%NACL 1000 IV (00:35)
[2023-07-22 00:46] LABS: Glucose - Point of Care 189 mg/dl (70-99)
[2023-07-22 01:44] LABS: Glucose - Point of Care 201 mg/dl (70-99)
[2023-07-22 02:53] LABS: Glucose - Point of Care 149 mg/dl (70-99)
[2023-07-22 03:54] LABS: Hematocrit 34.9 % (39.0-52.0); Hemoglobin 11.4 g/dL (13.0-18.0); Mean Corp Hgb Conc. 32.7 g/dL (33.0-37.0); Mean Corpuscular Hgb 28.5 pg (27.0-31.0); Mean Corpuscular Volume 87.3 fL (80.0-94.0); Mean Platelet Volume 9.4 fL (7.4-10.4); Platelet Count 223 10^3/uL (130-400); Red Cell Dist. Width 16.9 % (11.5-14.5); White Blood Cell Count 17.3 10^3/uL (4.8-10.8)
[2023-07-22 03:55] LABS: Glucose - Point of Care 174 mg/dl (70-99)
[2023-07-22 04:09] LABS: ALT (SGPT) 18 U/L (0-50); AST (SGOT) 24 U/L (17-59); Albumin 1.6 g/dl (3.5-5.0); Alkaline Phosphatase 123 U/L (38-126); Blood Urea Nitrogen 26 mg/dl (9-20); Calcium 7.3 mg/dl (8.4-10.2); Carbon Dioxide 19 mmol/L (22-30); Chloride 106 mmol/L (98-107); Estimated Creatinine Clearance 66 ml/min; Glucose 123 mg/dl (70-99); Magnesium 1.6 mg/dl (1.6-2.3); Potassium 4.1 mmol/L (3.5-5.1); Sodium 129 mmol/L (135-145); Total Bilirubin 0.2 mg/dl (0.2-1.3); Total Protein 4.3 g/dl (6.3-8.2); eGFR > 60.00
[2023-07-22 05:55] LABS: Glucose - Point of Care 128 mg/dl (70-99)
[2023-07-22 06:57] LABS: Glucose - Point of Care 152 mg/dl (70-99)
[2023-07-22 07:26] LABS: Lactic Acid 2.2 mmol/L (0.7-2.0)
[2023-07-22 07:30] LABS: Potassium 4.1 mmol/L (3.5-5.1)
[2023-07-22 08:15] LABS: Glucose - Point of Care 131 mg/dl (70-99)
[2023-07-22] MEDS: LOVENOX 100 MG SC (08:17)
[2023-07-22] MEDS: NEURONTIN 600 MG PO (08:18)
[2023-07-22] MEDS: PROTONIX 40 MG PO (08:20)
[2023-07-22] MEDS: VIBRAMYCIN 100 MG PO (08:20)
[2023-07-22] MEDS: LASIX 20 MG PO (08:20)
[2023-07-22] MEDS: ZYRTEC 10 MG PO (08:22)
[2023-07-22] MEDS: LOPRESSOR 25 MG PO (08:22)
[2023-07-22] MEDS: FLEXERIL 10 MG PO (08:23)
[2023-07-22] MEDS: ASPIR LOW (ENTERIC COATED) 81 MG PO (08:23)
[2023-07-22] MEDS: LEXAPRO 20 MG PO (08:23)
[2023-07-22] MEDS: MOBIC 15 MG PO (08:25)
[2023-07-22] MEDS: CARDIZEM CD 120 MG PO (08:25)
[2023-07-22] MEDS: COLACE 100 MG PO (08:25)
[2023-07-22] MEDS: SODIUM CHLORIDE 1 GRAM PO (08:25)
--- NOTE | 2023-07-22 08:46 | PTCARENOTE ---
Rec'd pt this AM. [address] Stone per protocol that sugar is under 150. Discussed concerns over pt's ability to manage his own insulin pump with Dr. Stone and ELVIS Giraldo
--- NOTE | 2023-07-22 08:57 | PTCARENOTE ---
RN spoke to pt about plan of care. Pt OK with direct support staff managing his insulin on SS with possible lantus and not using own insulin pump from home. Pt also agreeable to hospice consult. Provider updated
[2023-07-22 09:06] LABS: Glucose - Point of Care 129 mg/dl (70-99)
--- NOTE | 2023-07-22 09:08 | W.PN.PUL3 ---
Today's Communication / Plan
-
Agree with comfort focused care, at bedside
Stop abx and observe off, ID following
Morphine/ativan PRN
Supportive O2 use, patient is DNR
Prognosis overall poor, care team updated
Assessment
-
Patient is a 72-year-old male with history of metastatic adenocarcinoma of the lung/recurrent malignant pleural effusion s/p left Pleurx catheter, seen by [facility] presenting with insulin pump malfunction and admitted at 07/20/23. Patient continually
has his Pleurx catheter drained every 3 days by visiting nurses, most recently 350 mL was removed. He continues to have shortness of breath and pulse ox reportedly was 60% at home. He does not wear home oxygen. He had similarly presented to the ""hospital and admitted in June for insulin pump malfunction and shortness of breath. CT at that time indicates chronic left lower lobe consolidation identified as his lung cancer location. We are asked for eval of SOB.
Acute hypoxic respiratory failure, on midflow NC
Metastatic lung cancer primary
Entrapped lung/pneumothorax ex vacuo
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
Chronic LLL consolidation, likely lung cancer tumor primary location
Progressive SOB
Malfunctioning insulin pump with mild DKA
Lactic acidosis
Hyponatremia
Hypocalcemia
Afib with RVR
Acute HFpEF, proBNP 3650
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
Paroxysmal atrial fibrillation
Type 2 diabetes mellitus--with insulin pump
Metastatic lung cancer
diagnosed @ [facility], transitioning to [facility]
Anemia of chronic disease
Coronary artery disease s/p bypass surgery
Prostate cancer a/p prostatectomy
Essential hypertension
Hyperlipidemia
Chronic hyponatremia due to syndrome of inappropriate ADH secretion
Gastroesophageal reflux disease
Plan
Hypoxemia noted on arrival, O2 manan 60s reportedly at home
He is placed on midflow 10-12L satting >95%, now increased to 15L
Prior history of lung disease is noted including metastatic lung cancer s/p pleurx catheter on L
Repeat CT on 07/16/23 compared to prior on 07/03/23 showing extensive disease with enlarging entrapped lung.
He notes that his pleural fluid has never stopped draining since placement but has been slowly decreasing.
He was planning to transition his oncological care from [facility] to [facility] but had yet to make the appt. He is not sure where his treatment regiment stands.
Suspect patient has underlying progressive lung disease
Superimposed infection possible with lactic acidosis/leukocytosis
He is placed on empiric abx
Recent cultures were negative, if continues to be neg, can stop abx
ID following, appreciate recs
Extensive imaging reviewed
There is significant disease progression noted in 2 weeks since last comparative scan last month
This was also reviewed wtih patient
Not sure there is role here for IV steroids, which would only exacerbate DKA
AFib noted, on IV cardizem
Some component of HF with elevated proBNP
Cards eval obtained
ECHO results in past reviewed--normal EF, mild PH, mild-mod MR
Insulin pump malfunction, mild DKA labs noted
Repeat BMP improved post insulin protocol
DM KNIT GOODS PRESS HAND consult
Patient would likely benefit from SQ regiment as OP, if pump has not been reliable at home
Prognosis is very poor
He is now DNR, and when speaking with him regarding hospice, he was prepared should his condition decline further.
Would focus on pain/anxiety management at this point
This was discussed in detail with patient and care team
at bedside, she was updated
Diagnostic Data
Chest X-Ray: 07/20/23- 1. Left lung is grossly unchanged in appearance compared to prior chest x-ray, with unchanged expansion and aeration compared to prior chest x-ray.
2. There is interstitial prominence within the left lung, which may be related to posttreatment change, interstitial pneumonitis, or atypical pneumonia. Grossly unchanged compared to prior chest x-ray.
3. Hazy opacity at the right medial lung base, also seen on prior CT dated 07/16/2023, also concerning for right basilar pneumonia.
4. 1 cm nodular opacity projected over the right scapular tip. This may represent rounded pneumonia or pulmonary nodule, radiographic follow-up is suggested.
CT Scan: CHEST 07/16/23- Left chest tube is present. There is a moderate left hydropneumothorax. Compared to examination of July 03, 2023, significant interval increase in the component of air within this left hydropneumothorax. Overall, the volume
of the left hydropneumothorax is probably not significantly changed compared to the volume of the pleural effusion seen on the prior examination. Increasing parenchymal airspace opacity within the left upper lobe and the right lower lobe, which
likely represents pneumonia.
CHEST 07/03/23- No evidence of central pulmonary embolism. Patient with history of left lung carcinoma with left lower lobe consolidation again identified. Placement of percutaneous left pleural catheter in the interval since recent prior study CT
(with accompanying air likely related to the catheter) with overall small volume decreased left pleural effusion. Cannot exclude some accompanying left pleural thickening. Slightly prominent pulmonary interstitial markings in the left lung, cannot
exclude some lymphangitic spread of tumor. Marked widespread bony metastatic disease again seen.
Echo: 07/03/23- Left ventricle is small in size. Mild concentric left ventricular hypertrophy. Normal left ventricular systolic function. No regional wall motion abnormalities are seen. Estimated ejection fraction is 55-60%. Normal diastolic
function. Normal right ventricular size and function. Normal left atrium. The right atrium is of normal size as is the IVC. Mitral valve opens normally. Prolapse of the posterior mitral leaflet was present with moderate mitral regurgitation. Mitral
annular calcification. Trileaflet aortic valve. Aortic valve opens normally. No aortic regurgitation is seen. Structurally normal tricuspid valve. Tricuspid valve opens normally. Estimated pulmonary artery pressure of 39 mmHg, assuming a right
atrial pressure of 3 mmHg. Mild pulmonary hypertension.Trace pulmonic regurgitation. Trivial pericardial effusion. Pleural effusion present. The aortic root is of normal size. The aortic arch is normal in caliber. The IVC is of normal size and
demonstrates normal respiratory variation. Interatrial septum is intact with no evidence of shunting by color flow Doppler. No intracardiac mass or thrombus formation seen. When compared to prior study on 12/17/2022, there interval increase in
mitral regurgitation (from mild to moderate), no other significant change.
PFT's:
Reports and relevant images were personally reviewed.
Subjective Data
-
Date of Service:
Date of Service: July 22, 2023
Chief Complaint: Pulmonary Follow Up
Subjective:
Appears more lethargic this AM, now on 15L
Family at bedside
He is less conversive
Objective Data
Data Reviewed
Vital Signs / I&O / Oxygen:
Vital Signs
Temp Pulse Resp BP Pulse Ox
97.7 F 121 22 113/72 96
07/22/23 07:03 07/22/23 08:25 07/22/23 06:00 07/22/23 08:25 07/22/23 06:00
Intake and Output
07/21/23 07/22/23 07/23/23
06:59 06:59 06:59
Intake Total 1979 840 / 840
Balance 1979 840 / 840
SaO2 96
Nasal Cannula flow liters per 15
minute
Physical Exam
General: Respiratory Distress (mild), Poor Appetite, Other (lethargic but arousable) and Other (chronically ill appearing, deconditioned)
HEENT: Normocephalic, Anicteric and Other (dry MM)
Cardiovascular: S1-S2, Regular Rhythm and Peripheral Edema
Respiratory: Crackles, Non-Labored Respirations and Other (decreased overall BS)
GI: Soft, Non Distended and Non Tender
Neurology: No Motor Deficits and Lethargic (but arousable)
Skin: Warm and Dry
Labs/Micro/Reports
Lab Data
07/22/23 03:20
07/22/23 06:46
Laboratory Results
07/21/23 07/21/23
14:18 22:00
pH Cancelled Cancelled
pCO2 Cancelled Cancelled
pO2 Cancelled Cancelled
HCO3 Cancelled Cancelled
O2 Delivery Level Cancelled Cancelled
Microbiology
07/21/23 13:43 Nasalpharynx Influenza Type A (PCR) - Final
Not Detected
07/21/23 13:43 Nasalpharynx Influenza Type A (H1) (PCR) - Final
Not Detected
07/21/23 13:43 Nasalpharynx Influenza Type A (H3) (PCR) - Final
Not Detected
07/21/23 13:43 Nasalpharynx Influenza Type B (PCR) - Final
Not Detected
07/21/23 13:43 Nasalpharynx Resp Syncytial Virus Type A (PCR) - Final
Not Detected
07/21/23 13:43 Nasalpharynx Resp Syncytial Virus Type B (PCR) - Final
Not Detected
07/21/23 13:43 Nasalpharynx Adenovirus DNA (PCR) - Final
Not Detected
07/21/23 13:43 Nasalpharynx Human Metapneumovirus (PCR) - Final
Not Detected
07/21/23 13:43 Nasalpharynx Parainfluenza Virus Type 1 (PCR) - Final
Not Detected
07/21/23 13:43 Nasalpharynx Parainfluenza Virus Type 2 (PCR) - Final
Not Detected
07/21/23 13:43 Nasalpharynx Parainfluenza Virus Type 3 (PCR) - Final
Not Detected
07/21/23 13:43 Nasalpharynx Parainfluenza Virus Type 4 - Final
Not Detected
07/21/23 13:43 Nasalpharynx Rhinovirus (PCR) - Final
Not Detected
07/20/23 12:39 Blood/Venous Blood Culture - Preliminary
No Growth in 24 hours- Final report to follow
07/20/23 12:39 Blood/Venous Blood Culture - Preliminary
No Growth in 24 hours- Final report to follow
07/20/23 18:07 Sputum Respiratory Culture - Preliminary
Usual Respiratory Claudette
07/20/23 18:07 Sputum Gram Stain - Preliminary
07/20/23 15:21 Nasal Swab Influenza Types A & B (LAURIE) - Final
Negative for Influenza A & B, NAAT
Negative results must be combined with clinical observations
and patient history.
Nucleic Acid Amplification test (NAAT)performed on the
[employer] platform.
--- NOTE | 2023-07-22 09:11 | CM ---
Addendum entered by Debbie William 07/22/23 11:20:
Plan for transfer to [facility] hospice. CM requested [employer] Pad [employer] from [facility] as will continue to follow for discharge planning needs.
Original Note:
Patient seen at bedside with physician. Patient requested to talk to hospice team, CM sent tt to Liaison and she will review and come to talk to patient and family. Patient to come around 11am. CM will send referral to [facility] hopsice for review.
Awaiting family/patient discussion with hospice team. CM will continue to follow for discharge planning needs.
Plan; pending assessment with liaison vs SNF pending functional assessments.
--- NOTE | 2023-07-22 09:16 | W.PN.ID1 ---
Date of Service
Date of Service: July 22, 2023
Today's Communication
- seems to have progressive lung cancer driving the hypoxemia - cultures have been negative and patient decompensating despite aggressive, broad spectrum Rx. With negative cultures the risks of further antibiotics likely outweigh the benefits -
stopped
Assessment / Plan
Pneumonia
Leukocytosis
Stage IV Lung Cancer with malignant effusion
- sputum culture: negative
- resp viral panel also negative
- seems to have progressive lung cancer driving the hypoxemia - cultures have been negative and patient decompensating despite aggressive, broad spectrum Rx. With negative cultures the risks of further antibiotics likely outweigh the benefits -
stopped
- would consider goals of care discussions
Chief Complaint
-: Pneumonia
Subjective / Review of Systems
afebrile
bp stable
increasing FiO2 requirement
stable leukocytosis
cr stable
resp viral panel negative
sputum usual resp itz
blood cultures no growth to date
note Dr Cartagena opinion 'significant disease progression noted in 2 weeks since last comparative scan last month' which she has reviewed with patient
Vital Signs / Physical Exam
Vital Signs
Vital Signs
Temp Pulse Resp BP Pulse Ox
97.7 F 121 22 113/72 96
07/22/23 07:03 07/22/23 08:25 07/22/23 06:00 07/22/23 08:25 07/22/23 06:00
Physical Exam
Constitutional: No Acute Distress
Cardiovascular: Regular Rate and S1/S2; Negative Murmur or Rub
Pulmonary: Clear (on anterior exam), Symmetric and Other (tachypneic); Negative Wheezes or Rales
Gastrointestinal: Soft, Non Tender, Non Distended and Normal Bowel Sounds
Skin: Warm and Dry; Negative Rash or Jaundice
Neurological: Awake
Objective Data
Lab Data
Lab Results
07/22/23 03:20
04/10/24 06:46
PT 16.4 Sec (11.4-14.6) H 07/20/23 11:56
INR 1.34 07/20/23 11:56
APTT 34.3 Sec (23.4-35.0) 07/20/23 11:56
Estimated Creat Clear 66 ml/min 07/22/23 03:20
Lactic Acid 2.2 mmol/L (0.7-2.0) H 07/22/23 06:46
Total Bilirubin 0.2 mg/dl (0.2-1.3) 07/22/23 03:20
AST 24 U/L (17-59) 07/22/23 03:20
ALT 18 U/L (0-50) 07/22/23 03:20
Alkaline Phosphatase 123 U/L (38-126) 07/22/23 03:20
Most recent labs reviewed.
Micro Results:
07/21/23 13:43 Influenza Type A (PCR) - Final
Nasalpharynx Not Detected
Influenza Type A (H1) (PCR) - Final
Not Detected
Influenza Type A (H3) (PCR) - Final
Not Detected
Influenza Type B (PCR) - Final
Not Detected
Resp Syncytial Virus Type A (PCR) - Final
Not Detected
Resp Syncytial Virus Type B (PCR) - Final
Not Detected
Adenovirus DNA (PCR) - Final
Not Detected
Human Metapneumovirus (PCR) - Final
Not Detected
Parainfluenza Virus Type 1 (PCR) - Final
Not Detected
Parainfluenza Virus Type 2 (PCR) - Final
Not Detected
Parainfluenza Virus Type 3 (PCR) - Final
Not Detected
Parainfluenza Virus Type 4 - Final
Not Detected
Rhinovirus (PCR) - Final
Not Detected
07/20/23 12:39 Blood Culture - Preliminary
Blood/Venous No Growth in 24 hours- Final report to follow
07/20/23 12:39 Blood Culture - Preliminary
Blood/Venous No Growth in 24 hours- Final report to follow
07/20/23 18:07 Respiratory Culture - Preliminary
Sputum Usual Respiratory Itz
Gram Stain - Preliminary
07/20/23 15:21 Influenza Types A & B (LAURIE) - Final
Nasal Swab Negative for Influenza A & B, NAAT
Negative results must be combined with clinical observations
and patient history.
Nucleic Acid Amplification test (NAAT)performed on the
[employer] platform.
Care Review
Plan reviewed with: Physician (Dr Stone and Dr Hendrickson - futility of further antibiotics)
--- NOTE | 2023-07-22 10:03 | W.PN.HOSP.TC ---
Addendum entered and electronically signed by Lurdes Stone MD 07/22/23 17:59:
Based on the patient's nutrition consult, patient does qualify for severe protein calorie malnutrition of malignancy
Original Note:
Today's Communication/Plan
-
hospice eval
anticipate GIP
Assessment / Plan
Assessment / Plan
Patient is a 72-year-old male
Sepsis (by criteria) with acute hypoxemic respiratory failure due to likely community-acquired pneumonia--patient is immunocompromised from his Tepotinib --apprec ID, cultures neg, likely progressive cancer--ID stopping Rocephin and doxycycline
(agree)--apprec pulm--consult hospice
Paroxysmal atrial fibrillation--moved to IMU for cardizem drip, now on orals--continue IV fluids--continue Lovenox--continue metoprolol with parameters--apprec cards
Type 2 diabetes mellitus--with insulin pump-- states that the patient pump is malfunctioning currently--went into DKA and placed on insulin drip--apprec DENTURE CONTOUR WIRE SPECIALIST-DM help with management--agree with SQ
Metastatic lung cancer--patient was to have appointment at [facility] day of admission but didn't make it-- poor prognosis --has PleurX drained every 4 days, was drained day of admission--agree with pulm that pt is end
stage/dying--consult hospice
hypocalcemia--replete
anemia of chronic disease--HGB dropped with IVF hydration
Coronary artery disease--status post bypass surgery in past--continue aspirin, beta-oscar, statin
Prostate cancer--noted status post prostatectomy
Essential hypertension--continue medications with parameters
Hyperlipidemia--continue statin therapy
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
Gastroesophageal reflux disease--continue omeprazole
DVT prophylaxis--Lovenox
CODE STATUS--DNR/DNI
prognosis poor
Updated by phone 07/21/23
Anticipated Discharge: Within 24 hours
Subjective/Interval History
-
Date of Service: July 22, 2023
pt had bad night--SOB
Objective Data
-
Labs:
Laboratory Results
07/21/23 07/22/23 07/22/23
22:00 00:00 02:00
WBC
Hgb
Hct
Plt Count
HCO3 Cancelled
Sodium
Potassium Cancelled Cancelled Cancelled
Chloride
Carbon Dioxide
BUN
Creatinine
Glucose
Calcium
Total Bilirubin
AST
ALT
Alkaline Phosphatase
07/22/23 07/22/23 07/22/23
03:20 03:20 06:46
WBC 17.3 H
Hgb 11.4 L
Hct 34.9 L
Plt Count 223
HCO3
Sodium 129 L
Potassium 4.1 Cancelled 4.1
Chloride 106
Carbon Dioxide 19 L
BUN 26 H
Creatinine 1.0
Glucose 123 H
Calcium 7.3 L
Total Bilirubin 0.2
AST 24
ALT 18
Alkaline Phosphatase 123
Vital Signs:
max temp for 24 hours
07/22/23
02:46
Temp 98.5 F
Vital Signs
Temp Pulse Resp BP Pulse Ox
97.7 F 121 30 113/72 96
07/22/23 07:03 07/22/23 08:25 07/22/23 08:13 07/22/23 08:25 07/22/23 08:13
I&O
07/21/23 07/22/23 07/23/23
06:59 06:59 06:59
Intake Total 1979 840 / 840
Balance 1979 840 / 840
Review of Systems
-
Unable to obtain full review of systems at this time due to: Acuity
Respiratory: Reports Trouble Breathing
Physical Exam
-
General: Respiratory Distress (short of breath, shallow breathing), Appears Chronically Ill and Cachectic
HEENT: Normocephalic and Atraumatic
Respiratory: Decreased Breath Sounds
Cardiac: Regular Rhythm, S1/S2 and Tachycardic
GI: Soft, Nontender, Nondistended and Normal Bowel Sounds
Musculoskeletal: No Clubbing, No Cyanosis and No Edema
Neuro: Awake
[2023-07-22 10:18] LABS: Glucose - Point of Care 193 mg/dl (70-99)
--- NOTE | 2023-07-22 10:22 | PN.DE.MGMTRT ---
Insulin Management
- -
07/22/2023: Diabetes Management with Insulin Pump Consult Follow up
Pt admitted with Acute hypoxemic respiratory failure due to likely CAP, well known to Diabetes team from previous hospital admissions.
PMH: ASCVD, HTN, HCL, prostate CA, stage IV adenocarcinoma of the lung DX 08/2021 for which he is on oral chemotherapy (tepotinib RTK-I) and has pleurex tube, and T2DM. 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 Today Cr 1.4,
eGFR 53.7.
Pt more lethargic this AM he does awaken but drifts right off. He initially stated he wanted to go back on his pump but due to increased work of breathing morphine will be started and hospice will visit with patient and ..
Patients did bring pump and supplies in this morning. Patient stated yesterday the pump was replaced because it malfunctioned, and new pump is not 'right'. Last A1C was 8.7% on 06/08/23. Has his CGM in place.
GAP has closed but remained on DKA protocol overnight.
Will start AC novolog 3 units to be given only if patient eats a meal. Lantus 30 units now then insulin infusion and IV fluids off in 1 hour. Discussed with nurse. Diet not ordered until speech sees patient to evaluate.
Diabetes History
- -
Type of Diabetes: 2 requiring insulin
Pre-Admission Diabetes Regimen
07/21/23 07/21/23 07/21/23
11:45 13:43 20:56
Creatinine 1.4 H 1.3 1.1
07/22/23
03:20
Creatinine 1.0
Insulin Pump Settings
IP Diabetes Regimen
07/21/23 07/21/23 07/21/23
10:32 11:33 11:45
Glucose 248 H
POC Glucose 319 H 304 H
07/21/23 07/21/23 07/21/23
12:33 13:31 13:43
Glucose 190 H
POC Glucose 217 H 289 H
07/21/23 07/21/23 07/21/23
14:37 15:49 16:31
Glucose
POC Glucose 230 H 188 H 145 H
07/21/23 07/21/23 07/21/23
17:40 18:38 20:26
Glucose
POC Glucose 114 H 118 H 188 H
07/21/23 07/21/23 07/21/23
20:56 21:33 22:32
Glucose 205 H
POC Glucose 181 H 187 H
07/21/23 07/22/23 07/22/23
23:31 00:35 01:34
Glucose
POC Glucose 186 H 189 H 201 H
07/22/23 07/22/23 07/22/23
02:42 03:20 03:43
Glucose 123 H
POC Glucose 149 H 174 H
07/22/23 07/22/23 07/22/23
05:44 06:46 08:04
Glucose
POC Glucose 128 H 152 H 131 H
07/22/23 07/22/23
08:55 10:03
Glucose
POC Glucose 129 H 193 H
Patient Education
[2023-07-22] MEDS: STERILE WATER FOR INJECTION IV (10:28)
[2023-07-22] MEDS: MAXIPIME IV (10:28)
[2023-07-22] MEDS: MORPHINE SULFATE 1 MG IV (11:26)
--- NOTE | 2023-07-22 11:44 | HOSPNOTE ---
Hospice referral received and will assess the patient and discuss hospice and the philosophy. The patient and spouse are in agreement with hospice care and the philosophy and the patient will be admitted inpatient hospice. Admissions called, case
management and attending aware of plan.
--- NOTE | 2023-07-22 11:50 | PTCARENOTE ---
Pt met with home hospice rn. Pt and agree to hospice admission. Pt request to immediately discontinue accuchecks and insulin. MD placing hospice/comfort orders today. 1x dose morphine given as ordered.
--- NOTE | 2023-07-22 14:48 | PN.CDI ---
CDI
- -
CDI:
Physician Documentation Request
Admit Date: 07/20/23 14:44
Dear Doctor Bertha ,
Please review the following and provide your response in the progress notes.
Clinical Indicators:
Pt admitted with Sepsis 2/2 Pneumonia / Malignant pleural effusion/Lung cancer
Documented in the record Cachexia
Nutrition consult 07/20,'(07/20) 155lb 10.342oz BMI 22.3 normal wt/ht, (07/19) 148lb; Wt hx (07/05) 150lb, (07/02) 153lb, (2) 173lb. Significant 18lb 12% weight loss x 2 months....(07/20) 155lb 10.342oz BMI 22.3 normal wt/ht, (07/19) 148lb; Wt hx (07/05)
150lb, (07/02) 153lb, (2) 173lb. Significant 18lb 12% weight loss x 2 months... Pt meets criteria for severe protein calorie malnutrition of chronic illness with prolonged poor intake prior to hospital admit <75% for >/=1mo, severe loss
subcutaneous fat (orbital, tricep) and severe muscle loss (temporal buccal, clavicle)....'
Based on the information, which of the following most accurately represents the patient's nutritional status?
Severe Protein Calorie Malnutrition
Other (please specify)
[place] Criteria ([employer] Hospitalist 2017)
2 or more criteria must be present for either
non severe or severe malnutrition
Note that the criteria differs related to the
presence of an acute or chronic illness
Acute Illness Chronic Illness
Energy Intake Non Severe: <75% for >7 days Non Severe: <75% for >1 month
Severe: <50% for >5 days Severe: <75% for >1 month
Weight Loss Non Severe: 1-2% over 1 week Non Severe: 5% over 1 month
5% over 1 month 7.5% over 3 months
7.5% over 3 months 10% over 6 months
1 year N/A 20% over 1 year
Severe: >2% over 1 week Severe: >5% over 1 month
>5% over 1 month >7.5% over 3 months
>7.5% over 3 months >10% over 6 months
1 year N/A >20% over 1 year
Body Fat Non Severe: Mild Decrease Non Severe: Mild Loss
Severe: Moderate Decrease Severe: Severe Loss
Muscle Mass Non Severe: Mild Decrease Non Severe: Mild Loss
Severe: Moderate Decrease Severe: Severe Loss
Fluid Accumulation Non Severe: Mild Accumulation Non Severe: Mild Accumulation
Severe: Moderate to severe Severe: Moderate to severe
accumulation accumulation
Reduced Director Radiation Oncology Strength Non Severe: N/A Non Severe: N/A
Severe: Measurably reduced Severe: Measurably reduced
Use of terms such as suspected, likely, concern for, or probable (associated with a specific diagnosis that is being evaluated, monitored, or treated as if it exists) are acceptable and can be coded in the inpatient setting, when documented at the
time of discharge.
Thank you,
Angie Alanis RN
CDI Specialist
[facility]
Please use your independent medical judgment in providing your response.
--- NOTE | 2023-07-22 17:47 | W.DCSUMMARY ---
Discharge Summary
Discharge Data
Date of Admission: 07/20/23
Date of Discharge: 07/22/23
-
Pending Results: No
Hospital Course
Primary care physician : Tamanna Schmitt
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
secretion, gastroesophageal reflux disease
Hospital Course : Patient was a 72-year-old male who was recently hospitalized at [facility] for an insulin pump malfunction who has a history of metastatic lung cancer. Patient was supposed to see [facility] for an appointment on the
day of admission. Visiting nurses came to drain his pleural fluid from his Pleurx catheter but unfortunately the patient had shortness of breath and pulse ox was noted to be a 60% at home. Patient does not wear home oxygen. He was brought in for
evaluation and treatment. Workup was thought to be consistent with sepsis and right lower lobe pneumonia. Patient was admitted.
Problem #1: Acute hypoxemic respiratory failure with presumed sepsis on admission from what was thought to be community-acquired pneumonia. Patient was admitted and was seen in consultation by infectious disease and pulmonary. Patient was started
on broad-spectrum antibiotics and cultures were taken which were negative. Due to the patient's decline, antibiotics were stopped. Pulmonary has had conversation with the patient and his regarding the progression of his lung cancer by
comparing his most recent CAT scan of his chest to the previous one 1 month prior. Patient also has had increasing respiratory failure with increasing oxygen requirements and was up to 12 L of oxygen. Antibiotics were not helping. Patient was
given IV fluids. Lactates were followed and were persistently elevated but did bounce around.
Problem #2: Type 2 diabetes mellitus with diabetic ketoacidosis. Patient has his own insulin pump however it was malfunctioning. We did consult the diabetic nurse practitioners for insulin pump assistance but the patient unfortunately went into
diabetic ketoacidosis. He was placed on an insulin drip with frequently checked blood sugars and adjustment of fluids based on his glucose. Patient's gap did close and the plan was to transition him to his insulin pump however his did not
bring in the proper equipment. He was continued on the insulin drip until such time that he was signed onto hospice.
Problem #3: Progressive metastatic lung cancer. Patient had Pleurx catheter which was drained. He had increasing trapped lung from that area. CAT scan showed progressive metastatic disease. Pulmonary has discussed the poor prognosis with the
patient and his . He is in agreement to sign onto hospice. Hospice has been consulted and the patient meets general inpatient level of care for hospice. He has been started on a morphine drip.
Problem #4: All other medical issues. These include Paroxysmal atrial fibrillation, anemia of chronic disease, coronary artery disease, history of prostate cancer, essential hypertension, hyperlipidemia, hyponatremia due to syndrome of
inappropriate antidiuretic hormone secretion, gastroesophageal reflux disease. These medical issues contributed to his declining performance status. Patient was in rapid atrial fibrillation and was started on IV Cardizem. He did eventually
transition off of the drip to oral medications. Again this just contributed to his illness.
Patient has asked for a marking machine tender. He has signed the consents to be admitted to inpatient hospice. Morphine drip has been started and will titrate to comfort. Family in agreement.
Time for discharge 40 minutes.
Please let this serve as the admission history and physical for general inpatient hospice as well.
Discharge Plan
-
Patient Disposition: Hospice - Inpatient DH
Discharge Orders:
Discharge Patient (As Directed); Ordered 07/22/23
Ordered By: Lurdes Stone
Discharge Date and Time
Discharge Date/Time: 07/22/23 12:01
Print Language: [place]
[2023-07-28 08:46] LABS: Glucose - Point of Care 119 mg/dl (70-99)
== END 2023-07-22 12:01 | disposition hospice, inpatient (51) | DRG 871 ==
LOC: IMU 14:44
PROVIDERS: Hospitalist; Nurse Practitioner Family; ADMITTING PHYSICIAN Internal Medicine; CONSULT PHYSICIAN Internal Medicine; CONSULT PHYSICIAN Student in an Organized Health Care Education/Training Program; EMERGENCY PHYSICIAN Emergency Medicine; FAMILY PHYSICIAN Internal Medicine; OTHER PHYSICIAN Nuclear Medicine Nuclear Cardiology
DX: A41.9 Sepsis, unspecified organism (principal); E11.10 Type 2 diabetes mellitus with ketoacidosis without coma; I50.31 Acute diastolic (congestive) heart failure; J18.9 Pneumonia, unspecified organism; J96.01 Acute respiratory failure with hypoxia; E43 Unspecified severe protein-calorie malnutrition; J91.0 Malignant pleural effusion; J93.9 Pneumothorax, unspecified; J94.8 Other specified pleural conditions; D84.821 Immunodeficiency due to drugs; E22.2 Syndrome of inappropriate secretion of antidiuretic hormone; C79.51 Secondary malignant neoplasm of bone; C34.92 Malignant neoplasm of unspecified part of left bronchus or lung; Z51.5 Encounter for palliative care; E78.00 Pure hypercholesterolemia, unspecified; I11.0 Hypertensive heart disease with heart failure; I25.10 Atherosclerotic heart disease of native coronary artery without angina pectoris; I48.0 Paroxysmal atrial fibrillation; E11.40 Type 2 diabetes mellitus with diabetic neuropathy, unspecified; D63.8 Anemia in other chronic diseases classified elsewhere; E83.51 Hypocalcemia; I45.10 Unspecified right bundle-branch block; K21.9 Gastro-esophageal reflux disease without esophagitis; Z66 Do not resuscitate; Z96.41 Presence of insulin pump (external) (internal); Z95.1 Presence of aortocoronary bypass graft; Z85.46 Personal history of malignant neoplasm of prostate; Z79.82 Long term (current) use of aspirin; Z79.84 Long term (current) use of oral hypoglycemic drugs; Z92.21 Personal history of antineoplastic chemotherapy; Z79.4 Long term (current) use of insulin; Z88.8 Allergy status to other drugs, medicaments and biological substances; Z87.891 Personal history of nicotine dependence; Z79.69 Long term (current) use of other immunomodulators and immunosuppressants; Z90.79 Acquired absence of other genital organ(s); Z86.711 Personal history of pulmonary embolism; Z79.01 Long term (current) use of anticoagulants; Z68.22 Body mass index [BMI] 22.0-22.9, adult; Z11.52 Encounter for screening for COVID-19
CPT/HCPCS: 36600; 71045; 80048; 80053; 82010; 82962; 83605; 83735; 83880; 84132; 84484; 85025; 85027; 85610; 85730; 87040; 87070; 87205; 87502; 87633; 87811; 92610; 93005; 96361; 96365; 96367; 99291

== ENCOUNTER 2023-07-22 12:02 | Inpatient (IN) | payer OTHER, SELFPAY ==
--- NOTE | 2023-07-22 12:09 | PTCARENOTE ---
Pt admitted to inpatient hospice. Remains on IMU awaiting bed on . Family and pt provided education and met with aged or disabled care worker
--- NOTE | 2023-07-22 12:33 | CHAP ---
Addendum entered by Liseth Adler 07/22/23 15:27:
Monsignor Elliott provided Sacrament of the Sick (Last Rites) for Mr. Baxter as requested.
Original Note:
Physical Therapy Aide request relayed to Monsignor Elliott of [facility]. He anticipates arriving around 1pm today.
[2023-07-22] MEDS: MORPHINE SULFATE 2 MG IV ×3 (12:47→14:25)
[2023-07-22] MEDS: MORPHINE 100 IV (13:00)
[2023-07-22] MEDS: ATIVAN 0.5 MG PO (13:08)
--- NOTE | 2023-07-22 13:15 | HOSPNOTE ---
Patient admitted onto hospice is a 72yo male with a terminal diagnosis of secondary malignant neoplasm of unspecified lung. At the time of this admission the patient resides in the imu in bed 3350, is significantly dyspneic, RR 37, CO pain 8/10 in
his left chest. Pallor noted. Patient able to answer yes/no questions but too breathless at times to speak. Remains on 15L mid flow O22. Lungs with coarse crackles throughout, heart rate and rhythm is regular, positive bowel sounds. Patient has an
unstageable PI to the left heel and an epithelialized wound to the left ankle. Anxiety noted. A prn dose of ativan was administered at this time, morphine drip started at step 2. Family verbalizes understanding of patient's GIP status and hospice
philosophy, grieving appropriately. No questions or concerns at this time. CTI reviewed with Dr Stone and Dr Villalobos.
[2023-07-22] MEDS: ATIVAN 0.5 MG IV (14:26)
[2023-07-22] MEDS: NSS (PRESERVATIVE FREE) 0.25 ML IV (14:26)
--- NOTE | 2023-07-22 14:36 | CM ---
Patient now inpatient hospice with [facility]. CM will continue to follow for discharge planning needs.
Plan; GIP hospice
[2023-07-22] MEDS: MORPHINE SULFATE 3 MG IV (14:47)
[2023-07-22] MEDS: ROBINUL 0.200000000000000011 MG IV (14:54)
[2023-07-22] MEDS: MORPHINE SULFATE 6 MG IV ×4 (15:08→22:01)
--- NOTE | 2023-07-22 15:13 | PTCARENOTE ---
Pt with increase in end of life SOB and discomfort. Breakthrough doses given as ordered. Pt morphine drip increased as ordered and per Dr. Stone. IV ativan and Rubinol given as well. Pt arousable. reports SOB when arouses. some grunting. RN at
bedside for continuous treatment of end of life pain. Pt is requiring additional breakthrough doses q20 minutes.
--- NOTE | 2023-07-22 22:44 | PTCARENOTE ---
Addendum entered by Hillary Toledo RN 07/23/23 00:13:
postmortem care provided.
Original Note:
Pt at 2210, 07/22/23. Family at bedside. Gift of life notified at 2215. Postmortem care will be provided after family leaves.
--- NOTE | 2023-07-22 23:14 | W.PN.DEATH ---
Pronouncement of
-
Called to see patient to pronounce.
No spontaneous heart tones or respirations noted.
Patient not responsive to verbal stimuli.
Patient is pronounced .
Time of : 22:10
Date of : 07/22/23
Cause of : acute hypoxic respiratory, sepsis, pneumonia, metastatic lung cancer
Family Notified: Yes (at bedside)
--- NOTE | 2023-07-23 06:47 | W.DCSUMMARY ---
Addendum entered and electronically signed by Lurdes Stone MD 07/31/23 08:20:
documentation complete
Original Note:
Discharge Summary
Discharge Data
Date of Admission: 07/22/23
Date of Discharge: 07/31/23
-
Pending Results: No
Hospital Course
Primary care physician : Tamanna Schmitt
Principal Discharge diagnosis : Acute hypoxemic respiratory failure from progressive metastatic lung cancer
Chronic Discharge diagnosis : Type 2 diabetes mellitus with diabetic ketoacidosis, presumed sepsis from presumed community-acquired pneumonia, paroxysmal atrial fibrillation, anemia of chronic disease, coronary artery disease, history of prostate
cancer, essential hypertension, hyperlipidemia, hyponatremia due to syndrome of inappropriate antidiuretic hormone secretion, gastroesophageal reflux disease
Hospital Course : Patient was a 72-year-old male who had progressive metastatic lung cancer. He was admitted to inpatient hospice after he was found not to progress and not to improve with IV antibiotics for presumed sepsis and pneumonia. Patient
was admitted to inpatient hospice on 07/22/2023. Morphine drip was started for comfort. Patient on July 22, 2023 at 10:10 PM. Family was at the bedside.
Discharge Plan
-
Patient Disposition:
Date/Time
Date/Time: 07/22/23 22:10
Discharge Date and Time
Discharge Date/Time: 07/22/23 22:10
Print Language: AZERI
== END 2023-07-22 22:10 | disposition expired | DRG 951 ==
LOC: IMU 12:02
PROVIDERS: ADMITTING PHYSICIAN Internal Medicine
DX: Z51.5 Encounter for palliative care (principal); A41.9 Sepsis, unspecified organism; E11.10 Type 2 diabetes mellitus with ketoacidosis without coma; J96.01 Acute respiratory failure with hypoxia; J18.9 Pneumonia, unspecified organism; C34.92 Malignant neoplasm of unspecified part of left bronchus or lung; C79.9 Secondary malignant neoplasm of unspecified site; E22.2 Syndrome of inappropriate secretion of antidiuretic hormone; D63.8 Anemia in other chronic diseases classified elsewhere; I10 Essential (primary) hypertension; I25.10 Atherosclerotic heart disease of native coronary artery without angina pectoris; E78.5 Hyperlipidemia, unspecified; K21.9 Gastro-esophageal reflux disease without esophagitis; I48.0 Paroxysmal atrial fibrillation; Z85.46 Personal history of malignant neoplasm of prostate